=== PATIENT | male | born 1985 ===

== ENCOUNTER 2016-09-13 23:59 | Emergency (ER) | payer OTHER ==
[2016-09-14 00:08] VITALS: BP 140/68; PULSE 95; RESP 16; TEMP 96.6; O2SAT 100
[2016-09-14 01:44] LABS: HEMOGLOBIN 14.8 g/dL (12.0-18.0); MEAN CELL VOLUME 90.7 fl (80.0-94.0); MEAN CORPUSCULAR HEMOGLOBIN 30.4 pg (27.0-31.0); MEAN CORPUSCULAR HGB CONC 33.5 g/dL (33.0-37.0); RBC 4.87 Mil/uL (4.40-5.90); RED CELL DISTRIBUTION WIDTH 12.9 % (11.5-14.5)
[2016-09-14 01:49] LABS: ALBUMIN 4.7 g/dL (3.5-5.0)
[2016-09-14 01:52] LABS: AST/SGOT 26 U/L (17-59); GFR AFRICAN-AMERICAN > 60; GFR NON-AFRICAN AMERICAN 60
[2016-09-14 01:53] LABS: ALB/GLOB RATIO 1.6 (1.0-2.1); ALT/SGPT 46 U/L (21-72); BLOOD UREA NITROGEN 19 mg/dl (9-20); CALCIUM 9.8 mg/dL (8.4-10.2)
--- NOTE | 2016-09-14 03:53 | ED PDOC ---
HPI: Skin/Bite Injury Time Seen by Provider: 09/14/16 00:08 Chief Complaint (Nursing): Abnormal Skin Integrity Chief Complaint (Provider): Rash on feet and lower legs History Per: Patient History/Exam Limitations: no limitations Onset/Duration Of Symptoms: Days Current Symptoms Are (Timing): Still Present Quality Of Symptoms: Painful, Itching Severity: Moderate Pain Scale Rating Of: 5 Additional Complaint(s): Pt states he has been having itchy, burning and painful rash on the feet for a few weeks. PT was seen by Dr. Drake. Pt was given bactrim and ketoconazole. Pt states he has been taking it for 4 days and the rash is spreading. Pt reports red areas on the lower legs. No fever/chills. Past Medical History Reviewed: Historical Data, Nursing Documentation, Vital Signs Vital Signs: Last Vital Signs Temp 96.6 F L 09/14/16 00:04 Pulse 95 H 09/14/16 00:04 Resp 16 09/14/16 00:04 BP 140/68 09/14/16 00:04 Pulse Ox 100 09/14/16 03:58 - Medical History PMH: No Chronic Diseases Denies: HIV, Chronic Kidney Disease - Surgical History Surgical History: No Surg Hx - Family History Family History: States: No Known Family Hx - Living Arrangements Living Arrangements: With Family - Social History Current smoker - smoking cessation education provided: No - Home Medications Home Medications: Ambulatory Orders Medication Instructions Recorded Ibuprofen [Motrin Tab] 800 mg PO TID #60 tab 09/30/14 Valacyclovir HCl [Valtrex] 500 mg PO BIDPC #14 tab 09/30/14 Permethrin 5% [Permethrin 5% Cream] 30 g TOP ONCE #30 tube 09/14/16 - Allergies Allergies/Adverse Reactions: Allergies Allergy/AdvReac Type Severity Reaction Status Date / Time No Known Allergies Allergy Verified 09/14/16 00:04 Review of Systems ROS Statement: Except As Marked, All Systems Reviewed And Found Negative Constitutional: Negative for: Fever, Chills Physical Exam - Reviewed Nursing Documentation Reviewed: Yes Vital Signs Reviewed: Yes - Physical Exam Appears: Positive for: Well, Non-toxic, No Acute Distress Head Exam: Positive for: ATRAUMATIC, NORMAL INSPECTION, NORMOCEPHALIC Skin: Positive for: Warm, Rash (Peeling skin on the feet, (+) erythematous lesions on the lower legs with a few areas of burrows ). Negative for: Normal Color Eye Exam: Positive for: Normal appearance ENT: Positive for: Normal ENT Inspection Neck: Positive for: Normal, Painless ROM Respiratory: Negative for: Accessory Muscle Use, Respiratory Distress Gastrointestinal/Abdominal: Positive for: Normal Exam, Bowel Sounds, Soft Back: Positive for: Normal Inspection Extremity: Positive for: Normal ROM. Negative for: Tenderness Neurologic/Psych: Positive for: Alert, Oriented - Laboratory Results Result Diagrams: 09/14/16 01:42 09/14/16 01:42 - ECG O2 Sat by Pulse Oximetry: 100 Disposition - Clinical Impression Clinical Impression: Scabies - Patient ED Disposition Is Patient to be Admitted: No - Disposition Referrals: Tulio Drake MD [Primary Care Provider] - Disposition: Routine/Home Disposition Time: 03:47 Condition: GOOD Prescriptions: Permethrin 5% [Permethrin 5% Cream] 30 g TOP ONCE #30 tube Instructions: Scabies (ED)
== END 2016-09-14 04:15 | disposition home or self-care (01) ==
LOC: H.ER 23:59
DX: B86 Scabies (principal)

== ENCOUNTER 2017-10-11 17:21 | Emergency (ER) | payer SELFPAY ==
[2017-10-11 17:30] VITALS: PULSE 65; TEMP 98.5; O2SAT 99
[2017-10-11] MEDS ORDERED: Iohexol 240 (50 ml) PO ONE (18:40)
[2017-10-11] MEDS ORDERED: Sodium Chloride 0.9% 1,000 ML IV STA (18:41)
--- NOTE | 2017-10-11 19:17 | ED PDOC ---
HPI: Abdomen Time Seen by Provider: 10/11/17 17:57 Chief Complaint (Nursing): Abdominal Pain Chief Complaint (Provider): Abdominal Pain History Per: Patient History/Exam Limitations: no limitations Onset/Duration Of Symptoms: Days (x30) Current Symptoms Are (Timing): Still Present Location Of Pain/Discomfort: LLQ Additional Complaint(s): 31 y/o male with no significant PMHx presents to the ED for evaluation of constant left lower abdominal pain, worsening since onset one month ago. Patient states pain is now radiating down to his groin, testicular area and left upper leg as well as up to the left upper quadrant and left chest. Patient reports of taking Motrin with minimal relief. Patient states pain is associated with decreased appetite and mild nausea. In addition, patient states approximately two-three days ago while palpating his testicles of feeling a bump on his left groin. Denies vomiting, diarrhea, constipation, fever, back pain, sick contacts and recent travel. PMD: Dr. Drake (However, patient has not seen him in a while) Past Medical History Reviewed: Historical Data, Nursing Documentation, Vital Signs Vital Signs: Last Vital Signs Temp 98.5 F 10/12/17 00:10 Pulse 65 10/12/17 00:10 Resp 14 10/12/17 00:10 BP 116/74 10/12/17 00:10 Pulse Ox 99 10/12/17 16:38 - Medical History PMH: No Chronic Diseases Denies: HIV, Chronic Kidney Disease - Surgical History Other surgeries: Finger reimplantation and left knee infection - Family History Family History: States: Unknown Family Hx - Social History Current smoker - smoking cessation education provided: No Alcohol: Occasional (once every couple of weeks) Drugs: Denies - Home Medications Home Medications: Ambulatory Orders Medication Instructions Recorded Ibuprofen [Motrin Tab] 800 mg PO TID #60 tab 09/30/14 Valacyclovir HCl [Valtrex] 500 mg PO BIDPC #14 tab 09/30/14 Permethrin 5% [Permethrin 5% Cream] 30 g TOP ONCE #30 tube 09/14/16 Dicyclomine [Bentyl] 20 mg PO QID PRN #20 tab 10/12/17 Naproxen [Naprosyn] 1 tab PO BID PRN #30 tab 10/12/17 - Allergies Allergies/Adverse Reactions: Allergies Allergy/AdvReac Type Severity Reaction Status Date / Time No Known Allergies Allergy Verified 09/14/16 00:04 Review of Systems ROS Statement: Except As Marked, All Systems Reviewed And Found Negative (as per HPI) Constitutional: Negative for: Fever Cardiovascular: Positive for: Chest Pain Gastrointestinal: Positive for: Nausea, Abdominal Pain, Other (Decreased appetite). Negative for: Vomiting, Diarrhea, Constipation Genitourinary Male: Positive for: Other (Groin pain, Testicular pain) Musculoskeletal: Positive for: Leg Pain (left upper leg). Negative for: Back Pain Physical Exam - Reviewed Nursing Documentation Reviewed: Yes Vital Signs Reviewed: Yes - Physical Exam Appears: Positive for: Non-toxic, In Acute Distress (mild, painful) Head Exam: Positive for: ATRAUMATIC, NORMOCEPHALIC Skin: Positive for: Warm, Dry Eye Exam: Positive for: EOMI, PERRL ENT: Negative for: Pharyngeal Erythema, Tonsillar Exudate Neck: Positive for: Painless ROM, Supple Cardiovascular/Chest: Positive for: Regular Rate, Rhythm. Negative for: Murmur Respiratory: Positive for: Normal Breath Sounds. Negative for: Wheezing Gastrointestinal/Abdominal: Positive for: Normal Exam, Soft, Tenderness (TO THE LEFT LOWER QUADRANT), Distended. 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 Small papula noted to the posterior scrotal area consistent with folliculitis ) Back: Positive for: Normal Inspection. Negative for: L CVA Tenderness, R CVA Tenderness Extremity: Positive for: Normal ROM. Negative for: Deformity - Laboratory Results Result Diagrams: 10/11/17 19:15 10/11/17 19:15 - ECG O2 Sat by Pulse Oximetry: 99 (RA) Pulse Ox Interpretation: Normal Medical Decision Making Medical Decision Making: Time: 1840 Impression: Leg lower quadrant pain Differentials include but not limited to colitis, diverticulitis, enteritis and hernia Plan: -- CT Abd/Pelvis PO & IV Contrast -- Sodium Chloride IV 1000 mls/hr -- Iohexol 50 ml PO -- Toradol 15 mg IVP -- IV Insertion Time: 1914 Plan: -- CMP -- Lipase -- ED Urine Dipstick -- CBC with differentials -- CXR Portable EXAM: CT Abdomen and Pelvis With Intravenous Contrast CLINICAL HISTORY: 31 years old, male; Pain; Abdominal pain; Localized; Left lower quadrant (llq); Additional info: Llq pain. Groin pain TECHNIQUE: Axial computed tomography images of the abdomen and pelvis with intravenous contrast. All CT scans at this facility use at least one of these dose optimization techniques: automated exposure control; mA and/or kV adjustment per patient size (includes targeted exams where dose is matched to clinical indication); or iterative reconstruction. Coronal and sagittal reformatted images were created and reviewed. CONTRAST: 95 mL of [id number] was administered intravenously. COMPARISON: No relevant prior studies available. FINDINGS: Lung bases: Unremarkable. No mass. No consolidation. ABDOMEN: Liver: Unremarkable. No mass. Gallbladder and bile ducts: Unremarkable. No calcified stones. No ductal dilation. Pancreas: Unremarkable. No mass. No ductal dilation. Spleen: Unremarkable. No splenomegaly. Adrenals: Unremarkable. No mass. Kidneys and ureters: Unremarkable. No solid mass. No hydronephrosis. Stomach and bowel: Unremarkable. No obstruction. No mucosal thickening. PELVIS: Appendix: Normal appendix. Bladder: Unremarkable. No mass. Reproductive: Unremarkable as visualized. ABDOMEN and PELVIS: Intraperitoneal space: Unremarkable. No free air. No significant fluid collection. Bones/joints: No acute fracture. No dislocation. Soft tissues: Unremarkable. Vasculature: Unremarkable. No abdominal aortic aneurysm. Lymph nodes: Unremarkable. No enlarged lymph nodes. IMPRESSION: Normal abdomen and pelvis. Thank you for allowing us to participate in the care of your patient. Dictated and Authenticated by: Cheng Phillips MD 10/11/2017 11:12 PM Eastern Time ([place] & [place]) 1115p DW pt findings. Labs and CT unremarkable. Pain persists but milder. DW pt need for further outpatient evaluation, possibly with GI. Symptomatic treatment for now. Stable for dc. Scribe Attestation: Documented by Dolly Castellanos acting as a scribe for Dr. Moni Florian. Provider Scribe Attestation: All medical record entries made by the Scribe were at my direction and personally dictated by me. I have reviewed the chart and agree that the record accurately reflects my personal performance of the history, physical exam, medical decision making, and the department course for this patient. I have also personally directed, reviewed, and agree with the discharge instructions and disposition. Disposition - Clinical Impression Clinical Impression: Abdominal pain Counseled Patient/Family Regarding: Studies Performed, Diagnosis, Need For Followup, Rx Given - Disposition Referrals: [facility] [Outside] - 10/14/17 (FOLLOW UP AT CLINIC SO YOU CAN GET A REFERRAL TO THE GI CLINIC) Disposition: Routine/Home Disposition Time: 00:02 Condition: STABLE Prescriptions: Dicyclomine [Bentyl] 20 mg PO QID PRN #20 tab PRN Reason: abdominal pain Naproxen [Naprosyn] 1 tab PO BID PRN #30 tab PRN Reason: Pain Instructions: Acute Abdomen (Belly Pain), Ingrown Hair Forms: [facility] ED School/Work Excuse
[2017-10-11] MEDS ORDERED: Iohexol 240 (50 ml) ONE (19:21)
[2017-10-11 19:29] LABS: BASO % 0.3 % (0.0-2.0); EOS # 0.2 K/uL (0.0-0.7); EOS % 3.2 % (0.0-4.0); HEMOGLOBIN 16.3 g/dL (12.0-18.0); LYMPH # 1.9 K/uL (1.0-4.3); MEAN CELL VOLUME 90.8 fl (80.0-94.0); MEAN CORPUSCULAR HGB CONC 34.2 g/dL (33.0-37.0); MEAN PLATELET VOLUME 10.3 fl (7.2-11.7); MONO # 0.6 K/uL (0.0-0.8); MONO % 7.7 % (0.0-10.0); NEUT # 4.9 K/uL (1.8-7.0); NEUT % 63.8 % (50.0-75.0); NRBC % 0.1 % (0.0-0.0); RBC 5.26 Mil/uL (4.40-5.90); RED CELL DISTRIBUTION WIDTH 13.1 % (11.5-14.5); WHITE BLOOD COUNT 7.6 K/uL (4.8-10.8)
[2017-10-11 19:41] LABS: ALB/GLOB RATIO 1.4 (1.0-2.1); ALBUMIN 5.3 g/dL (3.5-5.0); ALT/SGPT 50 U/L (21-72); AST/SGOT 50 U/L (17-59); BLOOD UREA NITROGEN 13 mg/dl (9-20); CALCIUM 10.2 mg/dL (8.4-10.2); GFR NON-AFRICAN AMERICAN > 60; LIPASE 92 U/L (23-300)
[2017-10-11] MEDS ORDERED: Iohexol 300 100 ML IJ ONE (21:00)
[2017-10-11] MEDS ORDERED: Sodium Chloride 0.9% 50 ML IV ONE (21:01)
[2017-10-12 00:30] VITALS: BP 116/74; RESP 14
--- NOTE | 2017-10-12 15:29 | RAD ---
Date of service: 10/11/2017 HISTORY: chest pain COMPARISON: Chest 09/27/2014 FINDINGS: LUNGS: No active pulmonary disease. PLEURA: No significant pleural effusion identified, no pneumothorax apparent. Suspect minimal biapical pleural thickening CARDIOVASCULAR: Normal. OSSEOUS STRUCTURES: No significant abnormalities. VISUALIZED UPPER ABDOMEN: Normal. OTHER FINDINGS: None. IMPRESSION: No active disease.
--- NOTE | 2017-10-12 17:29 | CT ---
Date of service: 10/11/2017 PROCEDURE: CT abdomen pelvis HISTORY: LLQ pain COMPARISON: None. TECHNIQUE: Contiguous axial images of the abdomen and pelvis of following oral and intravenous injection of approximately 95 cc Omnipaque 300 Coronal and Sagittal reformats generated. Radiation dose: Total exam DLP = 914 the mGy-cm. This CT exam was performed using one or more of the following dose reduction techniques: Automated exposure control, adjustment of the mA and/or kV according to patient size, and/or use of iterative reconstruction technique. FINDINGS: LOWER THORAX: Unremarkable. LIVER: Liver exhibits normal size No gross lesion or ductal dilatation. Mild fatty hepatic infiltration. Portal and splenic veins are opacified. GALLBLADDER AND BILE DUCTS: Unremarkable. PANCREAS: Unremarkable. No mass. No ductal dilatation. SPLEEN: Unremarkable. No splenomegaly. ADRENALS: Unremarkable. KIDNEYS AND URETERS: Unremarkable. No stone or hydronephrosis. BLADDER: Urinary bladder incompletely distended which presumably in part accounts thick-walled appearance. Muscular hypertrophy may contribute. REPRODUCTIVE: Unremarkable. APPENDIX: Normal appendix. BOWEL: Unremarkable. No obstruction. No gross mural thickening. PERITONEUM: Unremarkable. No fluid collection. No free air. Tiny fat containing left hernia inguinal hernia LYMPH NODES: Few small nonspecific retroperitoneal lymph nodes are present. VASCULATURE: Unremarkable. No aortic aneurysm. BONES: No fracture or destructive lesion. OTHER FINDINGS: None. IMPRESSION: No acute intra abdominal pathology. . Wall thickening of the urinary bladder likely due to incomplete distention and muscular hypertrophy however correlation with urinalysis to exclude cystitis.
== END 2017-10-12 00:15 | disposition home or self-care (01) ==
LOC: H.ER 17:21
DX: R10.32 Left lower quadrant pain (principal)
CPT/HCPCS: 71045; 74177; 80053; 83690; 85025; 96361; 96374; 99284; J1885; J7030; Q9966; Q9967

== ENCOUNTER 2017-12-06 16:18 | Inpatient (IN) | payer BC ==
[2017-12-06 20:26] VITALS: BMI 28.1
[2017-12-07 07:02] LABS: BASO % 0.3 % (0.0-2.0); EOS # 0.3 K/uL (0.0-0.7); EOS % 3.4 % (0.0-4.0); HEMOGLOBIN 14.8 g/dL (12.0-18.0); MEAN CELL VOLUME 90.7 fl (80.0-94.0); MEAN CORPUSCULAR HEMOGLOBIN 31.4 pg (27.0-31.0); MEAN CORPUSCULAR HGB CONC 34.6 g/dL (33.0-37.0); MEAN PLATELET VOLUME 9.5 fl (7.2-11.7); MONO # 0.8 K/uL (0.0-0.8); MONO % 8.9 % (0.0-10.0); NEUT # 5.4 K/uL (1.8-7.0); NEUT % 63.4 % (50.0-75.0); NRBC % 0.1 % (0.0-0.0); RBC 4.72 Mil/uL (4.40-5.90); RED CELL DISTRIBUTION WIDTH 13.6 % (11.5-14.5); WHITE BLOOD COUNT 8.5 K/uL (4.8-10.8)
[2017-12-07 07:09] LABS: ALB/GLOB RATIO 1.3 (1.0-2.1); ALBUMIN 4.5 g/dL (3.5-5.0); ALT/SGPT 121 U/L (21-72); AST/SGOT 54 U/L (17-59); BLOOD UREA NITROGEN 20 mg/dl (9-20); CALCIUM 9.9 mg/dL (8.4-10.2); GFR NON-AFRICAN AMERICAN > 60
--- NOTE | 2017-12-07 14:23 | CP.PCM.CON ---
History of Present Illness - History of Present Illness History of Present Illness: Dr Darling PMR consultation on Carlito Patel, born 1985 who has been admitted to [facility] for acute inpatient rehabilitation following a left KINDRA distribution infarct in the ignacio-operative period of left inguinal hernia repair. He stated that in the recovery room he was joking around. No prior issues for this gentleman Review of Systems - Constitutional Constitutional: absent: Anorexia, Chills - EENT Eyes: absent: Change in Vision Nose/Mouth/Throat: absent: Nasal Congestion - Cardiovascular Cardiovascular: absent: Chest Pain - Respiratory Respiratory: absent: Dyspnea, Hemoptysis - Gastrointestinal Gastrointestinal: Constipation. absent: Abdominal Pain, Belching, Bloating - Musculoskeletal Musculoskeletal: absent: Back Pain - Integumentary Integumentary: absent: Bleeding Lesions - Neurological Neurological: Focal Weakness. absent: Abnormal Hearing, Abnormal Movements - Psychiatric Psychiatric: absent: Anxiety Past Patient History - Past Medical History & Family History Past Medical History?: No - Past Social History Smoking Status: See note Alcohol: None Drugs: Denies Home Situation {Lives}: With Family (stairs) - CARDIAC Hx Cardiac Disorders: No - PULMONARY Hx Respiratory Disorders: Yes Hx Asthma: Yes (Only when pt. was "a little kid") - NEUROLOGICAL Hx Neurological Disorder: No - HEENT Hx HEENT Problems: No - RENAL Hx Chronic Kidney Disease: No - ENDOCRINE/METABOLIC Hx Endocrine Disorders: No - HEMATOLOGICAL/ONCOLOGICAL Hx AIDS: No Hx Human Immunodeficiency Virus (HIV): No - INTEGUMENTARY Hx Dermatological Problems: No Other/Comment: CHICKEN POX - MUSCULOSKELETAL/RHEUMATOLOGICAL Hx Falls: No Other/Comment: - Post-operative extrapyramidal deficit - GASTROINTESTINAL Hx Gastrointestinal Disorders: No - GENITOURINARY/GYNECOLOGICAL Hx Genitourinary Disorders: Yes Other/Comment: - Post-operative urinary retention - PSYCHIATRIC Hx Substance Use: No - SURGICAL HISTORY Hx Surgeries: Yes Other/Comment: - 11/27/2017: Laparoscopic left inguinal hernia repair. 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 - When patient was [age] years of age: surgery to reattach left middle finger. LEFT 3RD FINGER REPAIR - ANESTHESIA Hx Anesthesia: Yes Hx Anesthesia Reactions: Yes (1) No recollection and no swallowing for about 3 days) Hx Malignant Hyperthermia: No Has any member of the family had a problem w/ anesthesia?: No Meds Allergies/Adverse Reactions: Allergies Allergy/AdvReac Type Severity Reaction Status Date / Time No Known Allergies Allergy Verified 12/06/17 20:26 - Medications Medications: Current Medications Acetaminophen (Tylenol 325mg Tab) 650 mg PO Q6 PRN PRN Reason: .Pain (scale 4-10) Last Admin: 12/06/17 23:01 Dose: 650 mg Benztropine Mesylate (Cogentin) 0.5 mg PO DAILY RAMY Stop: 12/08/17 09:01 Last Admin: 12/07/17 08:30 Dose: 0.5 mg Physical Exam - Constitutional Appears: Well, Non-toxic, No Acute Distress - Head Exam Head Exam: ATRAUMATIC, NORMAL INSPECTION, NORMOCEPHALIC - Eye Exam Eye Exam: EOMI - ENT Exam ENT Exam: Mucous Membranes Moist - Respiratory Exam Respiratory Exam: NORMAL BREATHING PATTERN - Cardiovascular Exam Cardiovascular Exam: REGULAR RHYTHM - GI/Abdominal Exam GI & Abdominal Exam: absent: Distended - Extremities Exam Extremities exam: Negative for: calf tenderness - Neurological Exam Neurological exam: Alert, CN II-XII Intact, Oriented x3 - Psychiatric Exam Psychiatric exam: Normal Affect, Normal Mood Results - Vital Signs Recent Vital Signs: Last Vital Signs Temp 97.5 F L 12/07/17 09:41 Pulse 64 12/07/17 09:41 Resp 20 12/07/17 09:41 BP 107/65 12/07/17 09:41 Pulse Ox 98 12/07/17 09:41 - Labs Result Diagrams: 12/07/17 05:25 12/08/17 05:25 Labs: Laboratory Results - last 24 hr 12/07/17 12/07/17 05:25 05:25 WBC 8.5 RBC 4.72 Hgb 14.8 Hct 42.8 MCV 90.7 MCH 31.4 H MCHC 34.6 RDW 13.6 Plt Count 215 MPV 9.5 Neut % (Auto) 63.4 Lymph % (Auto) 24.0 [place] % (Auto) 8.9 Eos % (Auto) 3.4 Baso % (Auto) 0.3 Neut # (Auto) 5.4 Lymph # (Auto) 2.0 [place] # (Auto) 0.8 Eos # (Auto) 0.3 Baso # (Auto) 0.0 Sodium 142 Potassium 4.5 Chloride 105 Carbon Dioxide 28 Anion Gap 14 BUN 20 Creatinine 0.8 Est GFR ( Amer) > 60 Est GFR (Non-Af Amer) > 60 Random Glucose 98 Calcium 9.9 Total Bilirubin 0.4 AST 54 ALT 121 H D Alkaline Phosphatase 39 Total Protein 7.8 Albumin 4.5 Globulin 3.4 Albumin/Globulin Ratio 1.3 Assessment & Plan - Assessment and Plan (Free Text) Assessment: Patient with acute onset of right LE>UE HP with dysphagia and urinary retention PT/OT to continue to help increase functional independence Team conference for d/c planning Pain: controlled Vascular: no evidence of DVT GI: No evidence of constipation or diarrhea Patient is an excellent acute rehabilitation candidate and will have focused speech, PT, OT and recreational therapy to help facilitate a safe and appropriate d/c plan impairment code: 01.2
--- NOTE | 2017-12-07 14:24 | PCM.OPOC ---
Physiatry Overall Plan of Care - Overall Plan of Care Estimated Length of Stay in Weeks: 3 Rehab Impairment: Mobility, Gait, Speech, Balance, Coordination Etiologic Diagnosis: Cerebrovascular Accident Rehab/Medical Prognosis: Good - Anticipated Interventions Physical Therapy:: Yes Occupational Therapy:: Yes Speech Therapy:: Yes Recreational Therapy:: Yes - Therapy Goals Bed Mobility: Supervision Ambulation: Supervision Functional Positional Changes:: Supervision - Discharge Plan Identification of Barriers to Discharge: Home Situation Discharge Destination: Subacute
[2017-12-08 07:44] LABS: ALB/GLOB RATIO 1.3 (1.0-2.1); ALBUMIN 4.4 g/dL (3.5-5.0); ALT/SGPT 114 U/L (21-72); AST/SGOT 44 U/L (17-59); BLOOD UREA NITROGEN 17 mg/dl (9-20); CALCIUM 9.8 mg/dL (8.4-10.2); GFR NON-AFRICAN AMERICAN > 60; HDL CHOLESTEROL 25 MG/DL (30-70)
[2017-12-08 07:55] LABS: LDL CHOLESTEROL 137 mg/dL (0-129)
--- NOTE | 2017-12-09 08:00 | CP.PCM.HP ---
History of Present Illness - History of Present Illness History of Present Illness: This is a 32 y/o male admitted for acute rehab after he develop speech and swallowing difficulty and right sided hemiparesis while in the recovery after a left inguinal hernia repair. He claims that his speech was much worst a week ago and that his right upper and lower ext were much weaker a week ago. He was started with phys therapy and transferred to Acute rehab for further PT . He has no previous medical condition. Present on Admission - Present on Admission Any Indicators Present on Admission: No History of DVT/PE: No History of Uncontrolled Diabetes: No Urinary Catheter: No Decubitus Ulcer Present: No Past Patient History - Past Medical History & Family History Past Medical History?: No - Past Social History Smoking Status: See note - CARDIAC Hx Cardiac Disorders: No - PULMONARY Hx Respiratory Disorders: Yes Hx Asthma: Yes (Only when pt. was "a little kid") - NEUROLOGICAL Hx Neurological Disorder: No - HEENT Hx HEENT Problems: No - RENAL Hx Chronic Kidney Disease: No - ENDOCRINE/METABOLIC Hx Endocrine Disorders: No - HEMATOLOGICAL/ONCOLOGICAL Hx AIDS: No Hx Human Immunodeficiency Virus (HIV): No - INTEGUMENTARY Hx Dermatological Problems: No Other/Comment: CHICKEN POX - MUSCULOSKELETAL/RHEUMATOLOGICAL Hx Falls: No Other/Comment: - Post-operative extrapyramidal deficit - GASTROINTESTINAL Hx Gastrointestinal Disorders: No - GENITOURINARY/GYNECOLOGICAL Hx Genitourinary Disorders: Yes Other/Comment: - Post-operative urinary retention - PSYCHIATRIC Hx Substance Use: No - SURGICAL HISTORY Hx Surgeries: Yes Other/Comment: - 11/27/2017: Laparoscopic left inguinal hernia repair. 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 - When patient was [age] years of age: surgery to reattach left middle finger. LEFT 3RD FINGER REPAIR - ANESTHESIA Hx Anesthesia: Yes Hx Anesthesia Reactions: Yes (1) No recollection and no swallowing for about 3 days) Hx Malignant Hyperthermia: No Has any member of the family had a problem w/ anesthesia?: No Meds Allergies/Adverse Reactions: Allergies Allergy/AdvReac Type Severity Reaction Status Date / Time No Known Allergies Allergy Verified 12/06/17 20:26 Physical Exam - Head Exam Additional comments: no facial palsy - Eye Exam Eye Exam: Normal appearance - ENT Exam ENT Exam: Mucous Membranes Moist - Respiratory Exam Respiratory Exam: Clear to Auscultation Bilateral - Cardiovascular Exam Cardiovascular Exam: REGULAR RHYTHM - Neurological Exam Additional comments: Difficulty with initiation of speech. Stutters on initiation of speech. 4 / 5 motor weakness on right upper exremity 3/5 motor weakness on the right lower extremity No facial palsy The rest of the CN are all intact. Results - Vital Signs Recent Vital Signs: Last Vital Signs Temp 98.2 F 12/08/17 22:00 Pulse 77 12/08/17 22:00 Resp 20 12/08/17 22:00 BP 118/60 12/08/17 22:00 Pulse Ox 97 12/08/17 22:00 - Labs Result Diagrams: 12/07/17 05:25 12/08/17 05:25 Labs: Laboratory Results - last 24 hr 12/08/17 05:25 TSH 3rd Generation 1.88 Assessment & Plan (1) Hemiparesis affecting right side as late effect of cerebrovascular accident Status: Acute (2) Aphasia as late effect of cerebrovascular accident Status: Acute (3) Constipation Status: Acute - Assessment and Plan (Free Text) Plan: start phys therapy speech eval and tx cont meds stool softener.
--- NOTE | 2017-12-09 08:02 | CP.PCM.PN ---
Subjective - Date & Time of Evaluation Date of Evaluation: 12/08/17 Time of Evaluation: 13:00 - Subjective Subjective: patient feels aot better Still with difficulty with speech Able to swallow but with difficulty has persistent hemiparesis. he is very hopeful that he gets better with therapy. Objective - Vital Signs/Intake and Output Vital Signs (last 24 hours): Temp Pulse Resp BP Pulse Ox 98.2 F 77 20 118/60 97 12/08/17 22:00 12/08/17 22:00 12/08/17 22:00 12/08/17 22:00 12/08/17 22:00 Intake and Output: 12/09/17 12/09/17 06:59 18:59 Intake Total 200 Output Total 800 Balance -600 - Medications Medications: Current Medications Acetaminophen (Tylenol 325mg Tab) 650 mg PO Q6 PRN PRN Reason: .Pain (scale 4-10) Last Admin: 12/06/17 23:01 Dose: 650 mg Docusate Sodium (Colace) 100 mg PO BID [facility] Last Admin: 12/08/17 18:10 Dose: 100 mg Famotidine (Pepcid) 20 mg PO DAILY [facility] Last Admin: 12/08/17 08:19 Dose: 20 mg - Labs Labs: 12/07/17 05:25 12/08/17 05:25 - Eye Exam Eye Exam: Normal appearance - Respiratory Exam Respiratory Exam: Clear to Ausculation Bilateral - Cardiovascular Exam Cardiovascular Exam: REGULAR RHYTHM - GI/Abdominal Exam GI & Abdominal Exam: Normal Bowel Sounds - Extremities Exam Additional comments: right hemiparesis - Neurological Exam Neurological Exam: Awake, Oriented x3 Additional comments: right hemiparesis aphasia with difficulty with initiation of words/ sentences Assessment and Plan (1) Hemiparesis affecting right side as late effect of cerebrovascular accident Status: Acute (2) Aphasia as late effect of cerebrovascular accident Status: Acute (3) Constipation Status: Acute (4) Urinary retention Status: Acute - Assessment and Plan (Free Text) Plan: Cont meds Cont tx Cont meds speech therapy
--- NOTE | 2017-12-09 20:27 | CP.PCM.PN ---
Subjective - Date & Time of Evaluation Date of Evaluation: 12/09/17 Time of Evaluation: 20:23 - Subjective Subjective: UROLOGY consult dictated. Imp post op urine retention and multi organ paralysis. Espinal should remain indwelling for at least 1 week till such time he is moving bowels better and hopefully ambulatory Objective - Vital Signs/Intake and Output Vital Signs (last 24 hours): Temp Pulse Resp BP Pulse Ox 97.7 F 87 20 111/63 98 12/09/17 08:02 12/09/17 08:43 12/09/17 08:02 12/09/17 08:02 12/09/17 08:43 Intake and Output: 12/09/17 12/10/17 18:59 06:59 Intake Total 600 Output Total 680 Balance -80 - Medications Medications: Current Medications Acetaminophen (Tylenol 325mg Tab) 650 mg PO Q6 PRN PRN Reason: .Pain (scale 4-10) Last Admin: 12/09/17 10:26 Dose: 650 mg Docusate Sodium (Colace) 100 mg PO BID [facility] Last Admin: 12/09/17 16:53 Dose: 100 mg Famotidine (Pepcid) 20 mg PO DAILY [facility] Last Admin: 12/09/17 08:15 Dose: 20 mg Phenazopyridine HCl (Pyridium) 200 mg PO Q12 [facility] Senna/Docusate Sodium (Senokot S 50 Mg-8.6 Mg) 2 tab PO HS [facility] - Labs Labs: 12/07/17 05:25 12/08/17 05:25
[2017-12-09] MEDS: Docusate-Senna 50 mg-8.6 mg Tab PO SCH (22:12)
--- NOTE | 2017-12-10 03:02 | CON ---
DATE: 12/09/2017 NEUROLOGY CONSULTATION REASON FOR CONSULTATION: Right lower extremity weakness and dysarthria. HISTORY OF PRESENTING ILLNESS: The patient is 32-year-old male who underwent inguinal hernia repair earlier this month. After the surgery as the patient was in recovery, he had some kind of acute dystonic reaction. After that, the patient said he was paralysis in both legs. The patient was also noted to have severe dysarthria. His dysarthria seems to be getting better. His weakness in the left lower extremity is resolved; however, he continues to have weakness in the right lower extremity. The patient also had urinary retention with residual volume on straight cath was 900 mL when the patient was in the hospital. Currently, the patient has a Espinal catheter. The patient was evaluated by neurologists in the outside hospital. The patient apparently had MRI of the brain done, which was normal. The patient also had video EEG monitoring, which did not show any epileptogenic activity. The patient denies any headache or dizziness. Denies any difficulty with swallowing, however, does say that he has difficulty with speech. REVIEW OF SYSTEMS: Denies any headache, dizziness, chest pain, shortness of breath, abdominal pain, constipation, diarrhea, dysuria, cough, or sputum production. PAST MEDICAL HISTORY: None. CURRENT MEDICATIONS: Include Colace, Pepcid, Pyridium, and Tylenol. ALLERGIES: NO KNOWN DRUG ALLERGIES. SOCIAL HISTORY: The patient denies smoking, use of alcohol, or illicit drugs. He sometime smokes cigars. FAMILY HISTORY: Reviewed and noncontributory to the case. PHYSICAL EXAMINATION: GENERAL: The patient is a middle-aged pleasant male, sitting in no acute distress. VITAL SIGNS: His blood pressure is 139/68, heart rate is 87 per minute, breathing at the rate of 16 per minute, and temperature is 97.7 degrees Fahrenheit. HEENT: Normocephalic and atraumatic. NECK: Supple. There are no carotid bruits. LUNGS: Clear. CARDIOVASCULAR SYSTEM: S1 and S2 audible. No murmurs. ABDOMEN: Soft and nontender. Bowel sounds are present. NEUROLOGIC EXAMINATION: Mental status: The patient is awake, alert, oriented to time, place, and person. Speech is slightly scanning; however at times, the patient's speech is fluent. Naming and repetition are normal. Memory and cognition appear intact. Cranial nerve examination: Pupils are 3 mm bilaterally, reactive to light. Visual ridley are full. Extraocular movements are intact. There is no facial asymmetry. Palate is upgoing bilaterally and tongue is midline. Motor examination: Tone is normal in the upper extremities. Power is 5/5 in the upper extremities. In the lower extremities, tone is decreased on the right side. The power in the right lower extremity is 0/5, and power in the left lower extremity is 5/5. Reflexes in upper extremities are +2 and symmetrical. Reflexes in lower extremities: His knee jerk is +2 on the left side and +1 on the right side. Reflex in the right ankle is absent, and the left ankle is +2. Plantars equivocal. The sensory examination is decreased soft touch and pinprick in the right lower extremity up to T1 level and then hypersensitivity to touch up to T10 level on the right side. Gait is untested because the patient having paralysis in the right lower extremity. [id number] shows no dysmetria. LABORATORY DATA: Labs review shows WBC of 8.5, hemoglobin 14.8, hematocrit of 42.8, and platelets of 215. Sodium is 141, potassium 4.4, chloride of 101, carbon dioxide content 29, BUN of 17, creatinine 1, and glucose of 99. IMPRESSION: New onset of right lower extremity associated with urinary retention and decreased sensation in the right lower extremity along with some dysarthric symptoms. RECOMMENDATIONS: 1. The patient to have MRI of the brain without contrast to rule out any brainstem pathology response of the patient's symptoms. 2. The patient also to have MRI of the lumbar and thoracic spine without contrast. This is to look for any pathology in the cauda equina region as well as in the lower thoracic spinal cord. 3. The patient to have ENT evaluation as one of the imaging studies from outside hospital shows some evidence of vocal cord paralysis. 4. The patient to have physical therapy as well as speech therapy. 5. Please continue the treatment and supportive care as well as considered urology evaluation. Thank you for the opportunity to participate in the care of this patient. Lincoln Roberson MD
--- NOTE | 2017-12-10 13:11 | PSY.TMCNF ---
Nursing - Vital Signs Vital Signs (Last 8 hours): Vital Signs 12/10/17 12/10/17 09:00 09:18 Temperature 97.6 F 97.2 F L Pulse Rate 77 78 Respiratory 20 20 Rate Blood Pressure 128/70 122/78 O2 Sat by Pulse 98 Oximetry Pain: 0 - Skin Incision Site: Abdomen x 3 sites (appears like scratch barr Incision Line Treatment: Open to air - Bladder Management Bladder Pattern: Retention Voiding Method: Indwelling Catheter - Bowel Management Bowel Pattern: Constipated - Goals/Time Frame Comments: Pt was seen awake and alert sitting in his wheelchair in his room. Pt agreeable to visit. Pt stated that he prefers to be called "Gas" throughout stay on unit. Pt was able to identify his leisure interests such as working, spending time with friends and family, enjoys being active, shopping, sports, and going out to eat with friends. Pt reported that his goal is to improve his speech fluency and walking. 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 Pt presents with positive mood state and agreeable to participate in recreation therapy sessions throughout his stay on unit. Physical Therapy - Transfers Sit to Stand: Minimal Assistance - Ambulation Distance (ft.): 55 - Stair Negotiation Stairs: Level of Assistance: Moderate Assistance Number of Stairs: 3 Stairs: Assistive Devices: Left Handrail, Right Handrail - Standing Balance Static Stand: Minimal Assistance Dynamic Stand: Moderate Assistance - Pain Management Techniques: Inactivity - Assessment/Plan Assessment: Mr. Patel presents with impaired RLE/RUE strength and sensation following hernia repair surgery. Pt currently requires min A for bed mobility, min A for transfers, mod A for ambulating with RW. Pt previously (I) in PLOF. Pt will benefit from skilled PT interventions to address deficits, reduce fall risk, and maximize functional independence. Recommend d/c home with intermittent supervision and home services pending pt progress in acute rehab. - Provider License Number: [id number] Occupational Therapy - Arousal/Attention/Orientation Patient Orientation: Person, Place, Time, Appropriate to Age, Appropriate to Situation - ADL/IADL Self Feeding: Set-up Help Grooming: Set-up Help Dressing-Upper Extremity: Minimal Assistance Dressing-Lower Extremity: Maximum Assistance - Transfers Wheelchair to Bed Transfers: Minimal Assistance Toilet Transfers: Minimal Assistance - Pain Alleviating Techniques: Inactivity - Assessment/Plan Assessment: Mr. Patel presents with impaired RLE/RUE strength and sensation following hernia repair surgery. Pt currently requires min A for bed mobility, min A for transfers, mod A for ambulating with RW. Pt previously (I) in PLOF. Pt will benefit from skilled PT interventions to address deficits, reduce fall risk, and maximize functional independence. Recommend d/c home with intermittent supervision and home services pending pt progress in acute rehab. - Provider Therapist: HERMAN Barkley/[facility] - Plan Assessment: Mr. Patel presents with impaired RLE/RUE strength and sensation following hernia repair surgery. Pt currently requires min A for bed mobility, min A for transfers, mod A for ambulating with RW. Pt previously (I) in PLOF. Pt will benefit from skilled PT interventions to address deficits, reduce fall risk, and maximize functional independence. Recommend d/c home with intermittent supervision and home services pending pt progress in acute rehab. Frequency: 3-5 times per week Duration: 1 week Recreational Therapy - Socialization Level of Socialization: Initiates/interacts freely with care givers and peer - Assessment Assessment/Plan: Mr. Patel presents with impaired RLE/RUE strength and sensation following hernia repair surgery. Pt currently requires min A for bed mobility, min A for transfers, mod A for ambulating with RW. Pt previously (I) in PLOF. Pt will benefit from skilled PT interventions to address deficits, reduce fall risk, and maximize functional independence. Recommend d/c home with intermittent supervision and home services pending pt progress in acute rehab. Problems Currently Limiting Participation: impaired speech vocalization, impaired swallowing, R side weakness - Provider Therapist: Sarah Vidal, [employer] #[id number] Nutrition - Appetite Percent Meal Consumed: 75-100% Case Management - Discharge Plan Discharge Plan: Home with significant other/family Rehabilitation Plan - Treatment Plan Treatment Plan: Physical Therapy, Occupational Therapy, Speech, Dietary, Patient/Family Education - Discharge Plan Estimated Date of Discharge: 12/27/17 Discharge to: Home
--- NOTE | 2017-12-10 14:27 | MRI ---
Date of service: 12/10/2017 PROCEDURE: MRI BRAIN WITHOUT CONTRAST HISTORY: dysarthria COMPARISON: Noncontrast head CT from 09/27/2014 TECHNIQUE: Multiplanar, multisequence MR images of the brain were obtained without intravenous contrast enhancement. FINDINGS: HEMORRHAGE: None DWI: No evidence of an acute or early subacute infarction. BRAIN PARENCHYMA: Whelan-white matter differentiation is preserved. There is no mass, mass effect or abnormal extra-axial fluid collection. There is no territorial infarction. The midline sagittal structures are normal. VENTRICLES: The ventricles are normal in size, shape and configuration. CRANIUM: There is normal bone marrow signal pattern. ORBITS: Grossly unremarkable. PARANASAL SINUSES/MASTOIDS: There is mild polypoid mucosal thickening in the left maxillary sinus and minimal mucosal thickening in the remaining all paranasal sinuses. The mastoid air cells are predominantly clear P VASCULAR SYSTEM: Skull base flow voids intact. OTHER FINDINGS: None. IMPRESSION: No acute intracranial abnormality. Specifically, no evidence for acute infarction.
--- NOTE | 2017-12-10 15:35 | MRI ---
Date of service: 12/10/2017 PROCEDURE: MR LUMBAR SPINE WITHOUT CONTRAST HISTORY: right leg weakness, urinary retention COMPARISON: None available. TECHNIQUE: Multiecho multiplanar sequences were performed through the lumbar spine without the use of intravenous contrast. FINDINGS: There is normal alignment of the lumbar vertebral bodies. There is normal lumbar lordosis. There is no acute fracture, spondylolysis or spondylolisthesis. Bone marrow signal is within normal limits. The conus medullaris terminates at a normal level and the nerve roots of cauda equina are normal. T12-L1: No disc herniation, spinal canal stenosis or neural foraminal narrowing. L1-2: No disc herniation, spinal canal stenosis or neural foraminal narrowing. L2-3: No disc herniation, spinal canal stenosis or neural foraminal narrowing. L3-4: No disc herniation, spinal canal stenosis or neural foraminal narrowing. L4-5: Small central disc protrusion without spinal canal stenosis or neural foraminal narrowing. Mild bilateral facet arthropathy contributes to mild neural foraminal narrowing. L5-S1: Mild posterior disc bulge and mild bilateral facet arthropathy without spinal canal stenosis or neural foraminal narrowing. OTHER FINDINGS: Paraspinous soft tissues are normal. Imaged portion of the retroperitoneum is within normal limits. IMPRESSION: No acute fracture, spondylolysis or spondylolisthesis. Mild degenerative disc disease at L4-5 with a small central disc protrusion and mild neural foraminal narrowing. No central spinal canal stenosis. Conus medullaris terminates at a normal level and the nerve roots of cauda equina are normal.
--- NOTE | 2017-12-10 15:47 | MRI ---
Date of service: 12/10/2017 PROCEDURE: MR THORACIC SPINE WITHOUT CONTRAST HISTORY: Right leg weakness. Urinary retention. COMPARISON: None available. TECHNIQUE: Multiecho multiplanar sequences were performed through the thoracic spine without the use of intravenous contrast. FINDINGS: ALIGNMENT: There is normal alignment of the thoracic vertebral bodies. There is normal thoracic kyphosis. VERTEBRA: Vertebral body height are preserved. No acute fracture. MARROW: Marrow signal is within normal limits. PARASPINAL SOFT TISSUES: The paraspinous soft tissues are normal. Imaged intrathoracic structures are grossly within normal limits. CORD: The thoracic cord is normal in contour, caliber and has normal intrinsic signal. No evidence for cord compression. DISCS: The disc heights are maintained. There is normal intrinsic signal intensity. There is mild multilevel facet arthropathy. At T6-7, small left paracentral disc protrusion without central spinal canal stenosis. No large disc herniation, neural foraminal narrowing or central spinal canal stenosis. OTHER FINDINGS: None. IMPRESSION: No acute fracture or marrow infiltrative process. Small left paracentral disc protrusion at T6-7. No neural foraminal narrowing, central spinal canal stenosis or cord compression. The spinal canal is widely patent.
--- NOTE | 2017-12-10 20:34 | CON ---
DATE: 12/09/2017 This is a 32-year-old male patient who I was called to evaluate because of urinary retention. The history of the condition is as follows. The patient was diagnosed and had elective surgery for a left inguinal hernia. Postoperatively, the patient developed almost in recovery room a paralysis that involved his vocal cords, the entire lower extremities, both legs down, and for a while the patient was aphasic, so it appeared to be some complication due to some medication that he might have received during the procedure. He does not come from any background of having urinary problems. The patient was straight cathed on several occasions. At one time he had over 1000 mL, another occasion it was over 500 mL. The patient also was having significant difficulty with bowel movements. He was given castor oil and other forms of laxatives and he is slowly, at the time of this consult, beginning to have some spontaneous bowel movements, but they are rock hard and rather large in size. He has a small 14-Syriac Espinal catheter inserted, which is draining clear urine. At this point, I told the patient that the catheter should probably remain indwelling at least until he has normalized bowel movements and that he is able to get out of bed and perhaps in a more sedentary way in a chair before any consideration to remove the Espinal catheter. Potentially, it could be a week or more, but that will be more clearly evident as the days go by and as the patient improves his overall GI and neurologic condition. Tito Dalal MD
[2017-12-10] MEDS: Docusate-Senna 50 mg-8.6 mg Tab PO SCH (21:29)
--- NOTE | 2017-12-11 13:01 | CP.PCM.PN ---
Subjective - Date & Time of Evaluation Date of Evaluation: 12/11/17 Time of Evaluation: 11:30 - Subjective Subjective: no acute complaints at present Objective - Vital Signs/Intake and Output Vital Signs (last 24 hours): Temp Pulse Resp BP Pulse Ox 97.2 F L 67 22 115/65 98 12/11/17 08:21 12/11/17 08:21 12/11/17 08:21 12/11/17 08:21 12/11/17 08:21 Intake and Output: 12/11/17 12/11/17 06:59 18:59 Intake Total 120 Output Total 2 Balance 118 - Medications Medications: Current Medications Acetaminophen (Tylenol 325mg Tab) 650 mg PO Q6 PRN PRN Reason: .Pain (scale 4-10) Last Admin: 12/09/17 10:26 Dose: 650 mg Docusate Sodium (Colace) 100 mg PO BID [facility] Last Admin: 12/11/17 08:53 Dose: 100 mg Famotidine (Pepcid) 20 mg PO DAILY [facility] Last Admin: 12/11/17 08:53 Dose: 20 mg Phenazopyridine HCl (Pyridium) 200 mg PO Q12 [facility] Last Admin: 12/11/17 08:53 Dose: 200 mg Senna/Docusate Sodium (Senokot S 50 Mg-8.6 Mg) 2 tab PO HS [facility] Last Admin: 12/10/17 21:29 Dose: 2 tab - Labs Labs: 12/07/17 05:25 12/08/17 05:25 - Head Exam Head Exam: ATRAUMATIC, NORMAL INSPECTION, NORMOCEPHALIC - Eye Exam Eye Exam: EOMI, Normal appearance, PERRL Pupil Exam: NORMAL ACCOMODATION - ENT Exam ENT Exam: Mucous Membranes Moist, Normal Exam - Neck Exam Neck Exam: Full ROM - Respiratory Exam Respiratory Exam: NORMAL BREATHING PATTERN - Cardiovascular Exam Cardiovascular Exam: REGULAR RHYTHM - GI/Abdominal Exam GI & Abdominal Exam: Soft, Normal Bowel Sounds - Exam External exam: NORMAL EXTERNAL EXAM - Extremities Exam Extremities Exam: Full ROM, Normal Capillary Refill - Back Exam Back Exam: NORMAL INSPECTION - Neurological Exam Neurological Exam: Alert, Awake - Psychiatric Exam Psychiatric exam: Normal Affect, Normal Mood Assessment and Plan (1) Abdominal pain Status: Acute (2) Fever Status: Acute (3) Hand pain Status: Acute (4) Headache Status: Acute (5) Prophylactic measure Status: Acute (6) Scabies Status: Acute (7) Subungual hematoma Status: Acute - Assessment and Plan (Free Text) Assessment: CVa plan for pt, ot rec therapy covering for Dr miranda
--- NOTE | 2017-12-11 19:12 | PN ---
DATE: 12/11/2017 SUBJECTIVE: Patient is sitting on the wheel chair, in no acute distress. Denies having any headache or dizziness. Continues to have weakness in the right leg; however, today he says he was able to wiggle his toes a little. Still has the difficulty. PHYSICAL EXAMINATION: VITAL SIGNS: His blood pressure is 115/65, heart rate is 67 per minute, breathing at the rate of 16 per minute, and temperature 97.2 degrees Fahrenheit. HEENT: Normocephalic, atraumatic. NECK: Supple. There are no carotid bruits. LUNGS: Clear. CVS: S1 and S2 audible. No murmur. ABDOMEN: Soft and nontender. Bowel sounds present. NEUROLOGIC: Mental status: The patient is awake and alert, oriented to time and place and person. Speech is slightly dysarthric. Naming and repetition are normal. Memory and cognition are intact. Cranial nerve: Pupils are 4 mm bilaterally, reactive to light. Visual ridley are full. Extraocular movements are intact. There is no facial asymmetry. Palate is upgoing bilaterally. Tongue is midline. Motor: Tone is normal. The upper extremities and the lower extremities have decreased tone in the right lower extremity. Plantar's downgoing on the left and equivocal on the right. Gait is untestable. There is mild right upper extremity weakness . LABORATORY DATA: Labs reviewed. MRI of the brain shows no acute intracranial abnormality, no evidence of acute infarction. The patient had MRI of the lumbar spine, which showed no acute fracture. No mild degenerative disk disease, L4-L5 small central disk protrusion, conus medullaris emanated in normal level, and nerve roots of cauda equina are normal. The patient also had MRI of the thoracic spine, which showed no acute pathology and small left paracentral disk protrusion at T6-7. IMPRESSION: Right lower extremity associated with urinary retention and mild right upper extremity weakness. This may have been possible to secondary to a small stroke either in the brainstem or spinal cord. RECOMMENDATIONS: 1. At this point I will also obtain MRI od the cervical spine without contrast. 2. The patient also will have physical therapy for gait balance and strengthening of the right lower extremity. 3. The patient to have speech therapy. 4. Please continue supportive care and the treatment. Thank you for the opportunity to participate in the care of this patient. Lincoln Roberson MD [facility] # [id number]
--- NOTE | 2017-12-11 20:23 | OP ---
PROCEDURE DATE: 12/11/2017 PREOPERATIVE DIAGNOSIS: Possible vocal cord paralysis. POSTOPERATIVE DIAGNOSIS: Possible vocal cord paralysis. PROCEDURE: Flexible laryngoscopy. SIGNIFICANT FINDINGS: Vocal cords were mobile bilaterally. DESCRIPTION OF PROCEDURE: The patient was placed in a seated position. The nose was decongested using Afrin. A flexible laryngoscope was inserted into the nasal cavity and passed the nasopharynx, oropharynx and hypopharynx. The pharyngeal wall, base of tongue, vallecula, epiglottis, AE fold, false cords, arytenoids, true cords and pyriform sinuses were brought into view. Both vocal cords were noted to be mobile bilaterally. No masses, no lesions noted. The scope was removed. The patient tolerated the procedure well. Dougie Trevion MD
[2017-12-11] MEDS: Docusate-Senna 50 mg-8.6 mg Tab PO SCH (21:47)
[2017-12-12] MEDS ORDERED: Barium Sulfate for Susp 96% w/w 176g Bottle PR ONE (09:00)
--- NOTE | 2017-12-12 14:05 | MRI ---
Date of service: 12/11/2017 PROCEDURE: MR CERVICAL SPINE WITHOUT CONTRAST HISTORY: right leg and right arm weakness COMPARISON: None available. TECHNIQUE: Multiecho multiplanar sequences were performed through the cervical spine without the use of intravenous contrast. FINDINGS: Normal lordotic curvature. Craniocervical junction unremarkable. Vertebral body heights preserved. No marrow signal abnormality. Cervical cord signal is unremarkable. Small polyps versus mucous retention cysts noted in the left maxillary sinus. Partially visualized mild mucosal thickening bilateral maxillary sinuses. C2-C3: No significant disc herniation, spinal canal stenosis or neural foraminal stenosis. C3-C4: No significant disc herniation or spinal canal stenosis. Left-sided facet/uncinate hypertrophy produces mild left neural foraminal stenosis. C4-C5: Disc herniation and facet/uncinate hypertrophy produce mild spinal canal stenosis and mild bilateral neural foraminal stenosis. C5-C6: No significant disc herniation or spinal canal stenosis. Left-sided facet/uncinate hypertrophy produces mild left neural foraminal stenosis. C6-C7: No significant disc herniation, spinal canal stenosis or neural foraminal stenosis. C7-T1: No significant disc herniation, spinal canal stenosis or neural foraminal stenosis. OTHER FINDINGS: None. IMPRESSION: Disc herniation at C4-C5 produces mild spinal canal stenosis. Additional findings and details as above.
--- NOTE | 2017-12-12 14:43 | CP.PCM.PN ---
Subjective - Date & Time of Evaluation Date of Evaluation: 12/09/17 Time of Evaluation: 11:00 - Subjective Subjective: Patient remains stable Noted improvement of speech and motor strength of right extremities Doing well with phys therapy Objective - Vital Signs/Intake and Output Vital Signs (last 24 hours): Temp Pulse Resp BP Pulse Ox 97.3 F L 70 22 128/77 96 12/12/17 08:33 12/12/17 08:33 12/12/17 08:33 12/12/17 08:33 12/12/17 08:33 Intake and Output: 12/12/17 12/12/17 06:59 18:59 Intake Total 240 Output Total 1700 Balance -1460 - Medications Medications: Current Medications Acetaminophen (Tylenol 325mg Tab) 650 mg PO Q6 PRN PRN Reason: .Pain (scale 4-10) Last Admin: 12/09/17 10:26 Dose: 650 mg Docusate Sodium (Colace) 100 mg PO BID [facility] Last Admin: 12/12/17 08:47 Dose: 100 mg Famotidine (Pepcid) 20 mg PO DAILY [facility] Last Admin: 12/12/17 08:47 Dose: 20 mg Lactulose (Enulose) 20 gm PO DAILY PRN PRN Reason: Constipation Phenazopyridine HCl (Pyridium) 200 mg PO Q12 [facility] Last Admin: 12/12/17 08:47 Dose: 200 mg Senna/Docusate Sodium (Senokot S 50 Mg-8.6 Mg) 2 tab PO HS [facility] Last Admin: 12/11/17 21:47 Dose: 2 tab - Labs Labs: 12/07/17 05:25 12/08/17 05:25 - Head Exam Head Exam: NORMAL INSPECTION - Eye Exam Eye Exam: Normal appearance - Respiratory Exam Respiratory Exam: Clear to Ausculation Bilateral - Cardiovascular Exam Cardiovascular Exam: REGULAR RHYTHM - GI/Abdominal Exam GI & Abdominal Exam: Normal Bowel Sounds Assessment and Plan (1) Hemiparesis affecting right side as late effect of cerebrovascular accident Status: Acute (2) Aphasia as late effect of cerebrovascular accident Status: Acute (3) Constipation Status: Acute (4) Urinary retention Status: Acute - Assessment and Plan (Free Text) Plan: ont meds Cont tx cont PT speech therapy
--- NOTE | 2017-12-12 14:46 | CP.PCM.PN ---
Subjective - Date & Time of Evaluation Date of Evaluation: 12/10/17 Time of Evaluation: 11:00 - Subjective Subjective: patient was noted to have significant gains Has been doing well Still with speech impediment Struggles a lot on initiation of speech mynor with complicated words. Objective - Vital Signs/Intake and Output Vital Signs (last 24 hours): Temp Pulse Resp BP Pulse Ox 97.3 F L 70 22 128/77 96 12/12/17 08:33 12/12/17 08:33 12/12/17 08:33 12/12/17 08:33 12/12/17 08:33 Intake and Output: 12/12/17 12/12/17 06:59 18:59 Intake Total 240 Output Total 1700 Balance -1460 - Medications Medications: Current Medications Acetaminophen (Tylenol 325mg Tab) 650 mg PO Q6 PRN PRN Reason: .Pain (scale 4-10) Last Admin: 12/09/17 10:26 Dose: 650 mg Docusate Sodium (Colace) 100 mg PO BID [facility] Last Admin: 12/12/17 08:47 Dose: 100 mg Famotidine (Pepcid) 20 mg PO DAILY [facility] Last Admin: 12/12/17 08:47 Dose: 20 mg Lactulose (Enulose) 20 gm PO DAILY PRN PRN Reason: Constipation Phenazopyridine HCl (Pyridium) 200 mg PO Q12 [facility] Last Admin: 12/12/17 08:47 Dose: 200 mg Senna/Docusate Sodium (Senokot S 50 Mg-8.6 Mg) 2 tab PO HS [facility] Last Admin: 12/11/17 21:47 Dose: 2 tab - Labs Labs: 12/07/17 05:25 12/08/17 05:25 - Head Exam Head Exam: NORMAL INSPECTION - Eye Exam Eye Exam: Normal appearance - ENT Exam ENT Exam: Mucous Membranes Moist - Respiratory Exam Respiratory Exam: NORMAL BREATHING PATTERN - Cardiovascular Exam Cardiovascular Exam: REGULAR RHYTHM - Neurological Exam Neurological Exam: Awake, Oriented x3 Assessment and Plan (1) Hemiparesis affecting right side as late effect of cerebrovascular accident Status: Acute (2) Aphasia as late effect of cerebrovascular accident Status: Acute (3) Constipation Status: Acute (4) Urinary retention Status: Acute - Assessment and Plan (Free Text) Plan: Cont meds Discussed with Dr anders and advised to keep oswald cath for now, stool softener. Cont PT
--- NOTE | 2017-12-12 14:49 | CP.PCM.PN ---
Subjective - Date & Time of Evaluation Date of Evaluation: 12/11/17 Time of Evaluation: 11:15 - Subjective Subjective: Patient remains stable Has no chest pain or SOB Afebrile. Objective - Vital Signs/Intake and Output Vital Signs (last 24 hours): Temp Pulse Resp BP Pulse Ox 97.3 F L 70 22 128/77 96 12/12/17 08:33 12/12/17 08:33 12/12/17 08:33 12/12/17 08:33 12/12/17 08:33 Intake and Output: 12/12/17 12/12/17 06:59 18:59 Intake Total 240 Output Total 1700 Balance -1460 - Medications Medications: Current Medications Acetaminophen (Tylenol 325mg Tab) 650 mg PO Q6 PRN PRN Reason: .Pain (scale 4-10) Last Admin: 12/09/17 10:26 Dose: 650 mg Docusate Sodium (Colace) 100 mg PO BID [facility] Last Admin: 12/12/17 08:47 Dose: 100 mg Famotidine (Pepcid) 20 mg PO DAILY [facility] Last Admin: 12/12/17 08:47 Dose: 20 mg Lactulose (Enulose) 20 gm PO DAILY PRN PRN Reason: Constipation Phenazopyridine HCl (Pyridium) 200 mg PO Q12 [facility] Last Admin: 12/12/17 08:47 Dose: 200 mg Senna/Docusate Sodium (Senokot S 50 Mg-8.6 Mg) 2 tab PO HS [facility] Last Admin: 12/11/17 21:47 Dose: 2 tab - Labs Labs: 12/07/17 05:25 12/08/17 05:25 - Head Exam Head Exam: NORMAL INSPECTION - Eye Exam Eye Exam: Normal appearance - Respiratory Exam Respiratory Exam: Clear to Ausculation Bilateral - Cardiovascular Exam Cardiovascular Exam: REGULAR RHYTHM - GI/Abdominal Exam GI & Abdominal Exam: Normal Bowel Sounds Assessment and Plan (1) Hemiparesis affecting right side as late effect of cerebrovascular accident Status: Acute (2) Aphasia as late effect of cerebrovascular accident Status: Acute (3) Constipation Status: Acute (4) Urinary retention Status: Acute - Assessment and Plan (Free Text) Plan: Cont meds Cont tx Cont PT speech therapy
--- NOTE | 2017-12-12 14:53 | CP.PCM.PN ---
Subjective - Date & Time of Evaluation Date of Evaluation: 12/12/17 Time of Evaluation: 13:00 - Subjective Subjective: patient remains stable Has no chest pain or SOB Still with problems with speech Noted improvement of right hemiparesis. Objective - Vital Signs/Intake and Output Vital Signs (last 24 hours): Temp Pulse Resp BP Pulse Ox 97.3 F L 70 22 128/77 96 12/12/17 08:33 12/12/17 08:33 12/12/17 08:33 12/12/17 08:33 12/12/17 08:33 Intake and Output: 12/12/17 12/12/17 06:59 18:59 Intake Total 240 Output Total 1700 Balance -1460 - Medications Medications: Current Medications Acetaminophen (Tylenol 325mg Tab) 650 mg PO Q6 PRN PRN Reason: .Pain (scale 4-10) Last Admin: 12/09/17 10:26 Dose: 650 mg Docusate Sodium (Colace) 100 mg PO BID [facility] Last Admin: 12/12/17 08:47 Dose: 100 mg Famotidine (Pepcid) 20 mg PO DAILY [facility] Last Admin: 12/12/17 08:47 Dose: 20 mg Lactulose (Enulose) 20 gm PO DAILY PRN PRN Reason: Constipation Phenazopyridine HCl (Pyridium) 200 mg PO Q12 [facility] Last Admin: 12/12/17 08:47 Dose: 200 mg Senna/Docusate Sodium (Senokot S 50 Mg-8.6 Mg) 2 tab PO HS [facility] Last Admin: 12/11/17 21:47 Dose: 2 tab - Labs Labs: 12/07/17 05:25 12/08/17 05:25 - Head Exam Head Exam: NORMAL INSPECTION - Eye Exam Eye Exam: Normal appearance - ENT Exam ENT Exam: Mucous Membranes Moist - Respiratory Exam Respiratory Exam: Clear to Ausculation Bilateral - Cardiovascular Exam Cardiovascular Exam: REGULAR RHYTHM - GI/Abdominal Exam GI & Abdominal Exam: Normal Bowel Sounds Assessment and Plan (1) Hemiparesis affecting right side as late effect of cerebrovascular accident Status: Acute (2) Aphasia as late effect of cerebrovascular accident Status: Acute (3) Constipation Status: Acute (4) Urinary retention Status: Acute - Assessment and Plan (Free Text) Plan: Cont meds Con ttx Cont meds stool softener keep oswald cath on.
--- NOTE | 2017-12-12 20:31 | CP.PCM.PN ---
Subjective - Date & Time of Evaluation Date of Evaluation: 12/12/17 Time of Evaluation: 15:15 - Subjective Subjective: no acute complaints of pain Objective - Vital Signs/Intake and Output Vital Signs (last 24 hours): Temp Pulse Resp BP Pulse Ox 97.3 F L 73 22 128/77 96 12/12/17 08:33 12/12/17 08:44 12/12/17 08:33 12/12/17 08:33 12/12/17 08:33 Intake and Output: 12/12/17 12/13/17 18:59 06:59 Output Total 880 Balance -880 - Medications Medications: Current Medications Acetaminophen (Tylenol 325mg Tab) 650 mg PO Q6 PRN PRN Reason: .Pain (scale 4-10) Last Admin: 12/09/17 10:26 Dose: 650 mg Docusate Sodium (Colace) 100 mg PO BID [facility] Last Admin: 12/12/17 16:41 Dose: 100 mg Famotidine (Pepcid) 20 mg PO DAILY [facility] Last Admin: 12/12/17 08:47 Dose: 20 mg Lactulose (Enulose) 20 gm PO DAILY PRN PRN Reason: Constipation Last Admin: 12/12/17 16:42 Dose: 20 gm Phenazopyridine HCl (Pyridium) 200 mg PO Q12 [facility] Last Admin: 12/12/17 08:47 Dose: 200 mg Senna/Docusate Sodium (Senokot S 50 Mg-8.6 Mg) 2 tab PO HS [facility] Last Admin: 12/11/17 21:47 Dose: 2 tab - Labs Labs: 12/07/17 05:25 12/08/17 05:25 - Head Exam Head Exam: ATRAUMATIC, NORMAL INSPECTION, NORMOCEPHALIC - Eye Exam Eye Exam: EOMI, Normal appearance Pupil Exam: NORMAL ACCOMODATION, PERRL - ENT Exam ENT Exam: Mucous Membranes Moist, Normal Exam - Neck Exam Neck Exam: Full ROM - Respiratory Exam Respiratory Exam: Clear to Ausculation Bilateral, NORMAL BREATHING PATTERN - Cardiovascular Exam Cardiovascular Exam: REGULAR RHYTHM - GI/Abdominal Exam GI & Abdominal Exam: Normal Bowel Sounds - Rectal Exam Rectal Exam: NORMAL INSPECTION - Exam External exam: NORMAL EXTERNAL EXAM - Extremities Exam Extremities Exam: Full ROM, Normal Inspection - Back Exam Back Exam: NORMAL INSPECTION - Neurological Exam Neurological Exam: Alert, Awake Neuro motor strength exam: Right Upper Extremity: 3, Right Lower Extremity: 3 - Psychiatric Exam Psychiatric exam: Normal Affect - Skin Skin Exam: Normal Color Assessment and Plan (1) Abdominal pain Status: Acute (2) Fever Status: Acute (3) Hand pain Status: Acute (4) Headache Status: Acute (5) Prophylactic measure Status: Acute (6) Scabies Status: Acute (7) Subungual hematoma Status: Acute - Assessment and Plan (Free Text) Assessment: plan for physical, occupational, rec therapy program, discussed patinet with Dr Roberson, covering for Dr Darling
[2017-12-12] MEDS: Docusate-Senna 50 mg-8.6 mg Tab PO SCH (21:51)
[2017-12-13] MEDS: Pantoprazole 40 mg EC Tab PO SCH (12:26)
[2017-12-13] MEDS: Alum-Mag Hydrox-Simethicone Susp (30 mL) PO PRN ×2 (12:26→20:47)
--- NOTE | 2017-12-13 14:55 | CP.PCM.PN ---
Subjective - Date & Time of Evaluation Date of Evaluation: 12/13/17 Time of Evaluation: 10:30 - Subjective Subjective: patient complaining of constipation Objective - Vital Signs/Intake and Output Vital Signs (last 24 hours): Temp Pulse Resp BP Pulse Ox 97.5 F L 65 18 117/73 95 12/13/17 08:23 12/13/17 08:23 12/13/17 08:23 12/13/17 08:23 12/13/17 08:23 Intake and Output: 12/13/17 12/13/17 06:59 18:59 Intake Total 240 Balance 240 - Medications Medications: Current Medications Acetaminophen (Tylenol 325mg Tab) 650 mg PO Q6 PRN PRN Reason: .Pain (scale 4-10) Last Admin: 12/09/17 10:26 Dose: 650 mg Al Hydrox/Mg Hydrox/Simethicone (Maalox Plus 30 Ml) 30 ml PO Q4 PRN PRN Reason: Indigestion / Heartburn Last Admin: 12/13/17 12:26 Dose: 30 ml Docusate Sodium (Colace) 100 mg PO BID [facility] Last Admin: 12/13/17 08:20 Dose: 100 mg Lactulose (Enulose) 20 gm PO DAILY PRN PRN Reason: Constipation Last Admin: 12/13/17 08:20 Dose: 20 gm Lactulose (Enulose) 20 gm PO Q12 PRN PRN Reason: Constipation Pantoprazole Sodium (Protonix Ec Tab) 40 mg PO DAILY [facility] Last Admin: 12/13/17 12:26 Dose: 40 mg Phenazopyridine HCl (Pyridium) 200 mg PO Q12 [facility] Last Admin: 12/13/17 08:20 Dose: 200 mg Senna/Docusate Sodium (Senokot S 50 Mg-8.6 Mg) 2 tab PO HS [facility] Last Admin: 12/12/17 21:51 Dose: 2 tab - Labs Labs: 12/07/17 05:25 12/08/17 05:25 - Head Exam Head Exam: ATRAUMATIC, NORMAL INSPECTION, NORMOCEPHALIC - Eye Exam Eye Exam: EOMI, Normal appearance, PERRL Pupil Exam: NORMAL ACCOMODATION - ENT Exam ENT Exam: Mucous Membranes Moist, Normal Exam - Neck Exam Neck Exam: Full ROM, Normal Inspection - Respiratory Exam Respiratory Exam: NORMAL BREATHING PATTERN - Cardiovascular Exam Cardiovascular Exam: REGULAR RHYTHM - GI/Abdominal Exam GI & Abdominal Exam: Soft, Normal Bowel Sounds - Rectal Exam Rectal Exam: NORMAL INSPECTION - Exam External exam: NORMAL EXTERNAL EXAM - Extremities Exam Extremities Exam: Full ROM, Normal Capillary Refill, Normal Inspection - Back Exam Back Exam: NORMAL INSPECTION - Neurological Exam Neurological Exam: Alert, Awake Neuro motor strength exam: Left Upper Extremity: 2/, Left Lower Extremity: 2/ - Psychiatric Exam Psychiatric exam: Normal Affect, Normal Mood - Skin Skin Exam: Dry, Intact, Normal Color Assessment and Plan (1) Abdominal pain Status: Acute (2) Fever Status: Acute (3) Hand pain Status: Acute (4) Headache Status: Acute (5) Prophylactic measure Status: Acute (6) Scabies Status: Acute (7) Subungual hematoma Status: Acute - Assessment and Plan (Free Text) Assessment: plan for physical, occupational and rec therapy apparently he had BM today still still feels bloated get a flat plate abdomen Xray
--- NOTE | 2017-12-13 15:38 | RAD ---
Date of service: 12/12/2017 PROCEDURE: Modified barium swallow study. HISTORY: speech eval and tx COMPARISON: None available. TECHNIQUE: Under fluoroscopic guidance, barium meals of various consistency were administered to the patient by the speech pathologist. 100.1 sec of fluoroscopy time was utilized with a cumulative radiation dose of 6.81 mGy. FINDINGS: Normal apparent oral motor phase. No penetration or aspiration was observed during this study through various ingestion of thick and thin to solid food barium mixtures. IMPRESSION: No penetration or aspiration observed. Please refer to the detailed report and recommendations of the speech pathologist.
--- NOTE | 2017-12-13 16:17 | RAD ---
Date of service: 12/13/2017 HISTORY: constipation COMPARISON: None available. FINDINGS: BOWEL: Moderate to severe diffuse constipation. Oral contrast is noted throughout the colon presumably related to imaging. Pelvic calcification, likely phlebolith. BONES: No acute osseous abnormality is detected. OTHER FINDINGS: None. IMPRESSION: Moderate to severe diffuse constipation.
[2017-12-13] MEDS: Docusate-Senna 50 mg-8.6 mg Tab PO SCH (21:58)
[2017-12-14] MEDS ORDERED: Simethicone 40 mg/0.6 ml Liquid (30 ml) PO PRN (01:20)
[2017-12-14] MEDS: Simethicone 80 mg Chewtab PO PRN (01:51)
[2017-12-14] MEDS: Pantoprazole 40 mg EC Tab PO SCH (08:16)
[2017-12-14] MEDS ORDERED: Iohexol 240 (50 ml) PO ONE (10:51)
[2017-12-14] MEDS ORDERED: Sodium Chloride 0.9% 100 ML ONE (13:39)
[2017-12-14] MEDS ORDERED: Iohexol 300 100 ML IJ ONE (13:39)
--- NOTE | 2017-12-14 14:37 | CT ---
Date of service: 12/14/2017 PROCEDURE: CT Abdomen and Pelvis with contrast HISTORY: SEVERE CONSTIPATION COMPARISON: CT scan of the abdomen and pelvis dated 10/11/2017 TECHNIQUE: Contrast dose: 98 mL Omnipaque 300 Radiation dose: Total exam DLP = 991.8 mGy-cm. This CT exam was performed using one or more of the following dose reduction techniques: Automated exposure control, adjustment of the mA and/or kV according to patient size, and/or use of iterative reconstruction technique. FINDINGS: LOWER THORAX: Unremarkable. LIVER: Diffuse hepatic steatosis. No gross lesion or ductal dilatation. GALLBLADDER AND BILE DUCTS: Unremarkable. PANCREAS: Unremarkable. No gross lesion or ductal dilatation. SPLEEN: Unremarkable. ADRENALS: Unremarkable. No mass. KIDNEYS AND URETERS: Unremarkable. No hydronephrosis. No solid mass. VASCULATURE: Unremarkable. No aortic aneurysm. No aortic atherosclerotic calcification or mural plaque present. BOWEL: Unremarkable. No obstruction. No gross mural thickening. APPENDIX: Normal appendix. PERITONEUM: Unremarkable. No free fluid. No free air. LYMPH NODES: Unremarkable. No enlarged lymph nodes. BLADDER: Catheter within the bladder. REPRODUCTIVE: Unremarkable. BONES: No acute fracture. OTHER FINDINGS: None. IMPRESSION: No acute abdominal pelvic pathology. Prominent amount of retained colonic stool.
[2017-12-14] MEDS ORDERED: Magnesium Citrate Oral SOL (300 ml) PO ONE (16:29)
[2017-12-14] MEDS: POLYETHYLENE GLYCOL 3350 17 GM/Dose PACKET PO SCH (21:34)
[2017-12-15] MEDS: Simethicone 80 mg Chewtab PO PRN ×2 (02:33→11:34)
[2017-12-15] MEDS: Pantoprazole 40 mg EC Tab PO SCH (08:20)
--- NOTE | 2017-12-15 13:57 | PN ---
DATE: 12/15/2017 SUBJECTIVE: The patient is sitting on the chair, in no acute distress. Denies any headache or dizziness. Denies to have any new complaints. PHYSICAL EXAMINATION: VITAL SIGNS: His blood pressure is 118/79, heart rate is 72 per minute, breathing at the rate of 16 per minute, temperature 97.9 degrees Fahrenheit. HEENT: Normocephalic, atraumatic. NECK: Supple. There are no carotid bruits. LUNGS: Clear. CARDIOVASCULAR SYSTEM: S1 and S2 audible. No murmurs. ABDOMEN: Soft, nontender. Bowel sounds are present. NEUROLOGY EXAMINATION: Mental status: The patient is awake and alert, oriented to time, place, and person. Speech is slightly dysarthric. Naming is good. Cranial nerve examination: Pupils are 4 mm bilaterally, reactive to light. Visual ridley are full. Extraocular movements are intact. There is no facial asymmetry. Palate is upgoing bilaterally. Tongue is midline. Motor examination: Tone is normal. Power in the upper extremities on the left is 5/5, on the right is 4/5. Power in the left lower extremity is 5/5 and the right lower extremity is 0-1/5. Gait is untestable at this moment. LABORATORY DATA: Labs reviewed. MRI of the cervical spine, disc herniation at C4-C5 produces mild spinal canal stenosis. Cervical cord stenosis, unremarkable. IMPRESSION: Right lower extremity associated with urinary retention and mild dysarthria. It appears that these symptoms are likely secondary to either high spinal cord or lower brainstem pathology, possibly a small stroke, which is not visible on MRI. RECOMMENDATIONS: 1. The patient to have aggressive physical therapy. 2. The patient also to have speech therapy. 3. Since it is possible that this may have been secondary to a very, very small infarct, I would put him on baby aspirin 81 mg once a day. 4. Please continue supportive care and the treatment. Thank you for the opportunity to participate in the care of this patient. Lincoln Roberson MD
[2017-12-15] MEDS: POLYETHYLENE GLYCOL 3350 17 GM/Dose PACKET PO SCH (21:56)
--- NOTE | 2017-12-16 08:02 | CP.PCM.PN ---
Subjective - Date & Time of Evaluation Date of Evaluation: 12/13/17 Time of Evaluation: 10:00 - Subjective Subjective: Patient continues to be stable Has problems with constipation Still on oswald cath. Objective - Vital Signs/Intake and Output Vital Signs (last 24 hours): Temp Pulse Resp BP Pulse Ox 97.7 F 78 20 118/71 99 12/15/17 20:48 12/15/17 20:48 12/15/17 20:48 12/15/17 20:48 12/15/17 20:48 Intake and Output: 12/16/17 12/16/17 06:59 18:59 Intake Total 240 Output Total 1200 Balance -960 - Medications Medications: Current Medications Acetaminophen (Tylenol 325mg Tab) 650 mg PO Q6 PRN PRN Reason: .Pain (scale 4-10) Last Admin: 12/15/17 13:23 Dose: 650 mg Aspirin (Aspirin Chewable) 81 mg PO DAILY [facility] Last Admin: 12/15/17 11:34 Dose: 81 mg Docusate Sodium (Colace) 100 mg PO BID [facility] Last Admin: 12/15/17 17:06 Dose: 100 mg Lactulose (Enulose) 20 gm PO Q12 [facility] Last Admin: 12/15/17 21:56 Dose: 20 gm Pantoprazole Sodium (Protonix Ec Tab) 40 mg PO DAILY [facility] Last Admin: 12/15/17 08:20 Dose: 40 mg Phenazopyridine HCl (Pyridium) 200 mg PO Q12 [facility] Last Admin: 12/15/17 21:55 Dose: 200 mg Polyethylene Glycol (Miralax) 17 gm PO HS [facility] Last Admin: 12/15/17 21:56 Dose: 17 gm Simethicone (Mylicon Chew Tab) 80 mg PO Q8 PRN PRN Reason: Flatulence Last Admin: 12/15/17 11:34 Dose: 80 mg - Labs Labs: 12/07/17 05:25 12/08/17 05:25 - Head Exam Head Exam: NORMAL INSPECTION - Eye Exam Eye Exam: Normal appearance - ENT Exam ENT Exam: Mucous Membranes Moist - Respiratory Exam Respiratory Exam: Clear to Ausculation Bilateral - Cardiovascular Exam Cardiovascular Exam: REGULAR RHYTHM - GI/Abdominal Exam GI & Abdominal Exam: Normal Bowel Sounds - Neurological Exam Neurological Exam: Oriented x3 Assessment and Plan (1) Hemiparesis affecting right side as late effect of cerebrovascular accident Status: Acute (2) Aphasia as late effect of cerebrovascular accident Status: Acute (3) Constipation Status: Acute (4) Urinary retention Status: Acute - Assessment and Plan (Free Text) Plan: Cont meds Cont tx Cont PT stool softener recheck abd xrays
--- NOTE | 2017-12-16 08:06 | CP.PCM.PN ---
Subjective - Date & Time of Evaluation Date of Evaluation: 12/14/17 Time of Evaluation: 18:00 - Subjective Subjective: patient remains stable Still with constipation Has no vomiting Has no fever. Objective - Vital Signs/Intake and Output Vital Signs (last 24 hours): Temp Pulse Resp BP Pulse Ox 97.7 F 78 20 118/71 99 12/15/17 20:48 12/15/17 20:48 12/15/17 20:48 12/15/17 20:48 12/15/17 20:48 Intake and Output: 12/16/17 12/16/17 06:59 18:59 Intake Total 240 Output Total 1200 Balance -960 - Medications Medications: Current Medications Acetaminophen (Tylenol 325mg Tab) 650 mg PO Q6 PRN PRN Reason: .Pain (scale 4-10) Last Admin: 12/15/17 13:23 Dose: 650 mg Aspirin (Aspirin Chewable) 81 mg PO DAILY [facility] Last Admin: 12/15/17 11:34 Dose: 81 mg Docusate Sodium (Colace) 100 mg PO BID [facility] Last Admin: 12/15/17 17:06 Dose: 100 mg Lactulose (Enulose) 20 gm PO Q12 [facility] Last Admin: 12/15/17 21:56 Dose: 20 gm Pantoprazole Sodium (Protonix Ec Tab) 40 mg PO DAILY [facility] Last Admin: 12/15/17 08:20 Dose: 40 mg Phenazopyridine HCl (Pyridium) 200 mg PO Q12 [facility] Last Admin: 12/15/17 21:55 Dose: 200 mg Polyethylene Glycol (Miralax) 17 gm PO HS [facility] Last Admin: 12/15/17 21:56 Dose: 17 gm Simethicone (Mylicon Chew Tab) 80 mg PO Q8 PRN PRN Reason: Flatulence Last Admin: 12/15/17 11:34 Dose: 80 mg - Labs Labs: 12/07/17 05:25 12/08/17 05:25 - Head Exam Head Exam: NORMAL INSPECTION - Eye Exam Eye Exam: Normal appearance - ENT Exam ENT Exam: Mucous Membranes Moist - Respiratory Exam Respiratory Exam: Clear to Ausculation Bilateral - Cardiovascular Exam Cardiovascular Exam: REGULAR RHYTHM - GI/Abdominal Exam GI & Abdominal Exam: Normal Bowel Sounds Assessment and Plan (1) Hemiparesis affecting right side as late effect of cerebrovascular accident Status: Acute (2) Aphasia as late effect of cerebrovascular accident Status: Acute (3) Constipation Status: Acute (4) Urinary retention Status: Acute - Assessment and Plan (Free Text) Plan: Cont meds Cont tx Cont PT check xray abdomen.
--- NOTE | 2017-12-16 08:10 | CP.PCM.PN ---
Subjective - Date & Time of Evaluation Date of Evaluation: 12/15/17 Time of Evaluation: 18:20 - Subjective Subjective: Patient remains stable Has no chest pain or SOB Afebrile. Objective - Vital Signs/Intake and Output Vital Signs (last 24 hours): Temp Pulse Resp BP Pulse Ox 97.7 F 78 20 118/71 99 12/15/17 20:48 12/15/17 20:48 12/15/17 20:48 12/15/17 20:48 12/15/17 20:48 Intake and Output: 12/16/17 12/16/17 06:59 18:59 Intake Total 240 Output Total 1200 Balance -960 - Medications Medications: Current Medications Acetaminophen (Tylenol 325mg Tab) 650 mg PO Q6 PRN PRN Reason: .Pain (scale 4-10) Last Admin: 12/15/17 13:23 Dose: 650 mg Aspirin (Aspirin Chewable) 81 mg PO DAILY [facility] Last Admin: 12/15/17 11:34 Dose: 81 mg Docusate Sodium (Colace) 100 mg PO BID [facility] Last Admin: 12/15/17 17:06 Dose: 100 mg Lactulose (Enulose) 20 gm PO Q12 [facility] Last Admin: 12/15/17 21:56 Dose: 20 gm Pantoprazole Sodium (Protonix Ec Tab) 40 mg PO DAILY [facility] Last Admin: 12/15/17 08:20 Dose: 40 mg Phenazopyridine HCl (Pyridium) 200 mg PO Q12 [facility] Last Admin: 12/15/17 21:55 Dose: 200 mg Polyethylene Glycol (Miralax) 17 gm PO HS [facility] Last Admin: 12/15/17 21:56 Dose: 17 gm Simethicone (Mylicon Chew Tab) 80 mg PO Q8 PRN PRN Reason: Flatulence Last Admin: 12/15/17 11:34 Dose: 80 mg - Labs Labs: 12/07/17 05:25 12/08/17 05:25 - Head Exam Head Exam: NORMAL INSPECTION - Eye Exam Eye Exam: Normal appearance - Respiratory Exam Respiratory Exam: Clear to Ausculation Bilateral - Cardiovascular Exam Cardiovascular Exam: REGULAR RHYTHM - GI/Abdominal Exam GI & Abdominal Exam: Normal Bowel Sounds Assessment and Plan (1) Hemiparesis affecting right side as late effect of cerebrovascular accident Status: Acute (2) Aphasia as late effect of cerebrovascular accident Status: Acute (3) Constipation Status: Acute (4) Urinary retention Status: Acute - Assessment and Plan (Free Text) Plan: Cont meds Cont tx Xray abdomen.
[2017-12-16] MEDS: Pantoprazole 40 mg EC Tab PO SCH (08:36)
--- NOTE | 2017-12-16 15:50 | RAD ---
Date of service: 12/16/2017 HISTORY: constipation COMPARISON: 12/13/2017 abdominal series. 12/14/2017 CT abdomen and pelvis. FINDINGS: BOWEL: Constipation without fecal impaction or obstruction. BONES: Normal. OTHER FINDINGS: None. IMPRESSION: Constipation without mechanical obstruction or impaction. Similar findings identified on recent prior studies.
[2017-12-17] MEDS: Simethicone 80 mg Chewtab PO PRN ×2 (00:46→08:31)
[2017-12-17] MEDS: Pantoprazole 40 mg EC Tab PO SCH (08:32)
--- NOTE | 2017-12-17 09:17 | CON ---
DATE: 12/16/2017 REFERRING PHYSICIAN: REASON FOR CONSULTATION: Constipation. HISTORY OF PRESENT ILLNESS: This is a pleasant 32-year-old man with history of urinary retention. He had possible hernia repair that was complicated with vocal paralysis and urinary retention, is having constipation, actually did better Nausea and vomiting improved with Currently lying in bed comfortable, in no apparent distress. PAST MEDICAL HISTORY: As above. PAST SURGICAL HISTORY: As above. MEDICATIONS: Have been reviewed. REVIEW OF SYSTEMS: All other systems have been reviewed and negative apart from the HPI. PHYSICAL EXAMINATION: VITAL SIGNS: Here in the hospital, grossly unremarkable. GENERAL: This is a pleasant young man, lying in bed comfortably, in no apparent distress. HEENT: Head is normocephalic and atraumatic. Eyes, pupils are equally reactive to light bilaterally. No conjunctival pallor or icterus. NECK: Supple. Normal range of motion. No lymphadenopathy appreciated. LUNGS: Coarse breath sounds bilaterally. HEART: S1 and S2, regular rate and rhythm. No murmurs appreciated. ABDOMEN: Soft. Discomfort in the right lower quadrant. No rebound. No guarding. RECTAL: Deferred. EXTREMITIES: Pulses felt bilaterally. SKIN: Warm, dry, and intact. NEUROLOGIC: A and O x3. LABORATORY DATA: All labs and radiology have been reviewed. CAT scan shows . ASSESSMENT AND PLAN: This is a pleasant 32-year-old man with history of constipation. Aggressive oral laxatives. Follow up with me . Thank you for the consult. Cheng Morton MD/ PhD cc:
[2017-12-17] MEDS ORDERED: Magnesium Citrate Oral SOL (300 ml) PO ONE (09:59)
--- NOTE | 2017-12-17 09:59 | CP.PCM.PN ---
Subjective - Date & Time of Evaluation Date of Evaluation: 12/17/17 Time of Evaluation: 09:59 - Subjective Subjective: no overnight events Objective - Vital Signs/Intake and Output Vital Signs (last 24 hours): Temp Pulse Resp BP Pulse Ox 98.8 F 87 22 119/61 98 12/17/17 08:32 12/17/17 08:32 12/17/17 08:32 12/17/17 08:32 12/17/17 08:32 Intake and Output: 12/17/17 12/17/17 06:59 18:59 Intake Total 300 Output Total 1500 Balance -1200 - Medications Medications: Current Medications Acetaminophen (Tylenol 325mg Tab) 650 mg PO Q6 PRN PRN Reason: .Pain (scale 4-10) Last Admin: 12/15/17 13:23 Dose: 650 mg Aspirin (Aspirin Chewable) 81 mg PO DAILY [facility] Last Admin: 12/17/17 08:32 Dose: 81 mg Docusate Sodium (Colace) 100 mg PO BID [facility] Last Admin: 12/17/17 08:32 Dose: 100 mg Lactulose (Enulose) 20 gm PO Q8 [facility] Last Admin: 12/17/17 06:25 Dose: 20 gm Pantoprazole Sodium (Protonix Ec Tab) 40 mg PO DAILY [facility] Last Admin: 12/17/17 08:32 Dose: 40 mg Phenazopyridine HCl (Pyridium) 200 mg PO Q12 [facility] Last Admin: 12/17/17 08:31 Dose: 200 mg Simethicone (Mylicon Chew Tab) 80 mg PO Q8 PRN PRN Reason: Flatulence Last Admin: 12/17/17 08:31 Dose: 80 mg - Labs Labs: 12/07/17 05:25 12/08/17 05:25 - Head Exam Head Exam: NORMOCEPHALIC - Neck Exam Neck Exam: Normal Inspection - Respiratory Exam Respiratory Exam: Clear to Ausculation Bilateral, NORMAL BREATHING PATTERN - Cardiovascular Exam Cardiovascular Exam: REGULAR RHYTHM - GI/Abdominal Exam GI & Abdominal Exam: Soft, Normal Bowel Sounds Assessment and Plan - Assessment and Plan (Free Text) Assessment: 32 yo male with constipation mag citrate encourage OOB
--- NOTE | 2017-12-17 13:05 | CP.PCM.PN ---
Subjective - Date & Time of Evaluation Date of Evaluation: 12/17/17 Time of Evaluation: 11:00 - Subjective Subjective: patient seen and examined. patient states doing well though still with constipation. seen by GI this morning. tolerating PO well. denies pain. participating in PT and OT. Objective - Vital Signs/Intake and Output Vital Signs (last 24 hours): Temp Pulse Resp BP Pulse Ox 98.8 F 87 20 119/61 98 12/17/17 09:00 12/17/17 09:00 12/17/17 09:00 12/17/17 09:00 12/17/17 08:32 Intake and Output: 12/17/17 12/17/17 06:59 18:59 Intake Total 300 Output Total 1500 Balance -1200 - Medications Medications: Current Medications Acetaminophen (Tylenol 325mg Tab) 650 mg PO Q6 PRN PRN Reason: .Pain (scale 4-10) Last Admin: 12/15/17 13:23 Dose: 650 mg Aspirin (Aspirin Chewable) 81 mg PO DAILY [facility] Last Admin: 12/17/17 08:32 Dose: 81 mg Docusate Sodium (Colace) 100 mg PO BID [facility] Last Admin: 12/17/17 08:32 Dose: 100 mg Lactulose (Enulose) 20 gm PO Q8 [facility] Last Admin: 12/17/17 06:25 Dose: 20 gm Pantoprazole Sodium (Protonix Ec Tab) 40 mg PO DAILY [facility] Last Admin: 12/17/17 08:32 Dose: 40 mg Phenazopyridine HCl (Pyridium) 200 mg PO Q12 [facility] Last Admin: 12/17/17 08:31 Dose: 200 mg Simethicone (Mylicon Chew Tab) 80 mg PO Q8 PRN PRN Reason: Flatulence Last Admin: 12/17/17 08:31 Dose: 80 mg - Labs Labs: 12/07/17 05:25 12/08/17 05:25 - Constitutional Appears: Non-toxic, No Acute Distress - Head Exam Head Exam: NORMAL INSPECTION - Eye Exam Eye Exam: Normal appearance - Respiratory Exam Respiratory Exam: Clear to Ausculation Bilateral, NORMAL BREATHING PATTERN - Cardiovascular Exam Cardiovascular Exam: REGULAR RHYTHM, +S1, +S2 - GI/Abdominal Exam GI & Abdominal Exam: Soft, Normal Bowel Sounds - Extremities Exam Extremities Exam: Normal Inspection - Neurological Exam Neurological Exam: Alert, Awake, Oriented x3 - Psychiatric Exam Psychiatric exam: Normal Affect, Normal Mood - Skin Skin Exam: Normal Color, Warm Assessment and Plan - Assessment and Plan (Free Text) Assessment: 32 y/o male admitted for acute rehab after he develop speech and swallowing difficulty and right sided hemiparesis while in the recovery after a left inguinal hernia repair. now with constipation GI following mag citrate and OOB recommendations will consult surgery to follow care after IH repair in [place] Name c/w PT/OT
--- NOTE | 2017-12-17 13:26 | PCM.PSYTMC ---
Acute Rehab Team Conference - - Vital Signs: Vital Signs (Last 8 Hours): Vital Signs 12/17/17 12/17/17 08:32 09:00 Temperature 98.8 F 98.8 F Pulse Rate 87 87 Respiratory 22 20 Rate Blood Pressure 119/61 119/61 O2 Sat by Pulse 98 Oximetry Pain: 0 - Precautions: Precautions: Fall Prevention - Medications/Other Issues: Comment: No further BM since BM at 1230am yesterday. Repeat abdomen flat plate done: (+) Constipation , no impaction or obstruction. Lactulose increased to TID. - Consults: Comment: Dr. Darling, Dr. Morton, Dr. Roberson, Dr. Dalal - Toileting: Toileting: Minimal Assistance - Bladder Management: Bladder Pattern: Retention Voiding Method: Indwelling Catheter Bladder Management: Dependent Other Intervention:: 0 - Transfers: Transfers: Moderate Assistance - ADL's: ADL's: Moderate Assistance - Pain Management: Other Intervention:: no pain - Patient/Family Teaching: Other Intervention:: Fall prevention, Constipation management - Goals/Time Frame: Comment: Per multidisciplinary care plan and goals - Provider: Registered Nurse:: Margo Crouch Physical Therapy - Bed Mobility Bed Mobility: Contact Guard, Minimal Assistance - Transfers Wheelchair to Mat: Minimal Assistance Sit to Stand: Contact Guard - Ambulation Level of Assistance: Contact Guard, Moderate Assistance Distance (ft.): 150 Assistive Devices: Crutches, Rolling Walker Orthoses: R df assist LINH wrap Comment: -CGA for overall balance, mod/max A for RLE advancement/placement - Stair Negotiation Stairs: Level of Assistance: Minimal Assistance, Moderate Assistance Number of Stairs: 6 Handrails: Right Stairs: Assistive Devices: Right Handrail, Crutches - Standing Balance Static Stand: Contact Guard Assist - Pain Comment: stomach, catheter site - Insight/Carryover Insight/Carryover: Good - Patient/Family Education Comment: safety, POC - Assessment/Plan Assessment: 90 minute PT tx session focusing on BLE Strengthening exercises, balance and endurance activities, and functional mobility training. Trialed ambulation with axillary crutches , continues to require mod/max A to advance RLE . Pt will continue to benefit from skilled PT interventions to address deficits, reduce fall risk, and maximize functional independence. - Goals Tiimeframe: 2 weeks Goals: Sit < > supine mod I. Sit < > stand transfers mod I. Pt will ambulate 200 ft with axillary crutches and supervision. Pt will ascend/descend flight of stairs with handrail and CGA - Provider Physical Therapist:: Florence Constantino License Number:: [id number] Occupational Therapy - Arousal/Attention/Orientation Level of Consciousness: Awake, Alert - ADL/IADL Self Feeding: Set-up Help Grooming: Set-up Help Dressing-Upper Ext: Supervision Homemaking: Minimal Assistance, Moderate Assistance - Sitting Balance Static Sitting: Supervision Dynamic Sitting: Requires supervision, Contact Guard Assist - Transfers Wheelchair to Bed Transfers: Contact Guard Toilet Transfers: Contact Guard - Wheelchair Management Level of Assistance: Supervision - Upper Extremity Status Right Upper Extremity Comment: Gross MMT: 3+/5 Left Upper Extremity Comment: Gross MMT: 4+/5 - Pain Pain (assessed during therapy session): 0 - Insight/Carryover Insight/Carryover: Good - Patient/Family Education Comment: Pt educated LE dressing using AE. Pt able to carryover info. Will require furthur practice. - Assessment/Plan Assessment: Pt demonstrates increased Ind with UE/LE dressing using AE as well as functional transfers. However, pt continues to present with significant weakness and motor control on RUE/RLE. Pt also with medical complexity impeding him with ADLS: urinal bag, stomach pain from constipation and gas. Pt requires extensive OT to maximize ADL function for safe DC. - Goals Timeframe: 10 days - Provider Occupational Therapist:: Doreen Matias License Number: [id number] Speech Therapy - Consult Information Patient on Program: Yes Medical Diagnosis: gait dysfunction Treatment Diagnosis: -mild speech-fluency deficits. -minimal pharyngeal dysphagia - Assessment Speech/Articulation Impairment: Mild Dysphagia/Swallowing Impairment: Mild - Plan Assessment: Carlito Patel presents 1.) minimal pharyngeal dysphagia (per MBS completed 12/12/17) characterized by intermittent mildly impaired UES opening resulting in one episode of very mild residue at the level of the UES, though this cleared with multiple swallows; there was no laryngeal penetration or aspiration in this study; pt with c/o laryngeal/pharyngeal discomfort and globus sensation both during and following completion of the study despite visualization of pharynx cleared of any residuals; pt's dite has been advanced to mechanical soft bite-sized solids/thin liquids; and 2.) mild dysarthria/fluency deficits characterized by slow, intermittently effortful speech production with periods of slight pauses and phoneme prolongations. Pt with good participation in all tx tasks; he is highly motivated to improve and would benefit from continued speech and dysphagia tx 3-5x/week for improved verbal expression, swallow function, and ability to tolerate advanced consistencies for adequate nutrition/hydration via PO means. Pt may also benefit from GI consult if globus sensation symptoms do not resolve to r/o esophageal abnormalities as etiology of pt's symptoms. Plan: Continue Dysphagia Therapy, Continue Speech/Language Therapy Frequency: 3-5 times per week Duration: 1 week Goals/Timeframe: Please see progress note dated 12/16/17 for updated goals/POC Recommendations: -Continue speech and dysphagia tx 3-5x/week. -Bite-sized solids/thin liquids - Provider Therapist: Mary Riley License Number: [id number] Recreational Therapy - Participation Participation: Participates in Individual and/or Group Sessions - Attendance Attendance: 3-5 times per week - Activities Leisure Activities: Cards and Games - Socialization Level of Socialization: Initiates/interacts freely with care givers and peer - Diversional Time Diversional Time: cards, dominoes, enjoys being active - Assessment Assessment/Plan: Pt is agreeable to participate in 1:1 and group recreation therapy sessions. Pt is oriented to skip-gagan card task, painting, and other leisure tasks utilizing both hands. Pt is mod I with leisure tasks following orientation and setup to new leisure tasks. Pt demonstrates improved arousal level and attention to task. Pt's participation and mood state is limited by pain or discomfort at times. Pt will continue to benefit from participating in recreation therapy sessions throughout stay on unit. Problems Currently Limiting Participation: Pt will be encouraged to participate in 1:1 and group recreation therapy sessions 3-5x week to improve R side weakness, leisure awareness level, arousal level, command following, and overall mood state. Goals and Time Frame: Pt will be encouraged to participate in 1:1 and group recreation therapy sessions 3-5x week to improve R side weakness, leisure awareness level, arousal level, command following, and overall mood state. Nutrition - Current Diet Current Diet/Supplement/Feedings: advanced bite size thin liquids. enusure plus 8 ounces 2 per day chocolate - Appetite Percent Meal Consumed: 75-100% - Assessment/Goals/Time Frame Assessments/Goals/Time Frame: Pt at moderate nutritional risk. goals: 1. Consume 75-100% at mealtime(met, continue). 2. Clinical nutrition to follow [employer] recommendations for any upgrades/downgrades in diet/beverage consistencies(met, continue). Follow-up due on 12/19/2017 - Provider Provider: Ruba Muir Case Management - Psychosocial Assessment Support Systems: Lisa Patel (mother)- [phone]. Orestes Sauceda (brother)- [phone] Psychological Interventions/Needs: Patient is AAOx3 and able to verbalize needs. Patient motivated and cooperative Discharge Concerns: Patient will likely require intermittent supervision at home, patient with 10+ steps to negotiate Patient/Family Meeting: CM met with patient and rehab team. Intervention/Goal/Outcome: 1. Goal: Intermittent supervision overall. 2. Plan: Home with VNS- referral to [facility]. 3. DME needs. 4. f/u appts. 5. Tentative discharge date: 12/27/2017? pending auth. 6. continued stay auth, LAD: 12/16- udpates to be faxed at that time. - Discharge Plan Discharge Plan: Home with services - Provider Provider: Fahad Amin License Number: [id number] Rehabilitation Plan - Treatment Plan Treatment Plan: Physical Therapy, Occupational Therapy, Speech, Dietary, Patient/Family Education - Discharge Plan Estimated Date of Discharge: 11/26/17 Discharge to: Subacute
--- NOTE | 2017-12-17 14:07 | CP.PCM.CON ---
History of Present Illness - History of Present Illness History of Present Illness: General Surgery Pt seen and examined this afternoon. Pt is known to our service as he is s/p laparoscopic left inguinal hernia repair on 11/27/[address] Corrales with post op right sided LE weakness and speech changes. Consulted for constipation. Pt reports prior to surgery he would regularly have BMs and now is having difficulty going. He denies N/V but complains that he feels like food is stuck in his throat. (+) flatus. LBM was on 12/15 (2 days ago) and he had 3 BMs on 12/14. (-) decrease in appetite. Pt also reports he has been drinking a lot of fluids and prune juice. Review of Systems - Review of Systems Systems not reviewed;Unavailable: Other (Pt with some memory loss) - Constitutional Constitutional: As Per HPI. absent: Fever - Cardiovascular Cardiovascular: absent: Chest Pain - Respiratory Respiratory: absent: Cough - Gastrointestinal Gastrointestinal: As Per HPI - Genitourinary Additional comments: Has oswald - Musculoskeletal Musculoskeletal: Abnormal Gait, Muscle Weakness - Neurological Neurological: Confusion, Focal Weakness, Memory Loss - Psychiatric Psychiatric: Memory Loss Past Patient History - Past Medical History & Family History Past Medical History?: No - Past Social History Smoking Status: See note (smoked cigars every other weekend) Alcohol: Occasional (every other weekend) - CARDIAC Hx Cardiac Disorders: No - PULMONARY Hx Respiratory Disorders: Yes Hx Asthma: Yes (Only when pt. was "a little kid") - NEUROLOGICAL Hx Neurological Disorder: No - HEENT Hx HEENT Problems: No - RENAL Hx Chronic Kidney Disease: No - ENDOCRINE/METABOLIC Hx Endocrine Disorders: No - HEMATOLOGICAL/ONCOLOGICAL Hx AIDS: No Hx Human Immunodeficiency Virus (HIV): No - INTEGUMENTARY Hx Dermatological Problems: No Other/Comment: CHICKEN POX - MUSCULOSKELETAL/RHEUMATOLOGICAL Hx Falls: No Other/Comment: - Post-operative extrapyramidal deficit - GASTROINTESTINAL Hx Gastrointestinal Disorders: No - GENITOURINARY/GYNECOLOGICAL Hx Genitourinary Disorders: Yes Other/Comment: - Post-operative urinary retention - PSYCHIATRIC Hx Substance Use: No - SURGICAL HISTORY Hx Surgeries: Yes Hx Orthopedic Surgery: Yes Other/Comment: - 11/27/2017: Laparoscopic left inguinal hernia repair. 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 - When patient was 4 or 5 years of age: surgery to reattach left middle finger. LEFT 3RD FINGER REPAIR - ANESTHESIA Hx Anesthesia: Yes Hx Anesthesia Reactions: Yes (1) No recollection and no swallowing for about 3 days) Hx Malignant Hyperthermia: No Has any member of the family had a problem w/ anesthesia?: No Meds Allergies/Adverse Reactions: Allergies Allergy/AdvReac Type Severity Reaction Status Date / Time No Known Allergies Allergy Verified 12/06/17 20:26 - Medications Medications: Current Medications Acetaminophen (Tylenol 325mg Tab) 650 mg PO Q6 PRN PRN Reason: .Pain (scale 4-10) Last Admin: 12/15/17 13:23 Dose: 650 mg Aspirin (Aspirin Chewable) 81 mg PO DAILY [facility] Last Admin: 12/17/17 08:32 Dose: 81 mg Docusate Sodium (Colace) 100 mg PO BID [facility] Last Admin: 12/17/17 08:32 Dose: 100 mg Lactulose (Enulose) 20 gm PO Q8 [facility] Last Admin: 12/17/17 13:17 Dose: 20 gm Pantoprazole Sodium (Protonix Ec Tab) 40 mg PO DAILY [facility] Last Admin: 12/17/17 08:32 Dose: 40 mg Phenazopyridine HCl (Pyridium) 200 mg PO Q12 [facility] Last Admin: 12/17/17 08:31 Dose: 200 mg Simethicone (Mylicon Chew Tab) 80 mg PO Q8 PRN PRN Reason: Flatulence Last Admin: 12/17/17 08:31 Dose: 80 mg Physical Exam - Constitutional Appears: Well, No Acute Distress - Head Exam Head Exam: NORMAL INSPECTION, NORMOCEPHALIC - Eye Exam Eye Exam: EOMI, Normal appearance - ENT Exam ENT Exam: Mucous Membranes Moist - Respiratory Exam Respiratory Exam: Clear to Auscultation Bilateral, NORMAL BREATHING PATTERN - Cardiovascular Exam Cardiovascular Exam: REGULAR RHYTHM, RRR, +S1, +S2 - GI/Abdominal Exam GI & Abdominal Exam: Normal Bowel Sounds, Soft. absent: Mass - Rectal Exam Rectal Exam: NORMAL INSPECTION. absent: Hemorrhoids, Fecal Impaction - Extremities Exam Extremities exam: Positive for: normal inspection. Negative for: calf tenderness - Neurological Exam Neurological exam: Abnormal Gait, Alert Additional comments: RLE weakness, unable to move right leg Speech: mildy slurred - Skin Skin Exam: Dry, Intact, Normal Color Additional comments: Laparoscopic incisions well healed. Results - Vital Signs Recent Vital Signs: Last Vital Signs Temp 98.8 F 12/17/17 09:00 Pulse 87 12/17/17 09:00 Resp 20 12/17/17 09:00 BP 119/61 12/17/17 09:00 Pulse Ox 98 12/17/17 08:32 - Labs Result Diagrams: 12/07/17 05:25 12/08/17 05:25 Assessment & Plan (1) Constipation Status: Acute - Assessment and Plan (Free Text) Assessment: No surgical intervention is warranted. Discussed with the pt to continue consuming large amounts of water. Also discouraged pt from eating foods that cause constipation including bananas. Continue Colace and lactulose. Order today entered for mag citrate by GI. Will follow pt.
--- NOTE | 2017-12-17 16:35 | CP.PCM.PN ---
Subjective - Date & Time of Evaluation Date of Evaluation: 12/17/17 Time of Evaluation: 16:34 - Subjective Subjective: Patient seen in the room doing ok still minimal return in the right LE. This is not a good sign for significant recovery he needs help to advance the leg safely continue current care. He is an excellent acute rehab candidate Objective - Vital Signs/Intake and Output Vital Signs (last 24 hours): Temp Pulse Resp BP Pulse Ox 98.8 F 87 20 119/61 98 12/17/17 09:00 12/17/17 09:00 12/17/17 09:00 12/17/17 09:00 12/17/17 08:32 Intake and Output: 12/17/17 12/17/17 06:59 18:59 Intake Total 300 Output Total 1500 Balance -1200 - Medications Medications: Current Medications Acetaminophen (Tylenol 325mg Tab) 650 mg PO Q6 PRN PRN Reason: .Pain (scale 4-10) Last Admin: 12/15/17 13:23 Dose: 650 mg Aspirin (Aspirin Chewable) 81 mg PO DAILY [facility] Last Admin: 12/17/17 08:32 Dose: 81 mg Docusate Sodium (Colace) 100 mg PO BID [facility] Last Admin: 12/17/17 08:32 Dose: 100 mg Lactulose (Enulose) 20 gm PO Q8 [facility] Last Admin: 12/17/17 13:17 Dose: 20 gm Pantoprazole Sodium (Protonix Ec Tab) 40 mg PO DAILY [facility] Last Admin: 12/17/17 08:32 Dose: 40 mg Phenazopyridine HCl (Pyridium) 200 mg PO Q12 [facility] Last Admin: 12/17/17 08:31 Dose: 200 mg Simethicone (Mylicon Chew Tab) 80 mg PO Q8 PRN PRN Reason: Flatulence Last Admin: 12/17/17 08:31 Dose: 80 mg - Labs Labs: 12/07/17 05:25 12/08/17 05:25
[2017-12-18] MEDS: Simethicone 80 mg Chewtab PO PRN ×2 (08:57→21:47)
[2017-12-18] MEDS: Pantoprazole 40 mg EC Tab PO SCH (08:58)
[2017-12-18] MEDS ORDERED: Magnesium Citrate Oral SOL (300 ml) PO ONE (11:39)
[2017-12-18] MEDS: Docusate-Senna 50 mg-8.6 mg Tab PO SCH (21:47)
[2017-12-19] MEDS: Pantoprazole 40 mg EC Tab PO SCH (08:11)
--- NOTE | 2017-12-19 08:41 | US ---
Date of service: 12/18/2017 HISTORY: Right calf pain PRIORS: None. FINDINGS: 2-D, color and duplex Doppler analysis of the right lower extremity venous circulation using routine protocol from the femoral veins through the popliteal veins. Venous compressibility: Normal. Flow and augmentation patterns: Normal. Visualized veins upper third of calf: Normal. Deutsch cyst: None. IMPRESSION: No sonographic or Doppler evidence for DVT in right lower extremity.
[2017-12-19] MEDS ORDERED: Lidocaine 2% GEL TOP PRN (13:50)
--- NOTE | 2017-12-19 18:14 | CP.PCM.PN ---
Subjective - Date & Time of Evaluation Date of Evaluation: 12/19/17 Time of Evaluation: 11:00 - Subjective Subjective: 32 y/o m seen and examined with Dr Cancino by bedside. Pt reports that movement of R lower extremity has been the same. --At 13:45, pt c/o severe penile pain, located on tip, intermittent every few seconds, aggravated with movement. The journalists and other writers was reached by nurse. On examination, it was observed that entry of urethra had dermal irritation. Objective - Vital Signs/Intake and Output Vital Signs (last 24 hours): Temp Pulse Resp BP Pulse Ox 97.9 F 91 H 20 119/75 97 12/19/17 08:09 12/19/17 08:53 12/19/17 08:09 12/19/17 08:09 12/19/17 08:09 Intake and Output: 12/19/17 12/19/17 06:59 18:59 Intake Total 400 Output Total 1000 450 Balance -600 -450 - Medications Medications: Current Medications Acetaminophen (Tylenol 325mg Tab) 650 mg PO Q6 PRN PRN Reason: PAIN 1-5 Last Admin: 12/18/17 22:02 Dose: 650 mg Aspirin (Aspirin Chewable) 81 mg PO DAILY [facility] Last Admin: 12/19/17 08:11 Dose: 81 mg Ibuprofen (Motrin Tab) 600 mg PO Q8 PRN PRN Reason: PAIN 5-10 Last Admin: 12/19/17 09:51 Dose: 600 mg Lactulose (Enulose) 20 gm PO Q8 [facility] Last Admin: 12/19/17 13:22 Dose: 20 gm Lidocaine HCl (Xylocaine 2%) 1 applic TOP Q6H PRN PRN Reason: Pain, severe (8-10) Pantoprazole Sodium (Protonix Ec Tab) 40 mg PO DAILY [facility] Last Admin: 12/19/17 08:11 Dose: 40 mg Phenazopyridine HCl (Pyridium) 200 mg PO Q12 [facility] Last Admin: 12/19/17 08:11 Dose: 200 mg Senna/Docusate Sodium (Senokot S 50 Mg-8.6 Mg) 2 tab PO HS [facility] Last Admin: 12/18/17 21:47 Dose: 2 tab Simethicone (Mylicon Chew Tab) 80 mg PO Q8 PRN PRN Reason: Flatulence Last Admin: 12/18/17 21:47 Dose: 80 mg - Labs Labs: 12/07/17 05:25 12/08/17 05:25 - Constitutional Appears: No Acute Distress - Head Exam Head Exam: ATRAUMATIC, NORMAL INSPECTION - Eye Exam Eye Exam: EOMI, Normal appearance - ENT Exam ENT Exam: Mucous Membranes Moist - Neck Exam Neck Exam: Full ROM - Respiratory Exam Respiratory Exam: Clear to Ausculation Bilateral, NORMAL BREATHING PATTERN - Cardiovascular Exam Cardiovascular Exam: REGULAR RHYTHM, +S1, +S2 - GI/Abdominal Exam GI & Abdominal Exam: Soft. absent: Distended, Guarding, Tenderness - Exam Exam: Circumcision. absent: Scrotal Swelling, Testicular Tenderness, Uretheral Discharge External exam: Lacerations (very small laceration on right border of urethra shashi fice. ) - Extremities Exam Extremities Exam: absent: Pedal Edema - Neurological Exam Neurological Exam: Alert, Awake, Oriented x3 Assessment and Plan (1) Aphasia as late effect of cerebrovascular accident Status: Acute (2) Constipation Status: Acute (3) Hemiparesis affecting right side as late effect of cerebrovascular accident Status: Acute (4) Urinary retention Status: Acute - Assessment and Plan (Free Text) Plan: --urology was reached for penile pain, d/c Oswald was recommended. --As per nurse, pt has had big bowel movements. --Will f/u urinary rentention after oswald catheter discontinuation. --Plan as ordered. Case discussed with Dr Cancino, attending sand control worker.
[2017-12-19] MEDS: Docusate-Senna 50 mg-8.6 mg Tab PO SCH (21:34)
[2017-12-20] MEDS: Pantoprazole 40 mg EC Tab PO SCH (08:00)
--- NOTE | 2017-12-20 13:22 | CP.PCM.PN ---
Subjective - Date & Time of Evaluation Date of Evaluation: 12/20/17 Time of Evaluation: 13:21 - Subjective Subjective: no overnight events Objective - Vital Signs/Intake and Output Vital Signs (last 24 hours): Temp Pulse Resp BP Pulse Ox 98.2 F 72 18 105/63 95 12/20/17 07:36 12/20/17 07:36 12/20/17 07:36 12/20/17 07:36 12/20/17 07:36 - Medications Medications: Current Medications Acetaminophen (Tylenol 325mg Tab) 650 mg PO Q6 PRN PRN Reason: PAIN 1-5 Last Admin: 12/18/17 22:02 Dose: 650 mg Aspirin (Aspirin Chewable) 81 mg PO DAILY [facility] Last Admin: 12/20/17 08:00 Dose: 81 mg Ibuprofen (Motrin Tab) 600 mg PO Q8 PRN PRN Reason: PAIN 5-10 Last Admin: 12/19/17 09:51 Dose: 600 mg Lactulose (Enulose) 20 gm PO Q8 [facility] Last Admin: 12/20/17 13:07 Dose: 20 gm Lidocaine HCl (Xylocaine 2%) 1 applic TOP Q6H PRN PRN Reason: Pain, severe (8-10) Last Admin: 12/19/17 14:30 Dose: 1 applic Pantoprazole Sodium (Protonix Ec Tab) 40 mg PO DAILY [facility] Last Admin: 12/20/17 08:00 Dose: 40 mg Phenazopyridine HCl (Pyridium) 200 mg PO Q12 [facility] Last Admin: 12/20/17 08:00 Dose: 200 mg Senna/Docusate Sodium (Senokot S 50 Mg-8.6 Mg) 2 tab PO HS [facility] Last Admin: 12/19/17 21:34 Dose: 2 tab Simethicone (Mylicon Chew Tab) 80 mg PO Q8 PRN PRN Reason: Flatulence Last Admin: 12/18/17 21:47 Dose: 80 mg Simethicone (Mylicon Chew Tab) 80 mg PO Q8 PRN PRN Reason: Flatulence - Labs Labs: 12/07/17 05:25 12/08/17 05:25 - Neck Exam Neck Exam: Normal Inspection - Respiratory Exam Respiratory Exam: NORMAL BREATHING PATTERN - Cardiovascular Exam Cardiovascular Exam: REGULAR RHYTHM - GI/Abdominal Exam GI & Abdominal Exam: Soft, Normal Bowel Sounds Assessment and Plan - Assessment and Plan (Free Text) Assessment: 32 yo male with constipation needs to be on stable daily regimen laxatives for now and then conversion to amitiza or linzess daily
--- NOTE | 2017-12-20 19:55 | CP.PCM.PN ---
Subjective - Date & Time of Evaluation Date of Evaluation: 12/20/17 Time of Evaluation: 19:54 - Subjective Subjective: Patient seen in the room doing ok but down since he had some incontinence and was not able to reach the bathroom on a few occasions today + dysarthria remains dense right LE plegia, improving UE but really very little return in the LE. He remains motivated and is making good functional progress Objective - Vital Signs/Intake and Output Vital Signs (last 24 hours): Temp Pulse Resp BP Pulse Ox 98.2 F 72 18 105/63 95 12/20/17 07:36 12/20/17 07:36 12/20/17 07:36 12/20/17 07:36 12/20/17 07:36 - Medications Medications: Current Medications Acetaminophen (Tylenol 325mg Tab) 650 mg PO Q6 PRN PRN Reason: PAIN 1-5 Last Admin: 12/18/17 22:02 Dose: 650 mg Aspirin (Aspirin Chewable) 81 mg PO DAILY [facility] Last Admin: 12/20/17 08:00 Dose: 81 mg Ibuprofen (Motrin Tab) 600 mg PO Q8 PRN PRN Reason: PAIN 5-10 Last Admin: 12/19/17 09:51 Dose: 600 mg Lactulose (Enulose) 20 gm PO Q8 [facility] Last Admin: 12/20/17 13:07 Dose: 20 gm Lidocaine HCl (Xylocaine 2%) 1 applic TOP Q6H PRN PRN Reason: Pain, severe (8-10) Last Admin: 12/19/17 14:30 Dose: 1 applic Pantoprazole Sodium (Protonix Ec Tab) 40 mg PO DAILY [facility] Last Admin: 12/20/17 08:00 Dose: 40 mg Phenazopyridine HCl (Pyridium) 200 mg PO Q12 [facility] Last Admin: 12/20/17 08:00 Dose: 200 mg Senna/Docusate Sodium (Senokot S 50 Mg-8.6 Mg) 2 tab PO HS [facility] Last Admin: 12/19/17 21:34 Dose: 2 tab Simethicone (Mylicon Chew Tab) 80 mg PO Q8 PRN PRN Reason: Flatulence Last Admin: 12/18/17 21:47 Dose: 80 mg Simethicone (Mylicon Chew Tab) 80 mg PO Q8 PRN PRN Reason: Flatulence - Labs Labs: 12/07/17 05:25 12/08/17 05:25
[2017-12-20] MEDS: Docusate-Senna 50 mg-8.6 mg Tab PO SCH (21:29)
[2017-12-21] MEDS: Pantoprazole 40 mg EC Tab PO SCH (09:01)
[2017-12-21] MEDS: Simethicone 80 mg Chewtab PO PRN (09:03)
--- NOTE | 2017-12-21 19:22 | CP.PCM.PN ---
Subjective - Date & Time of Evaluation Date of Evaluation: 12/18/17 Time of Evaluation: 11:00 - Subjective Subjective: patient seen and examined at bedside. no acute events overnight. continues with constipation. urinary oswald in place. Objective - Vital Signs/Intake and Output Vital Signs (last 24 hours): Temp Pulse Resp BP Pulse Ox 97.0 F L 75 22 121/77 96 12/21/17 08:40 12/21/17 08:40 12/21/17 08:40 12/21/17 08:40 12/21/17 08:40 - Medications Medications: Current Medications Acetaminophen (Tylenol 325mg Tab) 650 mg PO Q6 PRN PRN Reason: PAIN 1-5 Last Admin: 12/18/17 22:02 Dose: 650 mg Aspirin (Aspirin Chewable) 81 mg PO DAILY [facility] Last Admin: 12/21/17 09:01 Dose: 81 mg Ibuprofen (Motrin Tab) 600 mg PO Q8 PRN PRN Reason: PAIN 5-10 Last Admin: 12/19/17 09:51 Dose: 600 mg Lactulose (Enulose) 20 gm PO Q8 [facility] Last Admin: 12/21/17 14:22 Dose: 20 gm Lidocaine HCl (Xylocaine 2%) 1 applic TOP Q6H PRN PRN Reason: Pain, severe (8-10) Last Admin: 12/19/17 14:30 Dose: 1 applic Pantoprazole Sodium (Protonix Ec Tab) 40 mg PO DAILY [facility] Last Admin: 12/21/17 09:01 Dose: 40 mg Phenazopyridine HCl (Pyridium) 200 mg PO Q12 [facility] Last Admin: 12/21/17 09:01 Dose: 200 mg Senna/Docusate Sodium (Senokot S 50 Mg-8.6 Mg) 2 tab PO HS [facility] Last Admin: 12/20/17 21:29 Dose: 2 tab Simethicone (Mylicon Chew Tab) 80 mg PO Q8 PRN PRN Reason: Flatulence - Labs Labs: 12/07/17 05:25 12/08/17 05:25 - Additional Findings Additional findings: - Constitutional Appears: No Acute Distress - Head Exam Head Exam: ATRAUMATIC, NORMAL INSPECTION - Eye Exam Eye Exam: Normal appearance - Neck Exam Neck Exam: Full ROM - Respiratory Exam Respiratory Exam: Clear to Ausculation Bilateral, NORMAL BREATHING PATTERN - Cardiovascular Exam Cardiovascular Exam: REGULAR RHYTHM, +S1, +S2 - GI/Abdominal Exam GI & Abdominal Exam: Soft. absent: Distended, Guarding, Tenderness - Neurological Exam Neurological Exam: Alert, Awake, Oriented x3 Assessment and Plan - Assessment and Plan (Free Text) Assessment: 32 y/o male admitted for acute rehab after he develop speech and swallowing difficulty and right sided hemiparesis while in the recovery after a left inguinal hernia repair. constipation GI following c/w adjusting constipation medications surgery recommendations appreciated c/w PT/OT
--- NOTE | 2017-12-21 19:27 | CP.PCM.PN ---
Subjective - Date & Time of Evaluation Date of Evaluation: 12/20/17 Time of Evaluation: 11:00 - Subjective Subjective: patient seen and examined at bedside. no acute events overnight. oswald removed yesterday. urinating freely. still with constipation though having BMs occasionally, yet as per patient small. per nursing staff, moderate-full BM present. Objective - Vital Signs/Intake and Output Vital Signs (last 24 hours): Temp Pulse Resp BP Pulse Ox 97.0 F L 75 22 121/77 96 12/21/17 08:40 12/21/17 08:40 12/21/17 08:40 12/21/17 08:40 12/21/17 08:40 - Medications Medications: Current Medications Acetaminophen (Tylenol 325mg Tab) 650 mg PO Q6 PRN PRN Reason: PAIN 1-5 Last Admin: 12/18/17 22:02 Dose: 650 mg Aspirin (Aspirin Chewable) 81 mg PO DAILY [facility] Last Admin: 12/21/17 09:01 Dose: 81 mg Ibuprofen (Motrin Tab) 600 mg PO Q8 PRN PRN Reason: PAIN 5-10 Last Admin: 12/19/17 09:51 Dose: 600 mg Lactulose (Enulose) 20 gm PO Q8 [facility] Last Admin: 12/21/17 14:22 Dose: 20 gm Lidocaine HCl (Xylocaine 2%) 1 applic TOP Q6H PRN PRN Reason: Pain, severe (8-10) Last Admin: 12/19/17 14:30 Dose: 1 applic Pantoprazole Sodium (Protonix Ec Tab) 40 mg PO DAILY [facility] Last Admin: 12/21/17 09:01 Dose: 40 mg Phenazopyridine HCl (Pyridium) 200 mg PO Q12 [facility] Last Admin: 12/21/17 09:01 Dose: 200 mg Senna/Docusate Sodium (Senokot S 50 Mg-8.6 Mg) 2 tab PO HS [facility] Last Admin: 12/20/17 21:29 Dose: 2 tab Simethicone (Mylicon Chew Tab) 80 mg PO Q8 PRN PRN Reason: Flatulence - Labs Labs: 12/07/17 05:25 12/08/17 05:25 - Additional Findings Additional findings: - Constitutional Appears: No Acute Distress - Head Exam Head Exam: ATRAUMATIC, NORMAL INSPECTION - Eye Exam Eye Exam: Normal appearance - Neck Exam Neck Exam: Full ROM - Respiratory Exam Respiratory Exam: Clear to Ausculation Bilateral, NORMAL BREATHING PATTERN - Cardiovascular Exam Cardiovascular Exam: REGULAR RHYTHM, +S1, +S2 - GI/Abdominal Exam GI & Abdominal Exam: Soft. absent: Distended, Guarding, Tenderness - Neurological Exam Neurological Exam: Alert, Awake, Oriented x3 Assessment and Plan - Assessment and Plan (Free Text) Assessment: 32 y/o male admitted for acute rehab after he develop speech and swallowing difficulty and right sided hemiparesis while in the recovery after a left inguinal hernia repair. constipation improving GI following c/w adjusting constipation medications continue monitor BM and urinary output c/w PT/OT
--- NOTE | 2017-12-21 19:28 | CP.PCM.PN ---
Subjective - Date & Time of Evaluation Date of Evaluation: 12/21/17 Time of Evaluation: 15:00 - Subjective Subjective: patient seen and examined at bedside. no acute events overnight. continues to urinate freely. still with constipation though having BMs occasionally. GI saw patient. Objective - Vital Signs/Intake and Output Vital Signs (last 24 hours): Temp Pulse Resp BP Pulse Ox 97.0 F L 75 22 121/77 96 12/21/17 08:40 12/21/17 08:40 12/21/17 08:40 12/21/17 08:40 12/21/17 08:40 - Medications Medications: Current Medications Acetaminophen (Tylenol 325mg Tab) 650 mg PO Q6 PRN PRN Reason: PAIN 1-5 Last Admin: 12/18/17 22:02 Dose: 650 mg Aspirin (Aspirin Chewable) 81 mg PO DAILY [facility] Last Admin: 12/21/17 09:01 Dose: 81 mg Ibuprofen (Motrin Tab) 600 mg PO Q8 PRN PRN Reason: PAIN 5-10 Last Admin: 12/19/17 09:51 Dose: 600 mg Lactulose (Enulose) 20 gm PO Q8 [facility] Last Admin: 12/21/17 14:22 Dose: 20 gm Lidocaine HCl (Xylocaine 2%) 1 applic TOP Q6H PRN PRN Reason: Pain, severe (8-10) Last Admin: 12/19/17 14:30 Dose: 1 applic Pantoprazole Sodium (Protonix Ec Tab) 40 mg PO DAILY [facility] Last Admin: 12/21/17 09:01 Dose: 40 mg Phenazopyridine HCl (Pyridium) 200 mg PO Q12 [facility] Last Admin: 12/21/17 09:01 Dose: 200 mg Senna/Docusate Sodium (Senokot S 50 Mg-8.6 Mg) 2 tab PO HS [facility] Last Admin: 12/20/17 21:29 Dose: 2 tab Simethicone (Mylicon Chew Tab) 80 mg PO Q8 PRN PRN Reason: Flatulence - Labs Labs: 12/07/17 05:25 12/08/17 05:25 - Additional Findings Additional findings: - Constitutional Appears: No Acute Distress - Head Exam Head Exam: ATRAUMATIC, NORMAL INSPECTION - Eye Exam Eye Exam: Normal appearance - Neck Exam Neck Exam: Full ROM - Respiratory Exam Respiratory Exam: Clear to Ausculation Bilateral, NORMAL BREATHING PATTERN - Cardiovascular Exam Cardiovascular Exam: REGULAR RHYTHM, +S1, +S2 - GI/Abdominal Exam GI & Abdominal Exam: Soft. absent: Distended, Guarding, Tenderness - Neurological Exam Neurological Exam: Alert, Awake, Oriented x3 Assessment and Plan - Assessment and Plan (Free Text) Assessment: 32 y/o male admitted for acute rehab after he develop speech and swallowing difficulty and right sided hemiparesis while in the recovery after a left inguinal hernia repair. constipation improving GI following c/w adjusting constipation medications continue monitor BM and urinary output rx for amitza given c/w PT/OT
[2017-12-21] MEDS: Docusate-Senna 50 mg-8.6 mg Tab PO SCH (21:44)
[2017-12-22 08:25] LABS: HEMOGLOBIN 14.3 g/dL (12.0-18.0); MEAN CELL VOLUME 92.2 fl (80.0-94.0); MEAN CORPUSCULAR HEMOGLOBIN 30.7 pg (27.0-31.0); MEAN CORPUSCULAR HGB CONC 33.3 g/dL (33.0-37.0); RBC 4.67 Mil/uL (4.40-5.90); RED CELL DISTRIBUTION WIDTH 13.7 % (11.5-14.5); WHITE BLOOD COUNT 7.8 K/uL (4.8-10.8)
[2017-12-22 08:46] LABS: ALB/GLOB RATIO 1.4 (1.0-2.1); ALBUMIN 4.7 g/dL (3.5-5.0); ALT/SGPT 46 U/L (21-72); AST/SGOT 28 U/L (17-59); BLOOD UREA NITROGEN 13 mg/dl (9-20); GFR NON-AFRICAN AMERICAN > 60
[2017-12-22] MEDS: Pantoprazole 40 mg EC Tab PO SCH (08:53)
--- NOTE | 2017-12-22 18:44 | CP.PCM.PN ---
Subjective - Date & Time of Evaluation Date of Evaluation: 12/22/17 Time of Evaluation: 11:00 - Subjective Subjective: patient seen and examined at bedside. no acute events overnight. continues to urinate freely though incontinent at times. still with constipation though having BMs occasionally. Objective - Vital Signs/Intake and Output Vital Signs (last 24 hours): Temp Pulse Resp BP Pulse Ox 97.5 F L 63 22 111/75 96 12/22/17 08:16 12/22/17 08:16 12/22/17 08:16 12/22/17 08:16 12/22/17 08:16 - Medications Medications: Current Medications Acetaminophen (Tylenol 325mg Tab) 650 mg PO Q6 PRN PRN Reason: PAIN 1-5 Last Admin: 12/18/17 22:02 Dose: 650 mg Aspirin (Aspirin Chewable) 81 mg PO DAILY [facility] Last Admin: 12/22/17 08:52 Dose: 81 mg Ibuprofen (Motrin Tab) 600 mg PO Q8 PRN PRN Reason: PAIN 5-10 Last Admin: 12/19/17 09:51 Dose: 600 mg Lactulose (Enulose) 20 gm PO Q8 [facility] Last Admin: 12/22/17 13:39 Dose: 20 gm Lidocaine HCl (Xylocaine 2%) 1 applic TOP Q6H PRN PRN Reason: Pain, severe (8-10) Last Admin: 12/19/17 14:30 Dose: 1 applic Oxybutynin Chloride (Ditropan Tab) 5 mg PO BID [facility] Pantoprazole Sodium (Protonix Ec Tab) 40 mg PO DAILY [facility] Last Admin: 12/22/17 08:53 Dose: 40 mg Senna/Docusate Sodium (Senokot S 50 Mg-8.6 Mg) 2 tab PO HS [facility] Last Admin: 12/21/17 21:44 Dose: 2 tab Simethicone (Mylicon Chew Tab) 80 mg PO Q8 PRN PRN Reason: Flatulence - Labs Labs: 12/22/17 07:00 12/22/17 07:00 - Additional Findings Additional findings: - Constitutional Appears: No Acute Distress - Head Exam Head Exam: ATRAUMATIC, NORMAL INSPECTION - Eye Exam Eye Exam: Normal appearance - Neck Exam Neck Exam: Full ROM - Respiratory Exam Respiratory Exam: Clear to Ausculation Bilateral, NORMAL BREATHING PATTERN - Cardiovascular Exam Cardiovascular Exam: REGULAR RHYTHM, +S1, +S2 - GI/Abdominal Exam GI & Abdominal Exam: Soft. absent: Distended, Guarding, Tenderness - Neurological Exam Neurological Exam: Alert, Awake, Oriented x3 Assessment and Plan - Assessment and Plan (Free Text) Assessment: 32 y/o male admitted for acute rehab after he develop speech and swallowing difficulty and right sided hemiparesis while in the recovery after a left inguinal hernia repair. constipation improving. now with incontinence GI following c/w adjusting constipation medications continue monitor BM and urinary output rx for amitza given trial oxybutnin c/w PT/OT
[2017-12-22] MEDS: Docusate-Senna 50 mg-8.6 mg Tab PO SCH (21:34)
[2017-12-23] MEDS: Pantoprazole 40 mg EC Tab PO SCH (08:43)
[2017-12-23 08:53] LABS: HEPATITIS B SURFACE AG Negative (NEGATIVE)
[2017-12-23 08:58] LABS: HEPATITIS A IGM NEGATIVE (NEGATIVE); HEPATITIS B CORE AB NEGATIVE (NEGATIVE)
[2017-12-23 09:10] LABS: HEPATITIS C ANTIBODY NEGATIVE (NEGATIVE)
--- NOTE | 2017-12-23 15:17 | CP.PCM.PN ---
Subjective - Date & Time of Evaluation Date of Evaluation: 12/23/17 Time of Evaluation: 10:00 - Subjective Subjective: patient seen and examined at bedside. no acute events overnight. continues to urinate freely though incontinent at times. still with constipation though having BMs occasionally. As per staff, speech slower today. Objective - Vital Signs/Intake and Output Vital Signs (last 24 hours): Temp Pulse Resp BP Pulse Ox 98.1 F 63 20 110/71 97 12/23/17 07:31 12/23/17 07:31 12/23/17 07:31 12/23/17 07:31 12/23/17 07:31 - Medications Medications: Current Medications Acetaminophen (Tylenol 325mg Tab) 650 mg PO Q6 PRN PRN Reason: PAIN 1-5 Last Admin: 12/22/17 21:50 Dose: 650 mg Aspirin (Aspirin Chewable) 81 mg PO DAILY [facility] Last Admin: 12/23/17 08:44 Dose: 81 mg Ibuprofen (Motrin Tab) 600 mg PO Q8 PRN PRN Reason: PAIN 5-10 Last Admin: 12/19/17 09:51 Dose: 600 mg Lactulose (Enulose) 20 gm PO Q8 [facility] Last Admin: 12/23/17 13:28 Dose: 20 gm Lidocaine HCl (Xylocaine 2%) 1 applic TOP Q6H PRN PRN Reason: Pain, severe (8-10) Last Admin: 12/19/17 14:30 Dose: 1 applic Oxybutynin Chloride (Ditropan Tab) 5 mg PO BID [facility] Last Admin: 12/23/17 08:43 Dose: 5 mg Pantoprazole Sodium (Protonix Ec Tab) 40 mg PO DAILY [facility] Last Admin: 12/23/17 08:43 Dose: 40 mg Senna/Docusate Sodium (Senokot S 50 Mg-8.6 Mg) 2 tab PO HS [facility] Last Admin: 12/22/17 21:34 Dose: 2 tab Simethicone (Mylicon Chew Tab) 80 mg PO Q8 PRN PRN Reason: Flatulence - Labs Labs: 12/22/17 07:00 12/22/17 07:00 - Additional Findings Additional findings: 32 y/o male admitted for acute rehab after he develop speech and swallowing difficulty and right sided hemiparesis while in the recovery after a left inguinal hernia repair. constipation improving. now with urinary incontinence GI following c/w adjusting constipation medications continue monitor BM and urinary output c/w trial oxybutnin c/w PT/OT request neuro follow up
[2017-12-23] MEDS: Simethicone 80 mg Chewtab PO PRN (15:38)
--- NOTE | 2017-12-23 17:09 | CP.PCM.PN ---
Subjective - Date & Time of Evaluation Date of Evaluation: 12/23/17 Time of Evaluation: 17:08 - Subjective Subjective: Patient seen in the room had a better day and in better spirits only a single episode of incontinence no pain no sob voice is a little more clear today than on saturday continue current care Objective - Vital Signs/Intake and Output Vital Signs (last 24 hours): Temp Pulse Resp BP Pulse Ox 98.1 F 63 20 110/71 97 12/23/17 07:31 12/23/17 07:31 12/23/17 07:31 12/23/17 07:31 12/23/17 07:31 - Medications Medications: Current Medications Acetaminophen (Tylenol 325mg Tab) 650 mg PO Q6 PRN PRN Reason: PAIN 1-5 Last Admin: 12/22/17 21:50 Dose: 650 mg Aspirin (Aspirin Chewable) 81 mg PO DAILY [facility] Last Admin: 12/23/17 08:44 Dose: 81 mg Ibuprofen (Motrin Tab) 600 mg PO Q8 PRN PRN Reason: PAIN 5-10 Last Admin: 12/23/17 15:38 Dose: 600 mg Lactulose (Enulose) 20 gm PO Q8 [facility] Last Admin: 12/23/17 13:28 Dose: 20 gm Lidocaine HCl (Xylocaine 2%) 1 applic TOP Q6H PRN PRN Reason: Pain, severe (8-10) Last Admin: 12/19/17 14:30 Dose: 1 applic Oxybutynin Chloride (Ditropan Tab) 5 mg PO BID [facility] Last Admin: 12/23/17 17:04 Dose: 5 mg Pantoprazole Sodium (Protonix Ec Tab) 40 mg PO DAILY [facility] Last Admin: 12/23/17 08:43 Dose: 40 mg Senna/Docusate Sodium (Senokot S 50 Mg-8.6 Mg) 2 tab PO HS [facility] Last Admin: 12/22/17 21:34 Dose: 2 tab Simethicone (Mylicon Chew Tab) 80 mg PO Q8 PRN PRN Reason: Flatulence Last Admin: 12/23/17 15:38 Dose: 80 mg - Labs Labs: 12/22/17 07:00 12/22/17 07:00
[2017-12-23] MEDS: Docusate-Senna 50 mg-8.6 mg Tab PO SCH (21:17)
[2017-12-24] MEDS: Pantoprazole 40 mg EC Tab PO SCH (08:18)
[2017-12-24] MEDS: Simethicone 80 mg Chewtab PO PRN (08:20)
[2017-12-24] MEDS: AMITIZA 24 MCG PO SCH ×2 (13:11→21:37)
--- NOTE | 2017-12-24 13:16 | PCM.PSYTMC ---
Acute Rehab Team Conference - - Vital Signs: Vital Signs (Last 8 Hours): Vital Signs 12/24/17 12/24/17 07:32 09:00 Temperature 97.7 F 97.7 F Pulse Rate 73 73 Respiratory 20 20 Rate Blood Pressure 115/68 115/68 O2 Sat by Pulse 96 Oximetry Pain: 0 - Precautions: Precautions: Fall Prevention - Medications/Other Issues: Comment: -Still doesn't move bowels everyday, urinating freely but gets incidental accidents with urine due to urgency. - Complained he feels like his speech is slower. Notified Dr. Roberson per Dr. Cancino's order, No new orders made. - Consults: Comment: Dr. Roberson, Dr. Darlnig, Dr. Hood, Dr. Morton, Dr. Trevino, Dr. Per Bryant - Skin: Incision Site: Abdomen Incision Line Treatment: healed - Toileting: Toileting: Minimal Assistance - Bladder Management: Bladder Pattern: Urgency Voiding Method: Toilet, Urinal, Diaper Bladder Management: Minimal Assistance Other Intervention:: # of accidents 3 - Transfers: Transfers: Minimal Assistance - ADL's: ADL's: Minimal Assistance - Pain Management: Other Intervention:: Ibuprofen PRN - Patient/Family Teaching: Other Intervention:: Safety and fall precautions, Bowel and Bladder management. - Goals/Time Frame: Comment: PER MULTIDISCIPLINARY CARE PLAN GOALS - Provider: Registered Nurse:: Margo Crouch Physical Therapy - Bed Mobility Bed Mobility: Verbal Cues, Contact Guard, Minimal Assistance - Transfers Wheelchair to Mat: Verbal Cues, Minimal Assistance Sit to Stand: Verbal Cues, Contact Guard, Minimal Assistance - Ambulation Level of Assistance: Contact Guard, Minimal Assistance Distance (ft.): 100 Assistive Devices: Crutches Orthoses: right molded AFO. (total A to don/doff) Comment: 100 feet with B axillary crutches with CG/min A. -used trial R molded AFO with 50% foot-place and calf strap; total A to don/doff MAFO at this time. -encouraged patient to utilzie a step to gait pattern leading with RLE with slow speed to reduce utilization of compensatory strategies and promote recovery and improved active utilization and return to normalized gait pattern. -patient continues with weak distal RLE; with use of AFO patient able to utilize some trunk flexion/hip circumduction/hip hiking to advance RLE; encourage patient to minimize use of circumduction and to utilize hip flexion as able and to optimize heel strike. -encouraged patient to increase weight bearing during weight- acceptace phase on RLE from foot flat through mid-stance through toe off to increase active proprioception of joints with weight bearing. -with this gait pattern patient states "I feel like I am walking more normally". follow for safety - Stair Negotiation Comment: -negotiated 9 8 inch steps with L rail and R crutch on both ascent/descent. -requires min A for balance and control on ascent; requires incidental assistance to ensure full placement of R foot on each step. - requires mod A on descent for initiation of RLE for descent to generate hip flexion and forward motion to bring R foot off of the step onto the next; tactile cues/CG to facilitate extension on RLE during descent; min A for trunk control. -patient reports on descent feeling like RLE is going to continue going down through floor and feels as though it is not going to accept his weight (feels this primarily on bottom step but slightly on all steps) - Standing Balance Static Stand: Supervision Comment: with use of crutches - Pain Pain (assessed during therapy session): 3 Comment: abdominal gas pain - Insight/Carryover Insight/Carryover: Good - Patient/Family Education Comment: -safety, therapy schedule, therapy goals, POC, mobility, transfers, DME, recovery process, home exercise program, use of call faith, transfers, energy pacing techniques - Assessment/Plan Assessment: Mr. Patel continues to be limited by RLE impairments. Patient continues to have impaired muscular activation in the RLE as well as impaired sensation. Patient requires min A at this time for mobility and PT is focusing on trying to maximzie recovery s/p injury as opposed to having patient rely on compensatory strategies. PT is using crutches for mobility as well as a trial MAFO to the RLE. Patient is making slow progress and continues to require skilled therapeautic intervention to maximize safety, independence and reduction of burden of care for the patient. Pt will benefit from continued medical and rehabilitation treatment at the sub-acute therapy level following completion of full length of stay in acute care in order to continue addressing his needs prior to community discharge. - Goals Tiimeframe: 2 weeks Goals: Sit <--> supine mod I. Sit <--> stand transfers mod I. Pt will ambulate 200 ft with axillary crutches and supervision. Pt will ascend/descend flight of stairs with handrail and CGA - Provider Physical Therapist:: Sandra Matamoros License Number:: [id number] Occupational Therapy - Arousal/Attention/Orientation Level of Consciousness: Awake, Alert Patient Orientation: Person, Place, Time - ADL/IADL Self Feeding: Set-up Help Grooming: Set-up Help Bathing-Upper Ext: Supervision Bathing-Lower Ext: Contact Guard, Minimal Assistance Dressing-Upper Ext: Supervision Dressing-Lower Ext: Minimal Assistance - Sitting Balance Static Sitting: Supervision Dynamic Sitting: Requires supervision - Transfers Wheelchair to Bed Transfers: Contact Guard Toilet Transfers: Contact Guard Tub Transfers: Minimal Assistance, Moderate Assistance - Wheelchair Management Level of Assistance: Modified Independent Distance (ft.): 150 - Upper Extremity Status Right Upper Extremity Comment: AROM WFLs. impaired fm coordination/dexterity in RUE. strength 3+/5 Left Upper Extremity Comment: AROM WFLs. strength 4/5 - Pain Pain (assessed during therapy session): 5 Comment: pt reports intermittent pain in abdominal region and at catheter site which is relieved with position change - Insight/Carryover Insight/Carryover: Fair - Patient/Family Education Comment: safety awareness, cva recovery, dme/ae education - Assessment/Plan Assessment: patient is a 32 yo male s/p hospitalization for elective laprascopic inguinal hernia repair; subsequently suffered lack of functioning on L side; including vocal cord paralysis. Symptoms improved, however now presents with residual RLE weakness/UE weakness, impaired dynamic standing balance, and impaired activty tolerance impacting pt's ability to complete adls safely and effectively. Pt is doing well in therapy and is able to complete transfers with cga/min A, ub adls with supervision and lb adls with min A seated at EOB. recommend continue skilled OT serivces 5-6x/week to maximize pt's functional I . recommend HIRO post IP stay. - Goals Timeframe: 1 week - Provider Occupational Therapist:: Doreen Matias License Number: [id number] Speech Therapy - Consult Information Patient on Program: Yes Medical Diagnosis: gait dysfunction Treatment Diagnosis: mild dysarthria/fluency deficits - Assessment Speech/Articulation Impairment: Mild - Plan Assessment: Carlito Patel presents mild dysarthria/fluency deficits characterized by slow, effortful speech production with periods of blocks and phoneme prolongations, resulting in pt becoming upset re: communication status; and 2.) minimal pharyngeal dysphagia characterized by intermittent pt c/o globus sensation and laryngeal discomfort; however, this has improved signficantly since the start of tx and the pt reports improved pharyngeal clearance with use of liquid wash and effortful swallow strategies. Pt's diet has been advanced to regular solids and thin liquids and he has been tolerating without any overt s/s aspiration. Pt completes all swallowing exercises independently and utilizes safe swallow strategies independently during meals; he has met tx goals and will therefore be discharged from dysphagia tx at this time; pt in agreement with d/c of dysphagia tx. He would benefit from continued speech tx 3-5x/week with a focus on improved speech fluency and verbal expression. Plan: Continue Speech/Language Therapy, Discharge Dysphagia Therapy Frequency: 3-5 times per week Duration: 1 week Goals/Timeframe: Please see progress note dated 12/23/17 for updated goals/POC Recommendations: -Continue speech tx. -Discharge dysphagia tx; maintain diet of regular solids/thin liquids - Provider Therapist: Mary Riley License Number: [id number] Recreational Therapy - Participation Participation: Participates in Individual and/or Group Sessions - Attendance Attendance: 3-5 times per week - Activities Leisure Activities: Cards and Games - Socialization Level of Socialization: Initiates/interacts freely with care givers and peer - Diversional Time Diversional Time: cards, dominoes, enjoys being active - Assessment Assessment/Plan: Pt is agreeable to participate in 1:1 and group recreation therapy sessions. Pt is oriented to skip-gagan card task, painting, and other leisure tasks utilizing both hands. Pt is mod I with leisure tasks following orientation and setup to new leisure tasks. Pt demonstrates improved arousal level and attention to task. Pt's participation and mood state is limited by pain or discomfort at times. Pt will continue to benefit from participating in recreation therapy sessions throughout stay on unit. Problems Currently Limiting Participation: Pt will be encouraged to participate in 1:1 and group recreation therapy sessions 3-5x week to improve R side weakness, leisure awareness level, arousal level, command following, and overall mood state. Goals and Time Frame: Pt will be encouraged to participate in 1:1 and group recreation therapy sessions 3-5x week to improve R side weakness, leisure awareness level, arousal level, command following, and overall mood state. - Provider Therapist: Sarah Vidal Nutrition - Current Diet Current Diet/Supplement/Feedings: Regular diet - Appetite Percent Meal Consumed: 75-100% - Assessment/Goals/Time Frame Assessments/Goals/Time Frame: Pt at moderate nutritional risk. goals: 1. Consume 75-100% at mealtime(met, continue). 2. Clinical nutrition to follow MANAGER CODING recommendations for any upgrades/downgrades in diet/beverage consistencies(met, continue). Follow-up due on 12/25/2017 - Provider Provider: Ruba Muir Case Management - Psychosocial Assessment Support Systems: Lisa Jorge (mother)- [phone]. Orestes Sauceda (sibling)- [phone] Psychological Interventions/Needs: Patient is alert and oriented x3 and able to verbalize needs. Patient is pleasant and motivated for therapy Discharge Concerns: Patient continues to be unable to move RLE against gravity with (-) palpable muscle contraction- patient utilizing compensatory stratgies for advancement of RLE Patient/Family Meeting: CM met with patient and rehab team Intervention/Goal/Outcome: 1. Goal: Supervision? 2. Plan: Home vs [facility] as patient continues to demonstrate no active return in RLE and continues to require max A for advancement or RLE. Patient continues with c/o constipation along with urinary retention. 3. Tentative discharge date: 12/27/2017. 4. continued stay auth, LAD: 12/16- CM to follow up on determination. 5. continued emotional support. - Discharge Plan Discharge Plan: Home with services - Provider Provider: Fahad Amin License Number: [id number] Rehabilitation Plan - Treatment Plan Treatment Plan: Physical Therapy, Occupational Therapy, Speech, Dietary, Patient/Family Education - Discharge Plan Estimated Date of Discharge: 12/27/17 Discharge to: Subacute
--- NOTE | 2017-12-24 14:12 | CP.PCM.PN ---
Subjective - Date & Time of Evaluation Date of Evaluation: 12/24/17 Time of Evaluation: 14:08 - Subjective Subjective: Patient seen in room and had an extensive conversation with his brother who is obviously upset by the whole situation Carlito though did not agree with the statements that his brother was making and stated this after he left He does have a bowel issue that we are trying to resolve and he is still incontinent of urine at times I will order a post-void residual bladder scan to see if there is overflow incontinence. Also cystogram may be helpful. Urologist is on vacation at this time. Will get a repeat flat plate labs were normal with no white count. continue therapies. Objective - Vital Signs/Intake and Output Vital Signs (last 24 hours): Temp Pulse Resp BP Pulse Ox 97.7 F 73 20 115/68 96 12/24/17 09:00 12/24/17 09:00 12/24/17 09:00 12/24/17 09:00 12/24/17 07:32 - Medications Medications: Current Medications Acetaminophen (Tylenol 325mg Tab) 650 mg PO Q6 PRN PRN Reason: PAIN 1-5 Last Admin: 12/22/17 21:50 Dose: 650 mg Aspirin (Aspirin Chewable) 81 mg PO DAILY [facility] Last Admin: 12/24/17 08:18 Dose: 81 mg Home Med (Amitiza) 24 mcg PO Q12 [facility] Last Admin: 12/24/17 13:11 Dose: 24 mcg Ibuprofen (Motrin Tab) 600 mg PO Q8 PRN PRN Reason: PAIN 5-10 Last Admin: 12/23/17 15:38 Dose: 600 mg Lactulose (Enulose) 20 gm PO Q8 [facility] Last Admin: 12/24/17 13:11 Dose: 20 gm Lidocaine HCl (Xylocaine 2%) 1 applic TOP Q6H PRN PRN Reason: Pain, severe (8-10) Last Admin: 12/19/17 14:30 Dose: 1 applic Oxybutynin Chloride (Ditropan Tab) 5 mg PO BID [facility] Last Admin: 12/24/17 08:18 Dose: 5 mg Pantoprazole Sodium (Protonix Ec Tab) 40 mg PO DAILY [facility] Last Admin: 12/24/17 08:18 Dose: 40 mg Senna/Docusate Sodium (Senokot S 50 Mg-8.6 Mg) 2 tab PO HS [facility] Last Admin: 12/23/17 21:17 Dose: 2 tab Simethicone (Mylicon Chew Tab) 80 mg PO Q8 PRN PRN Reason: Flatulence Last Admin: 12/24/17 08:20 Dose: 80 mg - Labs Labs: 12/22/17 07:00 12/22/17 07:00
--- NOTE | 2017-12-24 18:14 | PN ---
DATE: 12/24/2017 SUBJECTIVE: The patient is seen and examined. Interim events noted. The patient remains in acute rehab unit. The patient is seen for . Complains of stomach upset and constipation. The patient is started a new medication started as outpatient for constipation, which is Amitiza. PHYSICAL EXAMINATION: GENERAL: The patient is in no acute distress. VITAL SIGNS: Stable. HEART: S1 and S2 normal and regular. LUNGS: Good bilateral air exchange. ABDOMEN: Soft and nontender. No sign of acute abdomen. No guarding, no rigidity, no rebound. Bowel sounds are present and normal. EXTREMITIES: No edema, no calf swelling, no tenderness. No acute ischemia. INTERIOR DESIGN PRINCIPAL: Exam is essentially unchanged. LABORATORY DATA: Available diagnostic data reviewed. ASSESSMENT AND PLAN: Overall, the patient is rehab and is getting better. Plan as ordered. Frank Hunt MD
--- NOTE | 2017-12-24 18:20 | RAD ---
Date of service: 12/24/2017 HISTORY: constipation COMPARISON: 12/16/2017 FINDINGS: BOWEL: There is large amount of stool in the colon. The bowel gas pattern is nonobstructive. BONES: Normal. OTHER FINDINGS: None. IMPRESSION: Severe constipation with fecal impaction. Nonobstructive bowel gas pattern.
--- NOTE | 2017-12-24 19:24 | CP.PCM.PN ---
Subjective - Date & Time of Evaluation Date of Evaluation: 12/24/17 Time of Evaluation: 19:22 - Subjective Subjective: Patient seen again after the KUB which still showed significant stool Rectal examination showed good tone and intact sensation but he didn't have strong anal contraction PVR was 150cc this time I have discussed with him doing timed voiding trials to help minimize incontinence. Objective - Vital Signs/Intake and Output Vital Signs (last 24 hours): Temp Pulse Resp BP Pulse Ox 97.7 F 73 20 115/68 96 12/24/17 09:00 12/24/17 09:00 12/24/17 09:00 12/24/17 09:00 12/24/17 07:32 - Medications Medications: Current Medications Acetaminophen (Tylenol 325mg Tab) 650 mg PO Q6 PRN PRN Reason: PAIN 1-5 Last Admin: 12/22/17 21:50 Dose: 650 mg Aspirin (Aspirin Chewable) 81 mg PO DAILY [facility] Last Admin: 12/24/17 08:18 Dose: 81 mg Home Med (Amitiza) 24 mcg PO Q12 [facility] Last Admin: 12/24/17 13:11 Dose: 24 mcg Ibuprofen (Motrin Tab) 600 mg PO Q8 PRN PRN Reason: PAIN 5-10 Last Admin: 12/23/17 15:38 Dose: 600 mg Lactulose (Enulose) 20 gm PO Q8 [facility] Last Admin: 12/24/17 13:11 Dose: 20 gm Lidocaine HCl (Xylocaine 2%) 1 applic TOP Q6H PRN PRN Reason: Pain, severe (8-10) Last Admin: 12/19/17 14:30 Dose: 1 applic Oxybutynin Chloride (Ditropan Tab) 5 mg PO BID [facility] Last Admin: 12/24/17 17:28 Dose: 5 mg Pantoprazole Sodium (Protonix Ec Tab) 40 mg PO DAILY [facility] Last Admin: 12/24/17 08:18 Dose: 40 mg Senna/Docusate Sodium (Senokot S 50 Mg-8.6 Mg) 2 tab PO HS [facility] Last Admin: 12/23/17 21:17 Dose: 2 tab Simethicone (Mylicon Chew Tab) 80 mg PO Q8 PRN PRN Reason: Flatulence Last Admin: 12/24/17 08:20 Dose: 80 mg - Labs Labs: 12/22/17 07:00 12/22/17 07:00
[2017-12-24] MEDS: Docusate-Senna 50 mg-8.6 mg Tab PO SCH (21:37)
[2017-12-25] MEDS: Simethicone 80 mg Chewtab PO PRN (08:28)
[2017-12-25] MEDS: AMITIZA 24 MCG PO SCH ×2 (08:28→21:22)
[2017-12-25] MEDS: Pantoprazole 40 mg EC Tab PO SCH (08:29)
--- NOTE | 2017-12-25 15:24 | CP.PCM.PN ---
Subjective - Date & Time of Evaluation Date of Evaluation: 12/25/17 Time of Evaluation: 15:14 - Subjective Subjective: General Surgery Pt seen and examined this afternoon. Pt found on stationary bike, pedaling without difficulty. Pt reports for the past 2-3 days he has been having left inguinal pain. He reports the pain is exacerbated when he goes from sitting to standing and when he is stretched out in bed to get changed. He reports the pain lasts 10 mins at a time. He has been offered pain medication and has refused as per RN. Pt has been having regular BMs and passing flatus. Appetite Excellent. Of note, pt has a hx of a left knee infection requiring surgery, he had mostly depended on his right leg since then up until his hernia surgery ~6 weeks ago. Now pt is compensating his mobility with his left leg for therapy. Pt is currently getting 1 hour of PT a day, 1 hour of OT a day and [address] a day. PE Gen: Pt pedaling with no apparent discomfort or apparent pain. Skin: warm and dry Cardio: [id number] Lungs: CTA bilaterally Abd: Soft NTND, (-) inguinal tenderness bilaterally (-) inguinal hernia noted bilaterally, (-) erythema, (-) induration A/P Constipation Pt continues having large BMS and passing gas Left inguinal pain I suspect the pain the pt is feeling is likely muscular as he feels this pain when he goes from sitting to standing and when "stretched: out in bed. Pt encouraged to take pain meds that he has ordered, to see if his pain improves than it would it would suggest it is likely muscular in origin. Considering the pt is ~6 weeks post op from a laparoscopic left inguinal hernia repair, the discomfort he is feeling is unlikely from the surgery. Case discussed with Dr. oCwan. Objective - Vital Signs/Intake and Output Vital Signs (last 24 hours): Temp Pulse Resp BP Pulse Ox 98.3 F 73 21 127/66 96 12/25/17 08:35 12/25/17 08:35 12/25/17 08:35 12/25/17 08:35 12/25/17 08:35 - Medications Medications: Current Medications Acetaminophen (Tylenol 325mg Tab) 650 mg PO Q6 PRN PRN Reason: PAIN 1-5 Last Admin: 12/22/17 21:50 Dose: 650 mg Aspirin (Aspirin Chewable) 81 mg PO DAILY [facility] Last Admin: 12/25/17 08:29 Dose: 81 mg Home Med (Amitiza) 24 mcg PO Q12 [facility] Last Admin: 12/25/17 08:28 Dose: 24 mcg Ibuprofen (Motrin Tab) 600 mg PO Q8 PRN PRN Reason: PAIN 5-10 Last Admin: 12/23/17 15:38 Dose: 600 mg Lactulose (Enulose) 20 gm PO Q8 [facility] Last Admin: 12/25/17 13:19 Dose: 20 gm Lidocaine HCl (Xylocaine 2%) 1 applic TOP Q6H PRN PRN Reason: Pain, severe (8-10) Last Admin: 12/19/17 14:30 Dose: 1 applic Pantoprazole Sodium (Protonix Ec Tab) 40 mg PO DAILY [facility] Last Admin: 12/25/17 08:29 Dose: 40 mg Senna/Docusate Sodium (Senokot S 50 Mg-8.6 Mg) 2 tab PO HS [facility] Last Admin: 12/24/17 21:37 Dose: 2 tab Simethicone (Mylicon Chew Tab) 80 mg PO Q8 PRN PRN Reason: Flatulence Last Admin: 12/25/17 08:28 Dose: 80 mg - Labs Labs: 12/22/17 07:00 12/22/17 07:00 Assessment and Plan (1) Constipation Status: Acute
[2017-12-25] MEDS: Docusate-Senna 50 mg-8.6 mg Tab PO SCH (21:21)
[2017-12-26] MEDS: Pantoprazole 40 mg EC Tab PO SCH (08:14)
[2017-12-26] MEDS: AMITIZA 24 MCG PO SCH ×2 (08:14→21:32)
[2017-12-26 08:39] VITALS: O2SAT 98
--- NOTE | 2017-12-26 09:29 | CP.PCM.PN ---
Subjective - Date & Time of Evaluation Date of Evaluation: 12/25/17 Time of Evaluation: 11:00 - Subjective Subjective: urology pt seen he is cath free voiding with some post void residual which for now is acceptable. A continuing concern is difficult BM. This cond can impact his ability to void easily. Myron monitor Objective - Vital Signs/Intake and Output Vital Signs (last 24 hours): Temp Pulse Resp BP Pulse Ox 97.5 F L 66 20 114/67 98 12/26/17 08:39 12/26/17 08:39 12/26/17 08:39 12/26/17 08:39 12/26/17 08:39 - Medications Medications: Current Medications Acetaminophen (Tylenol 325mg Tab) 650 mg PO Q6 PRN PRN Reason: PAIN 1-5 Last Admin: 12/22/17 21:50 Dose: 650 mg Aspirin (Aspirin Chewable) 81 mg PO DAILY [facility] Last Admin: 12/26/17 08:14 Dose: 81 mg Home Med (Amitiza) 24 mcg PO Q12 [facility] Last Admin: 12/26/17 08:14 Dose: 24 mcg Ibuprofen (Motrin Tab) 600 mg PO Q8 PRN PRN Reason: PAIN 5-10 Last Admin: 12/23/17 15:38 Dose: 600 mg Lactulose (Enulose) 20 gm PO Q8 [facility] Last Admin: 12/26/17 06:00 Dose: 20 gm Lidocaine HCl (Xylocaine 2%) 1 applic TOP Q6H PRN PRN Reason: Pain, severe (8-10) Last Admin: 12/19/17 14:30 Dose: 1 applic Pantoprazole Sodium (Protonix Ec Tab) 40 mg PO DAILY [facility] Last Admin: 12/26/17 08:14 Dose: 40 mg Senna/Docusate Sodium (Senokot S 50 Mg-8.6 Mg) 2 tab PO HS [facility] Last Admin: 12/25/17 21:21 Dose: 2 tab Simethicone (Mylicon Chew Tab) 80 mg PO Q8 PRN PRN Reason: Flatulence Last Admin: 12/25/17 08:28 Dose: 80 mg - Labs Labs: 12/22/17 07:00 12/22/17 07:00
--- NOTE | 2017-12-26 10:13 | CP.PCM.PN ---
Subjective - Date & Time of Evaluation Date of Evaluation: 12/26/17 Time of Evaluation: 10:11 - Subjective Subjective: no overnight events Objective - Vital Signs/Intake and Output Vital Signs (last 24 hours): Temp Pulse Resp BP Pulse Ox 97.5 F L 66 20 114/67 98 12/26/17 08:39 12/26/17 08:39 12/26/17 08:39 12/26/17 08:39 12/26/17 08:39 - Medications Medications: Current Medications Acetaminophen (Tylenol 325mg Tab) 650 mg PO Q6 PRN PRN Reason: PAIN 1-5 Last Admin: 12/22/17 21:50 Dose: 650 mg Aspirin (Aspirin Chewable) 81 mg PO DAILY [facility] Last Admin: 12/26/17 08:14 Dose: 81 mg Home Med (Amitiza) 24 mcg PO Q12 [facility] Last Admin: 12/26/17 08:14 Dose: 24 mcg Ibuprofen (Motrin Tab) 600 mg PO Q8 PRN PRN Reason: PAIN 5-10 Last Admin: 12/23/17 15:38 Dose: 600 mg Lactulose (Enulose) 20 gm PO Q8 [facility] Last Admin: 12/26/17 06:00 Dose: 20 gm Lidocaine HCl (Xylocaine 2%) 1 applic TOP Q6H PRN PRN Reason: Pain, severe (8-10) Last Admin: 12/19/17 14:30 Dose: 1 applic Pantoprazole Sodium (Protonix Ec Tab) 40 mg PO DAILY [facility] Last Admin: 12/26/17 08:14 Dose: 40 mg Senna/Docusate Sodium (Senokot S 50 Mg-8.6 Mg) 2 tab PO HS [facility] Last Admin: 12/25/17 21:21 Dose: 2 tab Simethicone (Mylicon Chew Tab) 80 mg PO Q8 PRN PRN Reason: Flatulence Last Admin: 12/25/17 08:28 Dose: 80 mg - Labs Labs: 12/22/17 07:00 12/22/17 07:00 - Neck Exam Neck Exam: Normal Inspection - Respiratory Exam Respiratory Exam: Clear to Ausculation Bilateral, NORMAL BREATHING PATTERN - Cardiovascular Exam Cardiovascular Exam: REGULAR RHYTHM - GI/Abdominal Exam GI & Abdominal Exam: Soft, Normal Bowel Sounds Assessment and Plan - Assessment and Plan (Free Text) Assessment: 32 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
--- NOTE | 2017-12-26 13:56 | CP.PCM.PN ---
Subjective - Date & Time of Evaluation Date of Evaluation: 12/26/17 Time of Evaluation: 13:53 - Subjective Subjective: Patient seen in gym in OT session doing well denies abdominal pain and is quite comfortable Will be heading to [facility] for HIRO. Will have another dose of lactulose and then not have it standing dose anymore Had a tap water enema with moderate results continue current care Objective - Vital Signs/Intake and Output Vital Signs (last 24 hours): Temp Pulse Resp BP Pulse Ox 97.5 F L 66 20 114/67 98 12/26/17 08:39 12/26/17 08:39 12/26/17 08:39 12/26/17 08:39 12/26/17 08:39 - Medications Medications: Current Medications Acetaminophen (Tylenol 325mg Tab) 650 mg PO Q6 PRN PRN Reason: PAIN 1-5 Last Admin: 12/22/17 21:50 Dose: 650 mg Aspirin (Aspirin Chewable) 81 mg PO DAILY [facility] Last Admin: 12/26/17 08:14 Dose: 81 mg Home Med (Amitiza) 24 mcg PO Q12 [facility] Last Admin: 12/26/17 08:14 Dose: 24 mcg Ibuprofen (Motrin Tab) 600 mg PO Q8 PRN PRN Reason: PAIN 5-10 Last Admin: 12/23/17 15:38 Dose: 600 mg Lactulose (Enulose) 20 gm PO Q8 [facility] Last Admin: 12/26/17 13:03 Dose: 20 gm Lidocaine HCl (Xylocaine 2%) 1 applic TOP Q6H PRN PRN Reason: Pain, severe (8-10) Last Admin: 12/19/17 14:30 Dose: 1 applic Pantoprazole Sodium (Protonix Ec Tab) 40 mg PO DAILY [facility] Last Admin: 12/26/17 08:14 Dose: 40 mg Senna/Docusate Sodium (Senokot S 50 Mg-8.6 Mg) 2 tab PO HS [facility] Last Admin: 12/25/17 21:21 Dose: 2 tab Simethicone (Mylicon Chew Tab) 80 mg PO Q8 PRN PRN Reason: Flatulence Last Admin: 12/25/17 08:28 Dose: 80 mg - Labs Labs: 12/22/17 07:00 12/22/17 07:00
[2017-12-26 20:10] VITALS: PULSE 70
[2017-12-26] MEDS: Docusate-Senna 50 mg-8.6 mg Tab PO SCH (21:29)
--- NOTE | 2017-12-27 07:28 | CP.PCM.PN ---
Subjective - Date & Time of Evaluation Date of Evaluation: 12/27/17 Time of Evaluation: 07:00 - Subjective Subjective: Surgery: Dr. Corrales Patient seen and examined this am. He states that he has not had a BM for 36 hrs but is not experiencing any distention or abdominal pain. He states that the stretching inguinal pain he was previously experiencing has resolved. He otherwise denies f/c, n/v, WILL, CP, SOB, abdominal pain, diarrhea and extremity pain. He is continuing to work well with PT and OT regularly. Objective - Vital Signs/Intake and Output Vital Signs (last 24 hours): Temp Pulse Resp BP Pulse Ox 97.1 F L 70 20 120/66 98 12/26/17 20:09 12/26/17 20:09 12/26/17 20:09 12/26/17 20:09 12/26/17 20:09 - Medications Medications: Current Medications Acetaminophen (Tylenol 325mg Tab) 650 mg PO Q6 PRN PRN Reason: PAIN 1-5 Last Admin: 12/22/17 21:50 Dose: 650 mg Aspirin (Aspirin Chewable) 81 mg PO DAILY [facility] Last Admin: 12/26/17 08:14 Dose: 81 mg Home Med (Amitiza) 24 mcg PO Q12 [facility] Last Admin: 12/26/17 21:32 Dose: 24 mcg Ibuprofen (Motrin Tab) 600 mg PO Q8 PRN PRN Reason: PAIN 5-10 Last Admin: 12/23/17 15:38 Dose: 600 mg Lactulose (Enulose) 20 gm PO Q8 PRN PRN Reason: Constipation Last Admin: 12/26/17 21:32 Dose: 20 gm Lidocaine HCl (Xylocaine 2%) 1 applic TOP Q6H PRN PRN Reason: Pain, severe (8-10) Last Admin: 12/19/17 14:30 Dose: 1 applic Pantoprazole Sodium (Protonix Ec Tab) 40 mg PO DAILY [facility] Last Admin: 12/26/17 08:14 Dose: 40 mg Senna/Docusate Sodium (Senokot S 50 Mg-8.6 Mg) 2 tab PO HS [facility] Last Admin: 12/26/17 21:29 Dose: 2 tab Simethicone (Mylicon Chew Tab) 80 mg PO Q8 PRN PRN Reason: Flatulence Last Admin: 12/25/17 08:28 Dose: 80 mg - Labs Labs: 12/22/17 07:00 12/22/17 07:00 - Constitutional Appears: Well, Non-toxic, No Acute Distress - Head Exam Head Exam: ATRAUMATIC, NORMOCEPHALIC - Eye Exam Eye Exam: EOMI - ENT Exam ENT Exam: Mucous Membranes Moist - Cardiovascular Exam Cardiovascular Exam: REGULAR RHYTHM - GI/Abdominal Exam GI & Abdominal Exam: Soft. absent: Distended, Guarding, Tenderness - Extremities Exam Extremities Exam: absent: Calf Tenderness, Pedal Edema - Neurological Exam Neurological Exam: Alert, Awake, Oriented x3 - Psychiatric Exam Psychiatric exam: Normal Affect, Normal Mood - Skin Skin Exam: Dry, Intact, Normal Color, Warm Assessment and Plan - Assessment and Plan (Free Text) Assessment: 32 yr old male s/p Left inguinal hernia repair 11/27/17 with constipation Plan: continue bowel regimen continue to monitor bowel function patient to be transferred to [facility] today will d/w Dr. Antoni Adame, PGY 1
[2017-12-27] MEDS ORDERED: Influenza Vaccine (5 YR UP)/PF 60 MCG/0.5 ML SYR IM ONE (08:00)
--- NOTE | 2017-12-27 08:08 | CP.PCM.CON ---
History of Present Illness - History of Present Illness History of Present Illness: Pt is a 32 year old male admitted to [facility] and referred to the teletypewriter operator following a CVA after surgery. Social History: pt lives with his mother. He has half siblings and a biological sibling close by. Pt reported very postive relationships witih his mother, family and friends. Ed.Voc: pt born/raised in [place], works as a mortician. Pt enjoys his job and weekends. Psych history denied apart from Ritalin as a child. No history of alc/sub abuse. Pt spoke of his sadness with the CVA and current condition/challenges. He spoke of being a postive person, with attempts at staying positive at present. MSE: pt alert, oriented, relevant/coherent, no psychosis, affect constricted, no si no hi ideation. Dx: Adjustment dx with depression Plan: Continued Sup therapy Past Patient History - Past Medical History & Family History Past Medical History?: No - Past Social History Smoking Status: See note (smoked cigars every other weekend) Alcohol: Occasional (every other weekend) - CARDIAC Hx Cardiac Disorders: No - PULMONARY Hx Respiratory Disorders: Yes Hx Asthma: Yes (Only when pt. was "a little kid") - NEUROLOGICAL Hx Neurological Disorder: No - HEENT Hx HEENT Problems: No - RENAL Hx Chronic Kidney Disease: No - ENDOCRINE/METABOLIC Hx Endocrine Disorders: No - HEMATOLOGICAL/ONCOLOGICAL Hx AIDS: No Hx Human Immunodeficiency Virus (HIV): No - INTEGUMENTARY Hx Dermatological Problems: No Other/Comment: CHICKEN POX - MUSCULOSKELETAL/RHEUMATOLOGICAL Hx Falls: No Other/Comment: - Post-operative extrapyramidal deficit - GASTROINTESTINAL Hx Gastrointestinal Disorders: No - GENITOURINARY/GYNECOLOGICAL Hx Genitourinary Disorders: Yes Other/Comment: - Post-operative urinary retention - PSYCHIATRIC Hx Substance Use: No - SURGICAL HISTORY Hx Surgeries: Yes Hx Orthopedic Surgery: Yes Other/Comment: - 11/27/2017: Laparoscopic left inguinal hernia repair. 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 - When patient was [age] years of age: surgery to reattach left middle finger. LEFT 3RD FINGER REPAIR - ANESTHESIA Hx Anesthesia: Yes Hx Anesthesia Reactions: Yes (1) No recollection and no swallowing for about 3 days) Hx Malignant Hyperthermia: No Has any member of the family had a problem w/ anesthesia?: No Meds Home Medications: Home Medication List Medication Instructions Recorded Confirmed Type Acetaminophen [Tylenol 325mg tab] 650 mg PO Q6 PRN tab 12/27/17 Rx Amitiza 24 mcg PO Q12 12/27/17 Rx Aspirin [Aspirin Chewable] 81 mg PO DAILY chew 12/27/17 Rx Docusate Sodium/Sennosides A 2 tab PO HS tab 12/27/17 Rx [Senokot S 50 MG-8.6 MG] Ibuprofen [Motrin Tab] 600 mg PO Q8 PRN tab 12/27/17 Rx Lactulose [Enulose] 20 gm PO Q8 PRN udc 12/27/17 Rx Pantoprazole [Protonix EC Tab] 40 mg PO DAILY ect 12/27/17 Rx Simethicone [Mylicon Chew Tab] 80 mg PO Q8 PRN chew 12/27/17 Rx Allergies/Adverse Reactions: Allergies Allergy/AdvReac Type Severity Reaction Status Date / Time No Known Allergies Allergy Verified 12/06/17 20:26 - Medications Medications: Current Medications Acetaminophen (Tylenol 325mg Tab) 650 mg PO Q6 PRN PRN Reason: PAIN 1-5 Last Admin: 12/22/17 21:50 Dose: 650 mg Aspirin (Aspirin Chewable) 81 mg PO DAILY [facility] Last Admin: 12/26/17 08:14 Dose: 81 mg Home Med (Amitiza) 24 mcg PO Q12 [facility] Last Admin: 12/26/17 21:32 Dose: 24 mcg Ibuprofen (Motrin Tab) 600 mg PO Q8 PRN PRN Reason: PAIN 5-10 Last Admin: 12/23/17 15:38 Dose: 600 mg Influenza Virus Vaccine (Afluria Quad (Pf) [id number]) 60 mcg IM .ONCE ONE Stop: 12/27/17 08:01 Lactulose (Enulose) 20 gm PO Q8 PRN PRN Reason: Constipation Last Admin: 12/26/17 21:32 Dose: 20 gm Lidocaine HCl (Xylocaine 2%) 1 applic TOP Q6H PRN PRN Reason: Pain, severe (8-10) Last Admin: 12/19/17 14:30 Dose: 1 applic Pantoprazole Sodium (Protonix Ec Tab) 40 mg PO DAILY [facility] Last Admin: 12/26/17 08:14 Dose: 40 mg Senna/Docusate Sodium (Senokot S 50 Mg-8.6 Mg) 2 tab PO HS [facility] Last Admin: 12/26/17 21:29 Dose: 2 tab Simethicone (Mylicon Chew Tab) 80 mg PO Q8 PRN PRN Reason: Flatulence Last Admin: 12/25/17 08:28 Dose: 80 mg Results - Vital Signs Recent Vital Signs: Last Vital Signs Temp 97.1 F L 12/26/17 20:09 Pulse 70 12/26/17 20:09 Resp 20 12/26/17 20:09 BP 120/66 12/26/17 20:09 Pulse Ox 98 12/26/17 20:09 - Labs Result Diagrams: 12/22/17 07:00 12/22/17 07:00 Labs: Laboratory Results - last 24 hr 12/26/17 11:20 TSH 3rd Generation 1.94
[2017-12-27] MEDS: Pantoprazole 40 mg EC Tab PO SCH (08:29)
[2017-12-27] MEDS: AMITIZA 24 MCG PO SCH (08:29)
[2017-12-27 10:03] VITALS: BP 131/79; RESP 22; TEMP 98.2
--- NOTE | 2017-12-27 17:03 | CP.PCM.DIS ---
Provider - Provider Date of Admission: 12/06/17 20:25 Attending physician: Tulio Drake MD Primary care physician: Roger Ferrell Consults: GI: Dr Morton Gen Surgery: Dr Corrales Neurology: Dr Roberson Physiatry: Earnest Schwartz Urology: Dr Dalal Time Spent in preparation of Discharge (in minutes): 30 Diagnosis - Discharge Diagnosis (1) Aphasia as late effect of cerebrovascular accident Status: Acute (2) Constipation Status: Acute (3) Hemiparesis affecting right side as late effect of cerebrovascular accident Status: Acute (4) Urinary retention Status: Resolved Hospital Course - Lab Results Lab Results: Most Recent Lab Values WBC 7.8 K/uL (4.8-10.8) 12/22/17 07:00 RBC 4.67 Mil/uL (4.40-5.90) 12/22/17 07:00 Hgb 14.3 g/dL (12.0-18.0) 12/22/17 07:00 Hct 43.1 % (35.0-51.0) 12/22/17 07:00 MCV 92.2 fl (80.0-94.0) 12/22/17 07:00 MCH 30.7 pg (27.0-31.0) 12/22/17 07:00 MCHC 33.3 g/dL (33.0-37.0) 12/22/17 07:00 RDW 13.7 % (11.5-14.5) 12/22/17 07:00 Plt Count 253 K/uL (130-400) 12/22/17 07:00 MPV 9.5 fl (7.2-11.7) 12/07/17 05:25 Neut % (Auto) 63.4 % (50.0-75.0) 12/07/17 05:25 Lymph % (Auto) 24.0 % (20.0-40.0) 12/07/17 05:25 York % (Auto) 8.9 % (0.0-10.0) 12/07/17 05:25 Eos % (Auto) 3.4 % (0.0-4.0) 12/07/17 05:25 Baso % (Auto) 0.3 % (0.0-2.0) 12/07/17 05:25 Neut # (Auto) 5.4 K/uL (1.8-7.0) 12/07/17 05:25 Lymph # (Auto) 2.0 K/uL (1.0-4.3) 12/07/17 05:25 York # (Auto) 0.8 K/uL (0.0-0.8) 12/07/17 05:25 Eos # (Auto) 0.3 K/uL (0.0-0.7) 12/07/17 05:25 Baso # (Auto) 0.0 K/uL (0.0-0.2) 12/07/17 05:25 Sodium 144 mmol/l (132-148) 12/22/17 07:00 Potassium 4.7 MMOL/L (3.6-5.0) 12/22/17 07:00 Chloride 104 mmol/L (98-107) 12/22/17 07:00 Carbon Dioxide 29 mmol/L (22-30) 12/22/17 07:00 Anion Gap 16 (10-20) 12/22/17 07:00 BUN 13 mg/dl (9-20) 12/22/17 07:00 Creatinine 0.8 mg/dl (0.8-1.5) 12/22/17 07:00 Est GFR ( Amer) > 60 12/22/17 07:00 Est GFR (Non-Af Amer) > 60 12/22/17 07:00 Random Glucose 99 mg/dL (75-110) 12/22/17 07:00 Hemoglobin A1c 5.4 % (4.2-6.5) 12/08/17 05:25 Calcium 10.0 mg/dL (8.4-10.2) 12/22/17 07:00 Total Bilirubin 0.5 mg/dl (0.2-1.3) 12/22/17 07:00 AST 28 U/L (17-59) 12/22/17 07:00 ALT 46 U/L (21-72) 12/22/17 07:00 Alkaline Phosphatase 49 U/L (38-126) 12/22/17 07:00 Total Protein 8.2 G/DL (6.3-8.2) 12/22/17 07:00 Albumin 4.7 g/dL (3.5-5.0) 12/22/17 07:00 Globulin 3.5 gm/dL (2.2-3.9) 12/22/17 07:00 Albumin/Globulin Ratio 1.4 (1.0-2.1) 12/22/17 07:00 Triglycerides 147 mg/DL (0-149) 12/08/17 05:25 Cholesterol 185 mg/dL (0-199) 12/08/17 05:25 LDL Cholesterol Direct 137 mg/dL (0-129) H 12/08/17 05:25 HDL Cholesterol 25 MG/DL (30-70) L 12/08/17 05:25 TSH 3rd Generation 1.94 mIU/ML (0.46-4.68) 12/26/17 11:20 Hepatitis A IgM Ab Negative (NEGATIVE) 12/22/17 07:00 Hep Bs Antigen Negative (NEGATIVE) 12/22/17 07:00 Hep B Core IgM Ab Negative (NEGATIVE) 12/22/17 07:00 Hepatitis C Antibody Negative (NEGATIVE) 12/22/17 07:00 - Hospital Course Hospital Course: 32 y/o male admitted for acute rehab after he develop dysarthria, dysphagia and right sided hemiparesis while in the recovery S/P left inguinal hernia repair. Pt was admitted to acute rehabilitation, started on physical therapy and recovery program. Pt had a oswald catheter due to urinary retention most probably due to constipation. Oswald was discontinued 1 week later after he developed irritation and pain on urethra which resolved spontaneously. During hospitalization, pt complained of abdominal distension and small bowel movements, pt was treated with different medications such as colace, lactulose, miralax, magnessium citrate with partial improvement. Since a few days ago, pt was started with Amitiza which seems to alleviate abdominal pain and distension. Pt was also complaining of L inguinal pain upon stretching or with positional changes. Pain seemed muscular and alleviated with PO Acetaminophen. --Pt was seen and examined by bedside with Dr Drake, pt reported feeling well, able to complete physical therapy sessions. Pt afebrile, tolerating PO, stable is to be discharged to [facility] for continuation of rehabilitation. Meds reconcilled. Discharge Exam - Additional Findings Additional findings: - Constitutional Appears: No Acute Distress - Head Exam Head Exam: ATRAUMATIC, NORMAL INSPECTION - Eye Exam Eye Exam: Normal appearance - Neck Exam Neck Exam: Full ROM - Respiratory Exam Respiratory Exam: Clear to Ausculation Bilateral, NORMAL BREATHING PATTERN - Cardiovascular Exam Cardiovascular Exam: REGULAR RHYTHM, +S1, +S2 - GI/Abdominal Exam GI & Abdominal Exam: Soft. absent: Distended, Guarding, Tenderness - Neurological Exam Neurological Exam: Alert, Awake, Oriented x3 Discharge Plan - Follow Up Plan Condition: GOOD Disposition: REHAB FACILITY/REHAB UNIT Additional Instructions: -Continue with physical therapy and rehabilitation.
== END 2017-12-27 13:30 | DRG 57 ==
PROVIDERS: ADMIT Family Medicine; ATTEND Family Medicine
PROC: F07Z9FZ Gait Training/Functional Ambulation Treatment using Assistive, Adaptive, Supportive or Protective Equipment (ICD-10-PCS; principal; 2017-12-06)
DX: I69.351 Hemiplegia and hemiparesis following cerebral infarction affecting right dominant side (principal); F32.9 Major depressive disorder, single episode, unspecified; B86 Scabies; I69.320 Aphasia following cerebral infarction; F17.290 Nicotine dependence, other tobacco product, uncomplicated

== ENCOUNTER 2018-04-09 06:16 | Observation (INO) | payer BC ==
[2018-04-09 12:28] VITALS: BMI 32.2
[2018-04-09 13:45] LABS: HEMOGLOBIN 15.8 g/dL (12.0-18.0); MEAN CORPUSCULAR HEMOGLOBIN 29.6 pg (27.0-31.0); MEAN CORPUSCULAR HGB CONC 33.6 g/dL (33.0-37.0); RBC 5.33 Mil/uL (4.40-5.90); RED CELL DISTRIBUTION WIDTH 12.6 % (11.5-14.5); WHITE BLOOD COUNT 8.1 K/uL (4.8-10.8)
[2018-04-09 14:04] LABS: ALB/GLOB RATIO 1.5 (1.0-2.1); ALBUMIN 4.8 g/dL (3.5-5.0); ALT/SGPT 46 U/L (21-72); AST/SGOT 31 U/L (17-59); BLOOD UREA NITROGEN 16 mg/dl (9-20); CALCIUM 9.9 mg/dL (8.4-10.2); GFR NON-AFRICAN AMERICAN > 60
[2018-04-09] MEDS: AMITIZA 24 MCG PO SCH (21:04)
[2018-04-09] MEDS: ROSUVASTATIN 5 MG PO SCH (21:04)
[2018-04-10] MEDS ORDERED: Magnesium Hydroxide Susp 30 ml UD PO STA (06:15)
[2018-04-10] MEDS: POLYETHYLENE GLYCOL 3350 17 GM/Dose PACKET PO SCH (08:33)
[2018-04-10] MEDS: AMITIZA 24 MCG PO SCH ×2 (08:33→21:05)
[2018-04-10] MEDS: Pantoprazole 40 mg EC Tab PO SCH (08:34)
--- NOTE | 2018-04-10 13:34 | CP.PCM.CON ---
History of Present Illness - History of Present Illness History of Present Illness: 32 yr old male who is a patient of Dr. Jones, from [facility], who had an anoxic insult after a stent procedure, resulting right sided plegia with dysarthria. He went to Rehab and then had some abnormal movements with loc, but now does not have any further issues. Of note, I saw this patient in [facility] several months ago and he was Past Patient History - Past Medical History & Family History Past Medical History?: No - Past Social History Smoking Status: Former Smoker - CARDIAC Hx Cardiac Disorders: No Hx Angina: No Hx Atrial Fibrillation: No Hx Cardia Arrhythmia: No Hx Circulatory Problems: No Hx Congestive Heart Failure: No Hx Heart Attack: No Hx Heart Murmur: No Hx Heart Transplant: No Hx Hypercholesterolemia: Yes Hx Hypertension: No Hx Hypotension: No Hx Internal Defibrillator: No Hx Mitral Valve Prolapse: No Hx Pacemaker: No Hx Peripheral Edema: No Hx Peripheral Vascular Disease: No - PULMONARY Hx Respiratory Disorders: Yes Hx Asthma: Yes (Only when pt. was "a little kid") Hx Bronchitis: No Hx Chronic Obstructive Pulmonary Disease (COPD): No Hx Emphysema: No Hx Lung Cancer: No Hx Pneumonia: No Hx Pulmonary Edema: No Hx Pulmonary Embolism: No Hx Respiratory Aspiration: No Hx Respiratory Tract Infection: No Hx Sleep Apnea: No Hx Tuberculosis: No - NEUROLOGICAL Hx Neurological Disorder: Yes Hx Alzheimer's Disease: No HX Cerebrovascular Accident: Yes Hx Dementia: No Hx Dizziness: No Hx Meningitis: No Hx Migraine: Yes (headache) Hx Multiple Sclerosis: No Hx Paralysis: Yes Hx Parkinson's Disease: No Hx Seizures: No (questionable) Hx Syncope: No Hx Transient Ischemic Attacks (TIA): No Hx Vertigo: No - HEENT Hx HEENT Problems: No Hx Blind: No Hx Cataracts: No Hx Deafness: No Hx Difficulty Chewing: No Hx Epistaxis: No Hx Glaucoma: No Hx Macular Degeneration: No Hx Sinusitis: No - RENAL Hx Chronic Kidney Disease: No Hx Dialysis: No Hx Kidney Stones: No Hx Neurogenic Bladder: No Hx Pyelonephritis: No Hx Renal (Kidney) Cancer: No Hx Renal Failure: No - ENDOCRINE/METABOLIC Hx Endocrine Disorders: No Hx Adrenal Cancer: No Hx Diabetes Insipidus: No Hx Diabetes Mellitus Type 1: No Hx Diabetes Mellitus Type 2: No Hx Hyperthyroidism: No Hx Hypothyroidism: No Hx Systemic Lupus Erythematosus: No - HEMATOLOGICAL/ONCOLOGICAL Hx Blood Disorders: No Hx AIDS: No Hx Anemia: No Hx Blood Transfusions: No Hx Blood Transfusion Reaction: No Hx Bruising: No Hx Cancer: No Hx Chemotherapy: No Hx Cirrhosis: No Hx Gum Bleeding: No Hx Hemophilia: No Hx Hepatitis A: No Hx Hepatitis B: No Hx Hepatitis C: No Hx Human Immunodeficiency Virus (HIV): No Hx Leukemia: No Hx Metastesis: No Hx Shingles: No Hx Sickle Cell Disease: No Hx Unexplained Bleeding: No Hx von Willebrand's Disease: No - INTEGUMENTARY Hx Dermatological Problems: No Hx Basil Cell: No Hx Haywood: No Hx Cellulitis: No Hx Eczema: No Hx Melanoma: No Hx Psoriasis: No Hx Squamous Cell: No Other/Comment: CHICKEN POX - MUSCULOSKELETAL/RHEUMATOLOGICAL Hx Musculoskeletal Disorders: Yes Hx Arthritis: No Hx Back Pain: No Hx Degenerative Joint Disease: No Hx Falls: No Hx Fractures: Yes Hx Gout: No Hx Herniated Disk: No Hx Myasthenia Gravis: No Hx Osteoarthritis: No Hx Osteomyelitis: No Hx Osteoporosis: No Hx Rhabdomyolysis: No Hx Rheumatoid Arthritis: No Hx Spinal Stenosis: No Hx Unsteady Gait: Yes Other/Comment: - Post-operative extrapyramidal deficit - GASTROINTESTINAL Hx Gastrointestinal Disorders: Yes Hx Bowel Surgery: No Hx Clostridium Difficile: No Hx Colitis: No Hx Colostomy: No Hx Constipation: Yes Hx Crohn's Disease: No Hx Diarrhea: No Hx Diverticulitis: No Hx Esophageal Varices: No Hx Fatty Liver Disease: No Hx Gall Bladder Disease: No Hx Gastritis: No Hx Gastroesophageal Reflux: No Hx Hemorrhoids: No Hx Ileostomy: No Hx Irritable Bowel: No Hx Liver Failure: No Hx Nausea: No Hx Pancreatitis: No HX Swallowing Problems: No Hx Ulcer: No Hx Vomiting: No - GENITOURINARY/GYNECOLOGICAL Hx Genitourinary Disorders: Yes Hx Bladder Cancer: No Hx Bladder Stone: No Hx Hematuria: No Hx Incontinence: Yes Hx Prostate Cancer: No Hx Prostate Problems: No Hx Reproductive Disorders: No Hx Sexually Transmitted Disorders: No Hx Urinary Tract Infection: No Other/Comment: - Post-operative urinary retention - PSYCHIATRIC Hx Psychophysiologic Disorder: No Hx Anxiety: No Hx Bipolar Disorder: No Hx Depression: No Hx Emotional Abuse: No Hx Hallucinations: No Hx Panic Symptoms: No Hx Paranoia: No Hx Post Traumatic Stress Disorder: No Hx Psychosis: No Hx Physical Abuse: No Hx Schizophrenia: No Hx Sexual Abuse: No Hx Substance Use: No - SURGICAL HISTORY Hx Surgeries: Yes Hx Abdominal Aortic Aneurysm Repair: No Hx Amputation: No Hx Angiogram: No Hx Angioplasty: No Hx Appendectomy: No Hx Arteriovenous Shunt: No Hx Arthroscopy: No Hx Bile Duct Stent: No Hx Breast Biopsy: No Hx Cataract Extraction: No Hx Cardiac Catheterization: No Hx Carotid Endarterectomy: No Hx Section: No Hx Cholecystectomy: No Hx Coronary Artery Bypass Graft: No Hx Coronary Stent: No Hx Dilation and Curettage: No Hx Eye Surgery: No Hx Femoral-Popliteal Bypass Graft: No Hx Gastric Bypass Surgery: No Hx Herniorrhaphy: No Hx Hysterectomy: No Hx Joint Replacement: No Hx Kidney Transplant: No Hx Liver Transplant: No Hx Mastectomy: No Hx Musculoskeletal Surgery: No Hx Open Heart Surgery: No Hx Open Reduction Internal Fixation: No Hx Orthopedic Surgery: Yes Hx Parathyroidectomy: No Hx Penile Implant: No Hx Pulmonary Surgery: No Hx Splenectomy: No Hx Thyroidectomy: No Hx Tonsillectomy: No Hx Tubal Ligation: No Hx Valve Replacement: No Hx Vascular Surgery: No Hx Vascular Access Device: No Other/Comment: - 11/27/2017: Laparoscopic left inguinal hernia repair. 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 - When patient was [age] years of age: surgery to reattach left middle finger. LEFT 3RD FINGER REPAIR - ANESTHESIA Hx Anesthesia: Yes Hx Anesthesia Reactions: Yes (1) No recollection and no swallowing for about 3 days) Hx Malignant Hyperthermia: No Has any member of the family had a problem w/ anesthesia?: No Meds Allergies/Adverse Reactions: Allergies Allergy/AdvReac Type Severity Reaction Status Date / Time No Known Allergies Allergy Verified 01/22/18 07:52 - Medications Medications: Current Medications Acetaminophen (Tylenol 325mg Tab) 650 mg PO Q4 PRN PRN Reason: Pain, Mild (1-3) Aspirin (Aspirin Chewable) 81 mg PO DAILY [facility] Last Admin: 04/10/18 08:30 Dose: 81 mg Benztropine Mesylate (Cogentin) 0.5 mg PO DAILY [facility] Last Admin: 04/10/18 08:32 Dose: 0.5 mg Home Med (Patient's Own Medication) 24 unit PO Q12 [facility] Last Admin: 04/10/18 08:33 Dose: 24 unit Home Med (Patient's Own Medication) 5 unit PO HS [facility] Last Admin: 04/09/18 21:04 Dose: 5 unit Lactulose (Enulose) 20 gm PO DAILY PRN PRN Reason: Constipation Last Admin: 04/09/18 16:56 Dose: 20 gm Pantoprazole Sodium (Protonix Ec Tab) 40 mg PO DAILY [facility] Last Admin: 04/10/18 08:34 Dose: 40 mg Polyethylene Glycol (Miralax) 17 gm PO DAILY [facility] Last Admin: 04/10/18 08:33 Dose: 17 gm Tamsulosin HCl (Flomax) 0.4 mg PO DAILY [facility] Last Admin: 04/10/18 08:33 Dose: 0.4 mg Tizanidine HCl (Zanaflex) 4 mg PO TID [facility] Last Admin: 04/10/18 12:17 Dose: 4 mg Tramadol HCl (Ultram) 50 mg PO Q8H PRN PRN Reason: Pain, moderate (4-7) Results - Vital Signs Recent Vital Signs: Last Vital Signs Temp 98.4 F 04/10/18 12:00 Pulse 83 04/10/18 12:00 Resp 13 04/10/18 12:00 BP 103/51 L 04/10/18 12:00 Pulse Ox 93 L 04/10/18 12:00 - Labs Result Diagrams: 04/09/18 13:25 04/09/18 13:25 Labs: Laboratory Results - last 24 hr 04/09/18 04/09/18 13:25 13:25 WBC 8.1 RBC 5.33 Hgb 15.8 Hct 46.9 MCV 88.0 D MCH 29.6 MCHC 33.6 RDW 12.6 Plt Count 199 Sodium 141 Potassium 4.1 Chloride 103 Carbon Dioxide 25 Anion Gap 17 BUN 16 Creatinine 0.8 Est GFR ( Amer) > 60 Est GFR (Non-Af Amer) > 60 Random Glucose 101 Calcium 9.9 Total Bilirubin 0.4 AST 31 ALT 46 Alkaline Phosphatase 54 Total Protein 8.1 Albumin 4.8 Globulin 3.2 Albumin/Globulin Ratio 1.5
[2018-04-10] MEDS: ROSUVASTATIN 5 MG PO SCH (21:05)
[2018-04-11] MEDS: POLYETHYLENE GLYCOL 3350 17 GM/Dose PACKET PO SCH (08:23)
[2018-04-11] MEDS: AMITIZA 24 MCG PO SCH (08:23)
[2018-04-11] MEDS: Pantoprazole 40 mg EC Tab PO SCH (08:24)
--- NOTE | 2018-04-11 10:47 | CP.PCM.PN ---
Subjective - Date & Time of Evaluation Date of Evaluation: 04/11/18 Time of Evaluation: 10:40 - Subjective Subjective: Neuro Follow-Up Note: Mr. Patel was evaluated this morning in the ICU. VEEG was discontinued this morning per the pt. He denies any new complaints today and feels generally well. Still admits to weakness to his right arm and leg but this is not a new complaint. Also admits to jerky movements to his right leg on/off since he was at rehab (last episode of this per the pt was yesterday). Denies h/a, dizziness, visual changes, chest pain, palpitations, sob, abd pain, n/v/d, new paresthesias. Objective - Vital Signs/Intake and Output Vital Signs (last 24 hours): Temp Pulse Resp BP Pulse Ox 98.2 F 67 11 L 110/74 96 04/11/18 08:00 04/11/18 08:00 04/11/18 08:00 04/11/18 04:00 04/11/18 04:00 - Medications Medications: Current Medications Acetaminophen (Tylenol 325mg Tab) 650 mg PO Q4 PRN PRN Reason: Pain, Mild (1-3) Last Admin: 04/10/18 23:01 Dose: 650 mg Acetaminophen (Tylenol 325mg Tab) 650 mg PO Q4 PRN PRN Reason: Headache Aspirin (Aspirin Chewable) 81 mg PO DAILY [facility] Last Admin: 04/11/18 08:22 Dose: 81 mg Benztropine Mesylate (Cogentin) 0.5 mg PO DAILY [facility] Last Admin: 04/11/18 08:22 Dose: 0.5 mg Home Med (Patient's Own Medication) 24 unit PO Q12 [facility] Last Admin: 04/11/18 08:23 Dose: 24 unit Home Med (Patient's Own Medication) 5 unit PO HS [facility] Last Admin: 04/10/18 21:05 Dose: 5 unit Lactulose (Enulose) 20 gm PO DAILY PRN PRN Reason: Constipation Last Admin: 04/10/18 16:34 Dose: 20 gm Pantoprazole Sodium (Protonix Ec Tab) 40 mg PO DAILY [facility] Last Admin: 04/11/18 08:24 Dose: 40 mg Polyethylene Glycol (Miralax) 17 gm PO DAILY [facility] Last Admin: 04/11/18 08:23 Dose: 17 gm Tamsulosin HCl (Flomax) 0.4 mg PO DAILY [facility] Last Admin: 04/11/18 08:23 Dose: 0.4 mg Tizanidine HCl (Zanaflex) 4 mg PO TID [facility] Last Admin: 04/11/18 08:24 Dose: 4 mg Tramadol HCl (Ultram) 50 mg PO Q8H PRN PRN Reason: Pain, moderate (4-7) Last Admin: 04/10/18 23:28 Dose: 50 mg - Labs Labs: 04/09/18 13:25 04/09/18 13:25 - Constitutional Appears: Well, Non-toxic, No Acute Distress - Head Exam Head Exam: ATRAUMATIC, NORMAL INSPECTION, NORMOCEPHALIC - Eye Exam Eye Exam: EOMI, Normal appearance, PERRL Pupil Exam: NORMAL ACCOMODATION, PERRL - ENT Exam ENT Exam: Mucous Membranes Moist - Neck Exam Neck Exam: Full ROM, Normal Inspection - Respiratory Exam Respiratory Exam: NORMAL BREATHING PATTERN - Extremities Exam Extremities Exam: absent: Calf Tenderness, Full ROM, Pedal Edema Additional comments: FROM to LUE and LLE. Decreased ROM to RUE with weakened driver license examiner. Unable to move RLE; unable to plantar or dorsi flex. - Neurological Exam Neurological Exam: Alert, Awake, Oriented x3. absent: Reflexes Normal Neuro motor strength exam: Left Upper Extremity: 5 (driver license examiner 5/5), Right Upper Extremity: 3 (driver license examiner 3/5), Left Lower Extremity: 5 (plantar flexion 5/5), Right Lower Extremity: 0 (unable to plantar flex) Additional comments: Speech clear Follows all commands Strength/Motor: FROM to LUE and LLE. Decreased ROM to RUE with weakened driver license examiner. Unable to move RLE; unable to plantar or dorsi flex. Sensation: Normal sensation to LUE and LLE Decreased sensation to RUE and RLE Reflexes normal LLE; hyporeflexia to RLE Unable to elicit plantar response from right foot; toes down going on left side. No tremors or abnormal movements noted. Gait not assessed; walker noted at bedside. - Psychiatric Exam Psychiatric exam: Normal Affect, Normal Mood - Skin Skin Exam: Normal Color Assessment and Plan - Assessment and Plan (Free Text) Assessment: A/P: Mr. Patel is a 32 y/o M who was admitted for a 72 hour eeg. He follows up with Dr. Claros (neuro) who sent him for the EEG. The pt was recently at rehab (d/c'd home on Saturday04/01/18), where he developed abnormal movements with LOC several days prior to his d/c. -VEEG discontinued this morning prior to neuro rounds. No need to complete another 24 hours (for the full 72 hours) per Dr. Thakkar. -Continue current medications and treatment. -Pt can be d/c home. He is to follow up with Dr. Claros as outpatient within 1-2 weeks to discuss the VEEG results. No further recommendations. Thank you for allowing us to participate in this pt's care. Laura Ta, DYLAN, COMPENSATION DIRECTOR Discussed with Dr. Thakkar
[2018-04-11 12:26] VITALS: BP 104/50; PULSE 74; RESP 15; TEMP 98.1; O2SAT 93
--- NOTE | 2018-04-12 18:02 | CP.PCM.HP ---
History of Present Illness - History of Present Illness History of Present Illness: 32 yo male admited for VEEG. 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 recently with episodes of sleep paralysis referred by dr. duenas for VEEG no complaints offered at this time feels well. Present on Admission - Present on Admission Any Indicators Present on Admission: No Review of Systems - Review of Systems All systems: reviewed and no additional remarkable complaints except (mentioned above) Past Patient History - Past Medical History & Family History Past Medical History?: No Past Family History: Reviewed and not pertinent - Past Social History Smoking Status: Former Smoker - CARDIAC Hx Cardiac Disorders: No Hx Angina: No Hx Atrial Fibrillation: No Hx Cardia Arrhythmia: No Hx Circulatory Problems: No Hx Congestive Heart Failure: No Hx Heart Attack: No Hx Heart Murmur: No Hx Heart Transplant: No Hx Hypercholesterolemia: Yes Hx Hypertension: No Hx Hypotension: No Hx Internal Defibrillator: No Hx Mitral Valve Prolapse: No Hx Pacemaker: No Hx Peripheral Edema: No Hx Peripheral Vascular Disease: No - PULMONARY Hx Respiratory Disorders: Yes Hx Asthma: Yes (Only when pt. was "a little kid") Hx Bronchitis: No Hx Chronic Obstructive Pulmonary Disease (COPD): No Hx Emphysema: No Hx Lung Cancer: No Hx Pneumonia: No Hx Pulmonary Edema: No Hx Pulmonary Embolism: No Hx Respiratory Aspiration: No Hx Respiratory Tract Infection: No Hx Sleep Apnea: No Hx Tuberculosis: No - NEUROLOGICAL Hx Neurological Disorder: Yes Hx Alzheimer's Disease: No HX Cerebrovascular Accident: Yes Hx Dementia: No Hx Dizziness: No Hx Meningitis: No Hx Migraine: Yes (headache) Hx Multiple Sclerosis: No Hx Paralysis: Yes Hx Parkinson's Disease: No Hx Seizures: No (questionable) Hx Syncope: No Hx Transient Ischemic Attacks (TIA): No Hx Vertigo: No - HEENT Hx HEENT Problems: No Hx Blind: No Hx Cataracts: No Hx Deafness: No Hx Difficulty Chewing: No Hx Epistaxis: No Hx Glaucoma: No Hx Macular Degeneration: No Hx Sinusitis: No - RENAL Hx Chronic Kidney Disease: No Hx Dialysis: No Hx Kidney Stones: No Hx Neurogenic Bladder: No Hx Pyelonephritis: No Hx Renal (Kidney) Cancer: No Hx Renal Failure: No - ENDOCRINE/METABOLIC Hx Endocrine Disorders: No Hx Adrenal Cancer: No Hx Diabetes Insipidus: No Hx Diabetes Mellitus Type 1: No Hx Diabetes Mellitus Type 2: No Hx Hyperthyroidism: No Hx Hypothyroidism: No Hx Systemic Lupus Erythematosus: No - HEMATOLOGICAL/ONCOLOGICAL Hx Blood Disorders: No Hx AIDS: No Hx Anemia: No Hx Blood Transfusions: No Hx Blood Transfusion Reaction: No Hx Bruising: No Hx Cancer: No Hx Chemotherapy: No Hx Cirrhosis: No Hx Gum Bleeding: No Hx Hemophilia: No Hx Hepatitis A: No Hx Hepatitis B: No Hx Hepatitis C: No Hx Human Immunodeficiency Virus (HIV): No Hx Leukemia: No Hx Metastesis: No Hx Shingles: No Hx Sickle Cell Disease: No Hx Unexplained Bleeding: No Hx von Willebrand's Disease: No - INTEGUMENTARY Hx Dermatological Problems: No Hx Basil Cell: No Hx Haywood: No Hx Cellulitis: No Hx Eczema: No Hx Melanoma: No Hx Psoriasis: No Hx Squamous Cell: No Other/Comment: CHICKEN POX - MUSCULOSKELETAL/RHEUMATOLOGICAL Hx Musculoskeletal Disorders: Yes Hx Arthritis: No Hx Back Pain: No Hx Degenerative Joint Disease: No Hx Falls: No Hx Fractures: Yes Hx Gout: No Hx Herniated Disk: No Hx Myasthenia Gravis: No Hx Osteoarthritis: No Hx Osteomyelitis: No Hx Osteoporosis: No Hx Rhabdomyolysis: No Hx Rheumatoid Arthritis: No Hx Spinal Stenosis: No Hx Unsteady Gait: Yes Other/Comment: - Post-operative extrapyramidal deficit - GASTROINTESTINAL Hx Gastrointestinal Disorders: Yes Hx Bowel Surgery: No Hx Clostridium Difficile: No Hx Colitis: No Hx Colostomy: No Hx Constipation: Yes Hx Crohn's Disease: No Hx Diarrhea: No Hx Diverticulitis: No Hx Esophageal Varices: No Hx Fatty Liver Disease: No Hx Gall Bladder Disease: No Hx Gastritis: No Hx Gastroesophageal Reflux: No Hx Hemorrhoids: No Hx Ileostomy: No Hx Irritable Bowel: No Hx Liver Failure: No Hx Nausea: No Hx Pancreatitis: No HX Swallowing Problems: No Hx Ulcer: No Hx Vomiting: No - GENITOURINARY/GYNECOLOGICAL Hx Genitourinary Disorders: Yes Hx Bladder Cancer: No Hx Bladder Stone: No Hx Hematuria: No Hx Incontinence: Yes Hx Prostate Cancer: No Hx Prostate Problems: No Hx Reproductive Disorders: No Hx Sexually Transmitted Disorders: No Hx Urinary Tract Infection: No Other/Comment: - Post-operative urinary retention - PSYCHIATRIC Hx Psychophysiologic Disorder: No Hx Anxiety: No Hx Bipolar Disorder: No Hx Depression: No Hx Emotional Abuse: No Hx Hallucinations: No Hx Panic Symptoms: No Hx Paranoia: No Hx Post Traumatic Stress Disorder: No Hx Psychosis: No Hx Physical Abuse: No Hx Schizophrenia: No Hx Sexual Abuse: No Hx Substance Use: No - SURGICAL HISTORY Hx Surgeries: Yes Hx Abdominal Aortic Aneurysm Repair: No Hx Amputation: No Hx Angiogram: No Hx Angioplasty: No Hx Appendectomy: No Hx Arteriovenous Shunt: No Hx Arthroscopy: No Hx Bile Duct Stent: No Hx Breast Biopsy: No Hx Cataract Extraction: No Hx Cardiac Catheterization: No Hx Carotid Endarterectomy: No Hx Section: No Hx Cholecystectomy: No Hx Coronary Artery Bypass Graft: No Hx Coronary Stent: No Hx Dilation and Curettage: No Hx Eye Surgery: No Hx Femoral-Popliteal Bypass Graft: No Hx Gastric Bypass Surgery: No Hx Herniorrhaphy: No Hx Hysterectomy: No Hx Joint Replacement: No Hx Kidney Transplant: No Hx Liver Transplant: No Hx Mastectomy: No Hx Musculoskeletal Surgery: No Hx Open Heart Surgery: No Hx Open Reduction Internal Fixation: No Hx Orthopedic Surgery: Yes Hx Parathyroidectomy: No Hx Penile Implant: No Hx Pulmonary Surgery: No Hx Splenectomy: No Hx Thyroidectomy: No Hx Tonsillectomy: No Hx Tubal Ligation: No Hx Valve Replacement: No Hx Vascular Surgery: No Hx Vascular Access Device: No Other/Comment: - 11/27/2017: Laparoscopic left inguinal hernia repair. 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 - When patient was 4 or 5 years of age: surgery to reattach left middle finger. LEFT 3RD FINGER REPAIR - ANESTHESIA Hx Anesthesia: Yes Hx Anesthesia Reactions: Yes (1) No recollection and no swallowing for about 3 days) Hx Malignant Hyperthermia: No Has any member of the family had a problem w/ anesthesia?: No Meds Allergies/Adverse Reactions: Allergies Allergy/AdvReac Type Severity Reaction Status Date / Time No Known Allergies Allergy Verified 01/22/18 07:52 Physical Exam - Constitutional Appears: Well, Non-toxic - Head Exam Head Exam: NORMAL INSPECTION - Eye Exam Eye Exam: Normal appearance - Respiratory Exam Respiratory Exam: NORMAL BREATHING PATTERN - Cardiovascular Exam Cardiovascular Exam: +S1, +S2 - GI/Abdominal Exam GI & Abdominal Exam: Soft - Neurological Exam Neurological exam: Alert, Oriented x3 - Psychiatric Exam Psychiatric exam: Normal Affect, Normal Mood - Skin Skin Exam: Normal Color, Warm Results - Vital Signs Recent Vital Signs: Last Vital Signs Temp 98.1 F 04/11/18 12:00 Pulse 74 04/11/18 12:00 Resp 15 04/11/18 12:00 BP 104/50 L 04/11/18 12:00 Pulse Ox 93 L 04/11/18 12:00 - Labs Result Diagrams: 04/09/18 13:25 04/09/18 13:25 Assessment & Plan (1) Sleep paralysis Status: Suspected (2) Aphasia as late effect of cerebrovascular accident Status: Acute (3) Hemiparesis affecting right side as late effect of cerebrovascular accident Status: Acute
== END 2018-04-11 16:40 | disposition home or self-care (01) ==
LOC: H.ICU/CCU 12:53
PROVIDERS: ADMIT Family Medicine; ATTEND Family Medicine
DX: G83.89 Other specified paralytic syndromes (principal); I69.320 Aphasia following cerebral infarction; I69.351 Hemiplegia and hemiparesis following cerebral infarction affecting right dominant side; Z87.891 Personal history of nicotine dependence
CPT/HCPCS: 80053; 85027; 87081; 95951; G0378